=== PATIENT | male | born 1955 | race Caucasian/White ===

== ENCOUNTER 2022-02-09 15:29 | Outpatient (CLI) | payer MEDICARE, BC, SELFPAY ==
[2022-02-09 14:02] LABS: Chloride* 105 mmol/L (96-114); Potassium* 4.8 mmol/L (3.6-5.1); Sodium* 140 mmol/L (135-149)
[2022-02-09 14:04] LABS: Aspartate Amino Transferase* 27 U/L (12-35); Bilirubin Total* 0.6 mg/dL (0.1-1.5); Carbon Dioxide* 31 mmol/L (20-32); Cholesterol* 186 mg/dL (90-199); Creatinine* 0.8 mg/dL (0.5-1.5); Estimated Glomerular Filt Rate 97 ml/min; Total Protein* 6.6 g/dL (6.0-8.3)
[2022-02-09 14:05] LABS: Alanine Aminotransferase* 38 U/L (4-50); Alkaline Phosphatase* 95 U/L (40-150); Blood Urea Nitrogen* 18 mg/dL (7-30); Calcium* 8.9 mg/dL (8.4-10.6); Glucose* 105 mg/dL (60-115); Triglycerides* 138 mg/dL (40-149)
[2022-02-09 14:06] LABS: HDL Cholesterol* 41 mg/dL (>=40); LDL Cholesterol Calculated 117 mg/dL (<100)
[2022-02-09 14:35] LABS: PSA Screen* 2.14 ng/mL (0.10-4.00)
== END 2022-02-09 15:30 | disposition home or self-care (01) ==
PROVIDERS: PCP Internal Medicine; Visit Provider Internal Medicine
DX: E78.5 Hyperlipidemia, unspecified (principal)
CPT/HCPCS: 80053; 80061; 84153

== ENCOUNTER 2023-08-08 08:28 | Outpatient (CLI) | payer MEDICARE, SELFPAY ==
--- OUTSIDE RECORDS SUMMARY | 2023-08-08 12:41 | XMS_ITS | Clinical Summary ---
Author Name Unknown Organization [facility] Address [place], [place] [address] Care Team Providers Care Senior Clinical Study Manager Name Role Phone Macario Villa MD Primary Care Provider Allergies Active Allergy Reactions Criticality Noted Date Comments Ragweed Other - Describe In Comment Field sneezing Medications Medication Sig Dispensed Refills Start Date End Date Status aspirin (ECOTRIN) 81 mg enteric coated tablet Take 1 tablet by mouth once every other day. 0 02/12/2019 Active durable medical equipment (DME)Indications:Non-he aling ulcer of left foot, unspecified ulcer stage (HC),Acquired supination of left foot,Left foot drop Custom AFO for left foot 1 Each 0 05/13/2019 Active atorvastatin (LIPITOR) 20 mg tablet Take 1 Tablet (20 mg) by mouth once daily. 0 01/01/2022 Active Active Problems Problem Noted Date Diagnosed Date Acquired supination of left foot 05/13/2019 Left foot drop 05/13/2019 Non-healing ulcer of left foot 03/11/2019 Non-healing ulcer of ankle 02/17/2019 HYPERLIPIDEMIA 10/19/2003 Immunizations Name Administration Dates Next Due Tdap 02/09/2011 Family History Medical History Relation Name Comments Genetic Other Mother had Diab etes.~Father has hypercholesterolemia Relation Name Status Comments Other Social History Tobacco Use Types Packs/Day Years Used Date Smoking Tobacco: Former Cigarettes Smokeless Tobacco: Current Chew Tobacco Cessation:Counseling Given: Yes Alcohol Use Standard Drinks/Week Comments Yes 0 (1 standard drink = 0.6 oz pur e alcohol) 1 drink per month ks 01/01/22 Sex and Gender Information Value Date Recorded Sex Assigned at Not on file Gender Identity Not on file Sexual Orientation Not on file Obstetrics History Last Filed Vital Signs Vital Sign Reading Time Taken Comments Blood Pressure 162/106 01/01/2022 8:47 AM CDT Pulse 114 01/01/2022 8:47 AM CDT Temperature 36.3 ??C (97.3 ??F) 01/01/2022 8:47 AM CD T Respiratory Rate 18 01/01/2022 8:47 AM CDT Oxygen Saturation 95% 01/01/2022 8:47 AM CDT Inhaled Oxygen Concentration - - Weight 81.9 kg (180 lb 8 oz) 01/01/2022 8:47 AM CDT Height 181.6 cm (5' 11.5) 02/25/2019 1:23 PM CD T Body Mass Index 24.82 02/25/2019 1:23 PM CDT Plan of Treatment Health Maintenance Due Date Last Done Comments COVID-19 vaccine series (#1) 1955 Depression screening for age 12+ 1967 Hepatitis C screening for age 18-79 1973 Colonoscopy through age 75 01/30/2000 Zoster (shingles) series for age 50+ (1 of 2) 2005 Lipids for age 45-75 11/02/2008 11/03/2003, 11/03/19 04 Medicare Wellness for age 65+ 01/30/2020 Pneumococcal series for age 65+ (1 of 1 - PCV) 01/30/2020 BMI (ht and wt on same day) for age 18+ 02/26/2020 0 02/25/2019 Tetanus booster 02/09/2021 02/09/2011 Influenza for age 65+ 03/08/2023 Tdap Completed 02/09/2011 Care Teams Senior Clinical Study Manager Relationship Specialty Start Date End Date Macario Villa MD [address] [place] [address] PCP - General Emergency Medicine 02/22/16
--- OUTSIDE RECORDS SUMMARY | 2023-08-08 12:42 | XMS_ITS | Encounter Summary ---
Author Name Unknown Organization [facility] Address [address] [place] [id number] Care Team Providers Care Hasher Operator Name Role Phone Elsewhere, Pcp Primary Care Provider Unavailabl e Reason for Visit * Reason Onset Date Comments Appt Request 04/11/2023 Encounter Details Date Type Department Care Team ([facility] st Contact Info) Description 04/11/2023 Clinical Communication Department of Urology in [place], [place] [address] [place] [phone] Yuliana Flanagan, PGenoAOnel. [address] [place] [phone] Appt Request Social History Tobacco Use Types Packs/Day Years Used Date Smoking Tobacco: Former Cigarettes 0 0 0 07/12/1967 - 12/02/2006 Smokeless Tobacco: Current Chew Alcohol Use Standard Drinks/Week Comments Yes 1 (1 standard drink = 0.6 oz pur e alcohol) Humiliation, Afraid, Rape, and Kick questionnair e Answer Date Recorded Within the last year, have y ou been afraid of your partner or ex-partner? No 11/24/2022 Within the last year, have y ou been humiliated or emotionally abused in other ways by your partner or ex-partner? No Within the last year, have y ou been kicked, hit, slapped, or otherwise physically hurt by your partner or ex-partner? No 11/24/2022 Within the last year, have y ou been raped or forced to have any kind of sexual activity by your partner or ex-partner? No 11/24/2022 Social Connection and Isolat ion Panel [NHANES] Answer Date Recorded In a typical week, how many times do you talk on the phone with family, friends, or neighbors? More than three times a week 11/24/2022 How often do you get togethe r with friends or relatives? Once a week 11/24/2022 How often do you attend chur ch or oriental orthodox services? More than 4 times per year 11/24/2022 Do you belong to any clubs o r organizations such as mormonism groups, unions, fraternal or athletic groups, or school groups? Yes 11/24/2022 How often do you attend meet ings of the clubs or organizations you belong to? More than 4 times per year 11/24/2022 Are you , , di vorced, , never , or living with a partner? 11/24/2022 AUDIT-C Answer Date Recorded Q1: How often do you have a drink containing alc ohol? Monthly or less 11/24/2022 Q2: How many drinks containi ng alcohol do you have on a typical day when you are drinking? 1 or 2 11/24/2022 Q3: How often do you have si x or more drinks on one occasion? Never 11/24/2022 Overall Financial Resource Strain (CARDIA) Answe r Date Recorded How hard is it for you to pa y for the very basics like food, housing, medical care, and heating? Not hard at all 11/24/2022 [facility] - Occupational Stress Questionnaire Answer Date Recorded Do you feel stress - tense, restless, nervous, or anxious, or unable to sleep at night because your mind is troubled all the time - these days? Not at all 11/24/2022 Exercise Vital Sign Answer Date Recorde d On average, how many days pe r week do you engage in moderate to strenuous exercise (like a brisk walk)? 0 days 11/24/2022 On average, how many minutes do you engage in exercise at this level? 0 min 11/24/2022 Hunger Vital Sign Answer Date Recorded Within the past 12 months, y ou worried that your food would run out before you got the money to buy more. Never true 11/25/19 23 Within the past 12 months, t he food you bought just didn't last and you didn't have money to get more. Never true 11/24/2022 PRAPARE - Transportation Answer Date Re corded In the past 12 months, has l ack of transportation kept you from medical appointments or from getting medications? No 11/06 In the past 12 months, has l ack of transportation kept you from meetings, work, or from getting things needed for daily living? No 11/24/2022 Housing Stability Vital Sign Answer Adam e Recorded In the last 12 months, was t here a time when you were not able to pay the mortgage or rent on time? No 11/24/2022 In the last 12 months, how many places have you lived? 1 11/24/2022 In the last 12 months, was t here a time when you did not have a steady place to sleep or slept in a jail (including now)? No 11/24/2022 Nutrition Answer Date Recorded Nutrition: EVOO Fat Source No 11/24 On average, how many serving s of fruits and vegetables do you eat per day (serving size is equal to 1 cup or approximately the size of a tennis ball)? 0-1 11/24/2022 Dental Answer Date Recorded Dental: Regular Dentist Yes 07/08/19 Employment Answer Date Recorded Employment status Retired 11/24/2022 Education Answer Date Recorded What is the highest level of school you have completed or the highest degree you have received? Associate degree: occupational, technical, or vocational program 03/10/2020 Sex and Gender Information Value Date Recorded Sex Assigned at Male 03/05/2022 8:00 AM CDT Gender Identity Male 12/11/2020 6:50 PM CDT Sexual Orientation Straight 12/11/2020 6: 50 PM CDT documented as of this encounter Plan of Treatment Not on file documented as of this encounter Visit Diagnoses Not on filedocumented in this encounter Care Teams Hasher Operator Relationship Specialty Start Date End Date Elsewhere, Pcp PCP - General Family Medicine 02/28/22 documented as of this encounter
--- OUTSIDE RECORDS SUMMARY | 2023-08-08 12:42 | XMS_ITS | Encounter Summary ---
Author Name Unknown Organization [facility] Address [address] [place] [id number] Care Team Providers Care Desolderer Name Role Phone Elsewhere, Pcp Primary Care Provider Unavailabl e Encounter Details Date Type Department Care Team (Latest Contact Info) Description 05/03/2023 1:59 PM CDT - 05/03/2023 2:48 PM CDT Hospital Encounter Department of Laboratory Medicine and Pathology, [facility] in [place], [place] [address] [place] [phone] Yuliana Flanagan, PSurinder. [address] [place] [phone] Neurogenic Bladder Discharge Disposition: Home or Self Care Social History Tobacco Use Types Packs/Day Years [...] 11/24/2022 How often do you attend chur or confucianist services? More than 4 times per year 11/24/2022 Do you belong to any clubs o r organizations such as zoroastrian groups, unions, fraternal or athletic groups, or [...] and heating? Not hard at all 11/24/2022 [facility] - Occupational Stress [...] the money to buy more. Never true 05/20/20 23 Within the past 12 months, t [...] place to sleep or slept in a intermediate (including now)? No 11/24/2022 Nutrition Answer Date [...] PM CDT documented as of this encounter Medications at Time of Discharge Medication Sig Dispensed Refills Start Date End Date aspirin [address] tablet Take 81 mg by mouth every other day. 0 02/12/2019 atorvastatin (LIPITOR) 20 mg tablet Take 20 mg by mouth at bedtime. 0 01/11/2022 UNABLE TO FIND Custom AFO for left foot 0 05/13/2019 documented as of this encounter Plan of Treatment Not on file documented as of this encounter Procedures Procedure Name Priority Date/Time Associated Diagnosis Comments BASIC METABOLIC PANEL, S/P Routine 05/03/2023 2:09 PM CDT Neurogenic Bladder documented in this encounter Results * (ABNORMAL) Basic Metabolic Panel (05/03/2023 2:09 PM CDT) Potassium, S 5.4(H) 3.6 - 5.2 mmol/L 05/03/2023 3:23 PM CDT DTL Sodium, S 144 135 - 145 mmol/L 05/03/2023 3:23 PM CDT DTL Chloride, S 105 98 - 107 mmol/L 05/03/2023 3:23 PM CDT DTL Bicarbonate, S 29 22 - 29 mmol/L 05/03/2023 3:23 PM CDT DTL Anion Gap 10 7 - 15 05/03/2023 3:23 PM CDT DTL BUN (Blood Urea Nitrogen), S 19 8 - 24 mg/dL 05/03/2023 3:23 PM CDT DTL Creatinine 1.04 0.74 - 1.35 mg/dL 05/03/2023 3:23 PM CDT DTL Estimated GFR (eGFR) 78 >=60 mL/min/BSA 05/03/2023 3:23 PM CDT DTL Comment: Estimated GFR calculated using the 2020 CKD_EPI creatinine equation. Calcium, Total, S 9.3 8.8 - 10.2 mg/dL 05/03/2023 3:23 PM CDT DTL Glucose, S 127 70 - 140 mg/dL 05/03/2023 3:23 PM CDT DTL Blood (Blood, Venous) 05/03/2023 2:09 PM CDT 05/03/2023 2:54 PM CDT Yuliana Flanagan P.A.-C. LAB BLOOD ADD-ON [facility] [address] [place] [address], [place] DTL [facility] [address] [place] [address] documented in this encounter Visit Diagnoses Diagnosis Neurogenic Bladder documented in this encounter Care Teams Desolderer Relationship Specialty Start Date End Date Elsewhere, Pcp PCP - General Family Medicine 02/28/22 documented as of this encounter
--- OUTSIDE RECORDS SUMMARY | 2023-08-08 12:42 | XMS_ITS | Clinical Summary ---
Author Name Unknown Organization [facility] Address [address] [place] [address] Care Team Providers Care Deputy Probation Officer Name Role Phone Elsewhere, Pcp Primary Care Provider Unavailabl e Source Comments Patient records contain information from all sites at [facility]. For routine questions regarding patient records, call [phone] during business hours, M-F 8:00 AM - 5:00 PM Central Time. Record requests for emergency care only can be directed to [phone] at any time.[facility] Allergies Active Allergy Reactions Criticality Noted Date Comments Ragweed Other (see comments) 11/24/2014 Sneezing, itchy eyes Medications Medication Sig Dispensed Refills Start Date End Date Status aspirin [address] tablet Take 81 mg by mouth every other day. 0 02/12/2019 Active atorvastatin (LIPITOR) 20 mg tablet Take 20 mg by mouth at bedtime. 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 Neurogenic Bladder (Primary Dx) 05/22/2023 11:00 AM YARN BLEACHING MACHINE OPERATOR Comprehensive Visit Department of Physical Medicine and Rehabilitation in [place], [place] [address] [place] [phone] Meenakshi Villarreal APRN, CNS, MGenoS. Paraplegia (HCC) (Primary Dx); Abnormal Gait Non Orthopedic; Spasticity; Neurogenic Bladder; Neurogenic Bowel; Dysfunction Erectile Discharge Disposition: Home or Self Care 05/22/2023 9:00 AM YARN BLEACHING MACHINE OPERATOR Procedure visit Department of Physical Medicine and Rehabilitation in [place], [place] [address] [place] [address] Robbi Segal D.O. 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 More than 4 times per year 11/24/2022 Do you belong to any clubs o r organizations such as pentecostalism groups, unions, fraternal or athletic groups, or [...] and heating? Not hard at all 11/24/2022 [facility] [...] place to sleep or slept in a fpc (including now)? No 11/24/2022 Nutrition Answer Date [...] Orientation Straight 12/11/2020 6: 50 PM CDT Last Filed Vital Signs Vital Sign Reading Time Taken Comments Blood Pressure 134/90 03/10/2020 7:58 AM CDT Pulse 91 03/10/2020 7:58 AM CDT Temperature - - Respiratory Rate - - Oxygen Saturation - - Inhaled Oxygen Concentration - - Weight 79.4 kg (175 lb 0.7 oz) 12/26/2022 10:00 AM CDT Height 177 cm (5' 9.69) 12/26/2022 10:00 AM CDT Body Mass Index 25.34 12/26/2022 10:00 AM CDT Plan of Treatment Health Maintenance Due Date Last Done Comments CT Colonography 1955 Cologuard 1955 Colonoscopy 1955 Colorectal Cancer Screening 1955 FIT 1955 Hepatitis C Screening 1955 Tobacco Cessation counseling 1955 COVID-19 Vaccine (#1) 1955 Zoster Vaccines (1 of 2) 2005 Pneumococcal vaccine (65+ ye ars) (1 of 1 - PCV) 01/30/2020 DTaP,Tdap,and Td Vaccines (2 - Td or Tdap) 02/09/2021 02/09/2011 Influenza Vaccine (#1) 2023 Depression Screening (Annual PHQ-2) 07/08/2023 Fall Risk Screen (Annual) 07/08/2023 Fasting Glucose for Diabetes Screening 05/03/2026, 04/25/2022 Abdominal Aortic Aneurysm (AAA) Screen Discontinued Procedures Procedure Name Priority Date/Time Associated Diagnosis Comments PMR BOTULINUM TOXIN PROCEDURE Routine 05/22/2023 9:00 AM YARN BLEACHING MACHINE OPERATOR 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 ? 05/22/2023 ??9:32 AM PMR Botulinum toxin procedure Performed by: Robbi Segal D.O. Authorized by: Antoni Mars M.D. ?? Care team members present 1. Robbi Segal D.O. 2. Tricia Meade, RGenoNGeno PROCEDURE DETAILS Guidance used: EMG and ultrasound guidance ? Ultrasound image guidance used to localize target, identify at risk structures, and dynamically used to direct therapy to the target. Image(s) not saved. Needle gauge/size: 26 G 1.5 inch Negative aspiration used: yes ?? Amount of dilution (preservative free normal saline): 2 ml / 100 units Type of muscle: spastic Dose and ??Site: Left anterior tibialis - 25 units Left posterior tibialis - 75 units (2 sites) Total botulinum toxin lot # units wasted: 0 Total botulinum toxin lot # units injected: 100 CONSENT Consent obtained: written (Risks, benefits and alternatives were discussed and a written Informed Consent was obtained. Please see Informed Consent form for further details.) UNIVERSAL PROTOCOL All relevant documentation and testing were reviewed and available. All required blood products, implants, devices and or special equipment were made available as applicable. Pre-procedure verification was conducted and the correct site was marked if required. A fire risk assessment was done as applicable. The procedural time-out to verify correct patient, correct side/site, and procedure was conducted prior to performing the procedure and confirmed in a procedural pause. PRE PROCEDURE DETAILS Procedure purpose: therapeutic Skin preparation: alcohol SEDATION / ANESTHESIA Anesthesia method: none POST PROCEDURE DETAILS Procedure successful: yes ?? Complications: no apparent complications ?? COMMENTS ?? Patient notes that he is having less spasming in his anterior leg. ??He continues to describe inversion when the tucks in his wearing off of his left foot. ??H he does feel in his agrees that he is ambulating better when the toxin is taking affect. ??Denies any side effects to previous toxin injections. ??We have elected to proceed with an anterior tib and posterior tib injection under ultrasound and EMG guidance we will predominant toxin into the posterior tibialis. ??May be reaching the point where he is deriving less and less affect from toxin and has fairly good ambulation with cane and his braces. Antoni Mars M.D. PROCEDURE/MINOR SURGICAL ORDERABLES Performing Organization Address City/State/[facility] Co de Phone Number [facility] NA from Last 3 Months Care Teams Deputy Probation Officer Relationship Specialty Start Date End Date Elsewhere, Pcp PCP - General Family Medicine 02/28/22
--- OUTSIDE RECORDS SUMMARY | 2023-08-08 12:42 | XMS_ITS | Encounter Summary ---
Author Name Unknown Organization [facility] Address [address] [place] [id number] Care Team Providers Care Product Management Manager Name Role Phone Elsewhere, Pcp Primary Care Provider Unavailabl e Reason for Referral * Outpatient (Routine) - Authorized Specialty Diagnoses / Procedures Referred By Contac t Referred To Contact Diagnoses Neurogenic Bladder Procedures US Kidneys Bilateral with Bladder Yuliana Flanagan P.A.-C. [address] [place] [phone] [facility] Referral ID Status Reason Start Date Expiration Date V isits Requested Visits Authorized [id number] Authorized 05/23/2023 05/22/2024 1 1 SERVICE REPRESENTATIVE * Outpatient (Routine) - Authorized Specialty Diagnoses / Procedures Referred By Contac t Referred To Contact Urology Yuliana Flanagan P.A.-C. [address] [place] [phone] [facility] Referral ID Status Reason Start Date Expiration Date V isits Requested Visits Authorized [id number] Authorized 05/23/2023 05/22/2026 1 1 SERVICE REPRESENTATIVE Reason for Visit * Outpatient (Routine) - Closed Specialty Diagnoses / Procedures Referred By Contac t Referred To Contact Urology Yuliana Flanagan P.A.-C. [address] [place] [phone] Yuliana Flanagan P.A.-C. [address] [place] [phone] Referral ID Status Reason Start Date Expiration Date Visits Re quested Visits Authorized [id number] Closed 02/19/2023 02/18/2026 1 1 Encounter Details Date Type Department Care Team (Late st Contact Info) Description 05/23/2023 2:30 PM FOOD SERVICE REPRESENTATIVE Virtual Visit Department of Urology in [place], [place] [address] [place] [phone] Yuliana Flanagan P.A.-C. [address] [place] [phone] Neurogenic Bladder (Primary Dx) Social History Tobacco Use Types Packs/Day Years [...] week 11/24/2022 How often do you attend [facility] or temple services? More than 4 times per year 11/24/2022 Do you belong to any clubs o r organizations such as temple groups, unions, fraternal or athletic groups, or [...] and heating? Not hard at all 11/24/2022 [facility] - Occupational Stress [...] place to sleep or slept in a residential (including now)? No 11/24/2022 Nutrition Answer Date [...] PM CDT documented as of this encounter Progress Notes * Yuliana Flanagan P.A.-C. - 05/23/2023 2:30 PM CST SUBJECTIVE REFERRAL SOURCE The patient is being seen in consultation at the request of Yuliana Flanagan P.A.-C. [address] [place] [phone] REASON FOR CONSULT Patient on my calendar. Neurogenic bladder recheck. HISTORY OF PRESENT ILLNESS Mr. Hensley is a pleasant 68 y.o. male who presents today for neurogenic bladder. 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 In 2015, he developed urinary retention and inability to catheterize. He underwent cystoscopy which showed a mildly obstructive prostate and a high- riding bladder neck. He transition from a straight tip catheter to a coude tip catheter. He did meet with Urology in 2019 and underwent urodynamic study. He was noted to have a normal bladder capacity with reduced bladder compliance. There is no evidence of detrusor instability or stress incontinence. He voided by Valsalva with findings consistent with an acontractile bladder. At that visit, he was recommended to continue with CIC 5-6 times per day. Urodynamic study completed at his last visit showed normal bladder compliance and an acontractile bladder. He was recommended to continue to catheterize. He has not been having any bladder concerns. He is currently catheterizing 4-6 times per day depending on fluid intake. He doesn't have any trouble passing the catheter. With the current catheters heis doing much better with passing the catheter. He is using prelubricated catheters. He is still using the coude tip catheter. He has not had any urinary tract infections. No urinary incontinence. PMH/PSH The following portions of the patient's history were reviewed and updated as appropriate: allergies, current medications, family history, medical history, social history, surgical history, and problem list. REVIEW OF SYSTEMS REVIEW OF SYSTEMS OBJECTIVE LABS Creatinine dated May 03, 2023 was 1.04. IMAGING Renal ultrasound showed no evidence of hydronephrosis. ASSESSMENT / PLAN #1 Neurogenic bladder on CIC #2 Spinal Cord Infarct I had the pleasure of speaking with Mr. Hensley on the phone today. He had a creatinine completed May 03, 2023 that was 1.04. Renal ultrasound dated May 03, 2023 showed no evidence of hydronephrosis. He has been doing well since last year. No urinary incontinence or infections. We will plan for follow- up in 1 year with creatinine, renal ultrasound, and office visit. On his lab work from April, he had a slightly elevated potassium. We discussed decreasing dietary potassium in having this rechecked with his primary care provider. All questions answered. He will call with further questions. Signed by: Yuliana Flanagan P.A.-C. 05/23/2023 2:33 PM FOOD SERVICE REPRESENTATIVE SERVICE REPRESENTATIVE documented in this encounter Plan of Treatment Scheduled Orders Name Type Priority Associated Diagnoses Orde r Schedule Creatinine with Estimated GFR Lab Routine Neurogenic Bladder Expected: 05/23/2024 (Approximate), Expires: 08/23/2024 US Kidneys Bilateral with Bladder Imaging RAD - Routine (most inpatients and all outpatients) Neurogenic Bladder Expected: 05/23/2024 (Approximate), Expires: 08/23/2024 Scheduled Referrals Name Type Priority Associated Diagnoses Orde r Schedule Urology office visit (clinic) Outpatient Referral Routine Expected: 05/23/2024 (Approximate), Expires: 08/23/2024 documented as of this encounter Visit Diagnoses Diagnosis Neurogenic Bladder- Primary documented in this encounter Care Teams Product Management Manager Relationship Specialty Start Date End Date Elsewhere, Pcp PCP - General Family Medicine 02/28/22 documented as of this encounter
--- OUTSIDE RECORDS SUMMARY | 2023-08-08 12:42 | XMS_ITS | Encounter Summary ---
Author Name Unknown Organization [facility] Address [address] [place] [address] Care Team Providers Care Manager Of Regulatory Affairs Name Role Phone Elsewhere, Pcp Primary Care Provider Unavailabl e Encounter Details Date Type Department Care Team (Late st Contact Info) Description 01/25/2023 4:20 PM CDT Ancillary Procedure Department of Vascular Social History Tobacco Use Types Packs/Day Years [...] often do you attend chur ch or anabaptist services? More than 4 times per year 11/24/2022 Do you belong to any clubs o r organizations such as protestant groups, unions, fraternal or athletic groups, or [...] and heating? Not hard at all 11/24/2022 [facility] of Occupat ional Health - Occupational Stress [...] Procedure Name Priority Date/Time Associated Diagnosis Comments VASCULAR IMAGE EXAM Routine 01/25/2023 4 :20 PM CDT documented in this encounter Results * Foot, Left-Vascular Image Exam (01/25/2023 4:20 PM CDT) 01/25/2023 4:19 PM CDT Narrative [facility] - 01/25/2023 4:21 PM CDT This order has been created and auto-finalized to support the import of images acquired without order. The clinical documentation to support these images can be found on the encounter that produced images. Provider Not In System IMG NON RAD IMAGI NG PROCEDURES [facility] NA documented in this encounter Visit Diagnoses Not on filedocumented in this encounter Care Teams Manager Of Regulatory Affairs Relationship Specialty Start Date End Date Elsewhere, Pcp PCP - General Family Medicine 02/28/22 documented as of this encounter
--- OUTSIDE RECORDS SUMMARY | 2023-08-08 12:42 | XMS_ITS | Encounter Summary ---
Author Name Unknown Organization [facility] Address [address] [place] [address] Care Team Providers Care Inspector Timers Name Role Phone Elsewhere, Pcp Primary Care Provider Unavailabl e Reason for Referral * Outpatient (Routine) - Authorized Specialty Diagnoses / Procedures Referred By Contact Referred To Contact Physical Medicine and Rehabilitation Meenakshi Villarreal APRN, MARY, M.S. [address] [place] [phone] [facility] Referral ID Status Reason Start Date Expiration Date V isits Requested Visits Authorized [id number] Authorized 05/22/2023 05/21/2026 1 1 PING ROOM CLEANER Reason for Visit * Outpatient (Routine) - Closed Specialty Diagnoses / Procedures Referred By Contact Referred To Contact Physical Medicine and Rehabilitation Meenakshi Villarreal APRN, MARY, M.S. [address] [place] [phone] [facility] Referral ID Status Reason Start Date Expiration Date Visits Re quested Visits Authorized [id number] Closed 03/14/2023 03/13/2026 1 1 Encounter Details Date Type Department Care Team (Latest Contact Info) Description 05/22/2023 11:00 AM SLEEPING ROOM CLEANER Comprehensive Visit Department of Physical Medicine and Rehabilitation in [place], [place] [address] [place] [phone] Meenakshi Villarreal APRN, MARY, M.S. [address] [place] [phone] Paraplegia (HCC) (Primary Dx); Abnormal Gait Non Orthopedic; Spasticity; Neurogenic Bladder; Neurogenic Bowel; Dysfunction Erectile Discharge Disposition: Home or Self Care Social [...] week 11/24/2022 How often do you attend [facility] or worship services? More than 4 times per year 11/24/2022 Do you belong to any clubs o r organizations such as alevism groups, unions, fraternal or athletic groups, or [...] and heating? Not hard at all 11/24/2022 [facility] - [facility] Questionnaire Answer Date Recorded [...] money to buy more. Never true 11/25/19 Within the past 12 months, t he [...] place to sleep or slept in a alf (including now)? No 11/24/2022 Nutrition Answer Date [...] as of this encounter Progress Notes * Meenakshi Villarreal APRN, CNS, M.S. - 05/22/2023 11:00 AM CST SUBJECTIVE REQUESTING PROVIDER Meenakshi Villarreal APRN, CNS, M.S. CHIEF COMPLAINT/REASON FOR VISIT Spinal cord dysfunction follow-up HISTORY OF PRESENT ILLNESS Mr. Peng Hensley a 68 y.o. 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 He ambulates to his appointment today using a single point cane as well as his bilateral carbon-fiber AFOs that were obtained early in 2022. He wears his AFOs 12+ hours a day. When I would seen him on a virtual visit in March he was informs me of rolling his ankle even in the brace when ambulating. Scar Moreau, from [facility] joints me today to assess his gait as well as his current status of his leftAFO. He does endorse significant rolling of his ankle without the AFO and does have to remind himself to be very cognizant of how he places his foot on the ground. He underwent Xeomin injection total of 100 units to his left anterior tibialis and left posterior tibialis, prior to my appointment. He did find this injection site pattern to be helpful at his last round of Botox. He continues to manage his neurogenic bladder via self intermittent catheterization 4 to 6 times a day depending on his fluid intake. He has a history of mildly obstructive prostate and high-riding bladder neck therefore uses a coude tip catheter 14 [place]. He underwent urodynamic studies last year. He is following up with Urology tomorrow via virtual visit secondary to his current blood work andultrasound of his kidneys. He otherwise denies any difficulty with his neurogenic bladder. Continues to manage his neurogenic bowel with attempting to have a bowel movement using Valsalva maneuver and digital stimulation when needed on a daily basis. He does not take any oral medications. He does not have sensation of rectal fullness, he does attempt to keep his stools formed as he will have small incontinence with looser stool especially when performing strenuous activities. He does eat 2 meals a day, at times may eat three times a day. He does endorse ability to attain an erection however is unable to sustain. He has trialed Viagra in the past however does not appreciate the side effects. He informs me he is also tried Cialis in the past with no significant difference, finally does endorse the cost of these medications is somewhat prohibiting. He denies any impairments to his insensate skin. PHYSICAL EXAM Gait: Ambulation with bilateral AFOs and single-point cane, he does trend into mild hyperextension of his left knee with lateral rotation of his ankle despite wearing the AFOs. He does have a loose heel lift in his shoe that slides on him in his not secure which he wears between his AFO and his shoe. ASSESSMENT / PLAN #1 Paraplegia (HCC) He continues to have excellent attitude despite his incomplete paraplegia. #2 Abnormal Gait Non Orthopedic He will benefit from a lift onto his left AFO along with a lateral buttress to maintain stability for his gait pattern. He will schedule appointment at [facility] to accommodate this. #3 Spasticity As above he does appreciate the effect of the Xeomin, hopefully will have the same effect after today's Botox injection. #4 Neurogenic Bladder He is doing excellent job at managing his neurogenic bladder and is followed closely by our colleagues in urology. #5 Neurogenic Bowel I do encourage him to eat small meals throughout the day to help with motility and avoid times of constipation. He otherwise has garnered the best way to manage his neurogenic bowel at this time. #6 Dysfunction Erectile As above we did discuss his erectile dysfunction has no further concerns. I did discuss using a good Rx coupon should he like to move forward and trialing Cialis or Viagra again in the future. I would like to see him back in 1 year's time frame. EDUCATION We discussed the diagnosis and treatment plan in detail. The patient expressed understanding of thecontent. No apparent learning barriers were identified; learning preferences include listening. I spent 35 minutes face to face and non-face to face caring for the patient today. Signed by: Meenakshi Villarreal APRN, CNS, M.S. 05/22/2023 3:30 PM SLEEPING ROOM CLEANER PING ROOM CLEANER documented in this encounter Plan of Treatment Scheduled Referrals Name Type Priority Associated Diagnoses Order Schedule Physical Medicine and Rehabilitation office visit (clinic) Outpatient Referral Routine Expected: 05/22/2024 (Approximate), Expires: 08/22/2024 documented as of this encounter Visit Diagnoses Diagnosis Paraplegia (HCC)- Primary Abnormal Gait Non Orthopedic Spasticity Neurogenic Bladder Neurogenic Bowel Dysfunction Erectile documented in this encounter Care Teams Inspector Timers Relationship Specialty Start Date End Date Elsewhere, Pcp PCP - General Family Medicine 02/28/22 documented as of this encounter
--- OUTSIDE RECORDS SUMMARY | 2023-08-08 12:42 | XMS_ITS | Encounter Summary ---
Author Name Unknown Organization [facility] Address [address] [place] [address] Care Team Providers Care Heat Treating Operator Name Role Phone Elsewhere, Pcp Primary Care Provider Unavailabl e Reason for Visit * Outpatient (Routine) - Authorized Specialty Diagnoses / Procedures Referred By Yaron t Referred To Contact Diagnoses Acute Infarction Of Spinal Cord Embolic Nonembolic (HCC) Abnormal Gait Non Orthopedic Spasticity Procedures PMR Botulinum toxin procedure OH XEOMIN, PER UNIT Antoni Mars M.D. [address] [place] [phone] [facility] Referral ID Status Reason Start Date Expiration Date V isits Requested Visits Authorized [id number] Authorized 03/05/2023 03/05/2024 1 4 Encounter Details Date Type Department Care Team (Latest Contact Info) Description 05/22/2023 9:00 AM SPECIAL SERVICE OFFICER Procedure visit Department of Physical Medicine and Rehabilitation in [place], [place] [address] [place] [phone] Robbi Segal D.O. [address] [place] [phone] Acute Infarction Of Spinal Cord Embolic Nonembolic (HCC); Abnormal Gait Non Orthopedic; Spasticity Social History Tobacco Use Types Packs/Day Years [...] week 11/24/2022 How often do you attend [facility] or zoroastrianism services? More than 4 times per year 11/24/2022 Do you belong to any clubs o r organizations such as christianity groups, unions, fraternal or athletic groups, or [...] and heating? Not hard at all 11/24/2022 [facility] of Occupat ional Health - Occupational Stress [...] PM CDT documented as of this encounter Procedure Notes * Robbi Segal D.O. - 05/22/2023 9:00 AM CSTAssociated Order(s): PMR Botulinum toxin procedure Pre-Procedure Diagnose(s): Acute Infarction Of Spinal Cord Embolic Nonembolic (HCC); Abnormal Gait Non Orthopedic; Spasticity Post-Procedure Diagnose(s): Acute Infarction Of Spinal Cord Embolic Nonembolic (HCC); Abnormal GaitNon Orthopedic; Spasticity PMR Botulinum toxin procedure Performed by: Robbi Segal D.O. Authorized by: Antoni Mars M.D. Care team members present 1. Robbi Segal D.O. 2. Tricia Meade R.N. PROCEDURE DETAILS Guidance used: EMG and ultrasound guidance ?? Ultrasound image guidance used to localize target, identify at risk structures, and dynamically used to direct therapy to the target. Image(s) not saved. Needle gauge/size: 26 G 1.5 inch Negative aspiration used: yes Amount of dilution (preservative free normal saline): 2 ml / 100 units Type of muscle: spastic Dose and Site: Left anterior tibialis - 25 units Left [...] none POST PROCEDURE DETAILS Procedure successful: yes Complications: no apparent complications COMMENTS Patient notes that he is having less spasming in his anterior leg. He continues to describe inversion when the tucks in his wearing off of his left foot. H he does feel in his agrees that he is ambulating better when the toxin is taking affect. Denies any side effects to previous toxin injections. We have elected to proceed with an anterior tib and posterior tib injection under ultrasound and EMG guidance we will predominant toxin into the posterior tibialis. May be reaching the point where he is deriving less and less affect from toxin and has fairly good ambulation with cane and his braces. IAL SERVICE OFFICER documented in this encounter Plan of Treatment Not on file documented as of this encounter Procedures Procedure Name Priority Date/Time Associated Diagnosis Comments PMR BOTULINUM TOXIN PROCEDURE Routine 05/22/2023 9:00 AM SPECIAL SERVICE OFFICER Acute Infarction Of Spinal Cord Embolic Nonembolic (HCC) Abnormal Gait Non Orthopedic Spasticity documented in this encounter Results * PMR Botulinum toxin procedure (05/22/2023 9:00 AM SPECIAL SERVICE OFFICER) Narrative MMODAL - 05/22/2023 9:00 AM SPECIAL SERVICE OFFICER Robbi Segal D.O. ? 05/22/2023 ??9:32 AM PMR Botulinum toxin procedure Performed by: Robbi Segal D.O. Authorized by: Antoni Mars M.D. ?? Care team members present 1. Robbi Segal D.O. 2. Tricia Meade RGenoNGeno PROCEDURE DETAILS Guidance used: EMG and [...] braces. Antoni Mars M.D. PROCEDURE/MINOR SURGICAL ORDERABLES MMODAL NA documented in this encounter Visit Diagnoses Diagnosis Acute Infarction Of Spinal Cord Embolic Nonembolic (HCC) Abnormal Gait Non Orthopedic Spasticity documented in this encounter Administered Medications Inactive Administered Medications - up to 3 most recent administrations Medication Order MAR Action Action Date Dose Rate Site incobotulinumtoxinA injection 150 Units (XEOMIN) 150 Units, intramuscular, Once, On Mikaela 05/16/23 at 0000, For 1 dose, Reconstitute per package insert instructions according to rcis. Given 05/22/2023 9:26 AM SPECIAL SERVICE OFFICER 100 Units Other documented in this encounter Care Teams Heat Treating Operator Relationship Specialty Start Date End Date Elsewhere, Pcp PCP - General Family Medicine 02/28/22 documented as of this encounter
--- OUTSIDE RECORDS SUMMARY | 2023-08-08 12:42 | XMS_ITS | Encounter Summary ---
Author Name Unknown Organization [facility] Address [address] [place] [address] Care Team Providers Care Supervisor Cemetery Workers Name Role Phone Elsewhere, Pcp Primary Care Provider Unavailabl e Reason for Visit * Outpatient (Routine) - Closed Specialty Diagnoses / Procedures Referred By Yaron t Referred To Contact Vascular Medicine Lupe Angel APRN, C.N.P., D.N.P. [address] [place] [phone] [facility] Referral ID Status Reason Start Date Expiration Date Visits Re quested Visits Authorized [id number] Closed 12/26/2022 12/25/2025 1 1 Encounter Details Date Type Department Care Team (Late st Contact Info) Description 01/25/2023 4:15 PM CDT Office Visit Department of Vascular Medicine in [place], [place] [address] [place] [phone] Olayinka Milton APRN, C.N.P., D.N.P. 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 More than 4 times per year 11/24/2022 Do you belong to any clubs o r organizations such as hindu groups, unions, fraternal or athletic groups, or [...] heating? Not hard at all 11/24/2022 [facility] - Occupational [...] place to sleep or slept in a senior care (including now)? No 11/24/2022 Nutrition Answer Date [...] PM CDT documented as of this encounter Patient Instructions * Patient Instructions* Shanti Rm R.N. - 01/25/2023 4:15 PM CDT Take your shoes off throughout the day to let your feet air out. Change your socks if they are wet. Apply AmLactin cream to callused areas. Moisturize your heels and feet with unscented moisturizer. Wound Location: Left lateral foot. -- This is HEALED as of 01/25/23 Wash hands Remove old dressing Gently cleanse ulcer base with rough gauze and normal saline (in a gently circular motion) Cut mepilex lite to size of wound. Sticky side on the wound. Secure with cover roll stretch tape Change dressing every 3-5 days or after showering. Continue with this dressing for another 2-3 weeks. Additional Instructions: General Verbal consent obtained to take wound photos at today's visit. Watch for signs of infection: Increased redness, swelling, odor, drainage or pain. Elevated blood sugars or elevated temperature may indicate infection. Seek medical attention immediately with any ofthese signs. Do not leave wounds open to air. Check lower extremities/feet daily for new wounds. Never walk barefoot/stocking foot. Always wear protective footwear when walking. Do not use tape or band-aid on skin unless recommended by provider. Recipe Normal Saline Recipe- 1 teaspoon of salt mixed in 1 quart of distilled water. Do not add solution back to bottle. May keep in refrigerator for up to 1 week. Showering/Bathing Do not soak wounds. This includes swimming. hot tubs, etc. Keep dressing on during shower. Change dressing immediately after showering. Footwear Wear your definitive footwear on both feet with AFO's In process of getting AFO's readjusted (noted on 11/26/22) Wean to Wear: Be sure to inspect your feet carefully each day after wearing your new shoes. Look for redness, bleeding, warmth, blisters and any sign of a new wound. Day 1 - Wear new shoes for 30 minutes only. Day 2 through 7 - Increase your time by 30 minutes each day until you reach 3 hours. Day 7 through 14 - You may wear shoes track laying machine operator in your house only. Beyond day 14 - If no problems have developed, you may begin wearing them outside the house. If you have any wound care questions or concerns please contact the Vascular Center at [phone]. If you need to cancel, reschedule, or schedule a wound care appointment please call [phone]. Provider Signature Olayinka Milton APRN, C.N.P., D.N.P. documented in this encounter Progress Notes * Olayinka Milton APRN, C.N.P., D.N.P. - 01/25/2023 4:15 PM CDT SUBJECTIVE CHIEF COMPLAINT / REASON FOR VISIT Re-evaluation of left lateral foot wound. Patient seen at the Vascular Wound Center. HISTORY OF PRESENT ILLNESS Mr. Peng Hensley is a pleasant 67 y.o. male here today for re-evaluation of left lateral foot wound. Medical history significant for hyperlipidemia, past CVA, lower extremity sensory loss and contractures. He is a former tobacco user with a quit year of 2006. Due to his sensory loss/contractures, he wears a LLE AFO to mobilize. Around August of 2022, modifications were made to this brace and shortly after he noted significant callus build up with subsequent ulceration. He has had ulcerations in this region in the past. He was most recently evaluated by the vascular Wound Center on December 12, 2022. Due to fast callus seen, alginate was tucked into the wound to wick away moisture. He is working on having modifications to his brace done. Most recently seen in wound care on 01/10/2023 during a provider visit. For the ulcerations/wounds recommendations included Mepilex Lite. Today, patient reports appears to be improving. He is accompanied by his . Patient has been compliant with recommendations as described above. Denies concerning signs for infection.. The following portions of the patient's history were reviewed and updated as appropriate: allergies, current medications, family history, past medical history, social history, surgical history, problem list, labs, diagnostics tests. I reviewed the pertinent clinical notes in the electronic health record. OBJECTIVE PHYSICAL EXAMINATION There were no vitals filed for this visit. There is no height or weight on file to calculate BMI. General: Patient is a healthy-appearing male in no acute distress. Head: Atraumatic and normocephalic. Lungs: Non-labored breathing, no cyanosis noted. Extremities: No edema noted in left lower extremity . Warm, well perfused left lower extremity. Gait: Steady and stable. Mental: Pleasant, alert, and oriented with normal affect. Skin: Dry and pink with good turgor. No rashes or ecchymosis seen. Wound Review: Location: Left lateral foot After sharp debridement, no open ulceration. Healed with epithelium. Measurements: 0 x 0 x 0 cm PROCEDURE DETAILS As indicated, sharp debridement was performed today removing devitalized tissue from the following ulcers/wounds: Left lateral foot ulceration: Topical anesthetic (Lidocaine):None. Debridement performed using: Forceps and Curette . Level of Debridement: Skin/Epidermis only. . Complications: No complications. INFORMED CONSENT: Discussed the risks, benefits, alternatives, and the necessity of other members of the healthcare team participating in the procedure. All questions answered and consent given. Please see flow sheets and photographs for additional information. DIAGNOSTIC REVIEW All labs and diagnostic studies/imaging were reviewed. 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 Hensley presents today for re-evaluation of left lateral foot ulceration in the setting of pressure. The left lateral foot ulceration has gone on to heal with epithelium. For the left lateral foot fragile epithelium would recommend Mepilex Lite to pad and protect for an additional 2 weeks. After 2weeks if remaining healed can discontinue. Dressings to be changed daily. Prior to reapplication cleanse with normal saline and rough gauze. He does not have pressure ulcers of the sacrum. However his Roho cushion is deflated and appears asmita malfunctioning. Provided new prescription for Roho cushion. Follow-up: Wound RN visit: None Wound Provider visit: As needed. Healed. It was a pleasure to see Mr. Hensley. Patient ready to learn. No apparent learning barriers were identified. Explained diagnosis and treatment plan. Patient verbalized understanding of all the recommendations and was in agreement with the plan. If any additional questions or concerns arise in the interim, please contact the Vascular Wound Center. Please see the After Visit Summary and/or Patient Instructions outlined in the encounter for details regarding wound care instructions. Olayinka Milton APRN, C.N.P., D.N.P. Total time spent with patient: 25 minutes. Time spent in counselin minutes. Billing does not reflect debridement time. 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
--- OUTSIDE RECORDS SUMMARY | 2023-08-08 12:42 | XMS_ITS | Encounter Summary ---
Author Name Unknown Organization [facility] Address [address] [place] [address] Care Team Providers Care Steam Setter Name Role Phone Elsewhere, Pcp Primary Care Provider Unavailabl e Reason for Referral * Outpatient (Routine) - Closed Specialty Diagnoses / Procedures Referred By Contac t Referred To Contact Diagnoses Neurogenic Bladder Procedures US Kidneys Bilateral with Bladder Yuliana Flanagan P.A.-C. [address] [place] [phone] [facility] Referral ID Status Reason Start Date Expiration Date Visits Re quested Visits Authorized [id number] Closed 05/03/2022 05/03/2023 1 1 Reason for Visit * Outpatient (Routine) - Closed Specialty Diagnoses / Procedures Referred By Contac t Referred To Contact Diagnoses Neurogenic Bladder Procedures US Kidneys Bilateral with Bladder Yuliana Flanagan P.A.-C. [address] [place] [address] [facility] Referral ID Status Reason Start Date Expiration Date Visits Re quested Visits Authorized [id number] Closed 05/03/2022 05/03/2023 1 1 Encounter Details Date Type Department Care Team (Latest Contact Info) Description 05/03/2023 2:49 PM CDT - 05/03/2023 11:59 PM CDT Hospital Encounter Department of Radiology, [facility], in [place], [place] [address] [place] [phone] Yuliana Flanagan P.A.-C. [address] [place] [phone] Neurogenic Bladder Discharge Disposition: Home or Self [...] week 11/24/2022 How often do you attend [facility] or mormon services? More than 4 times per year 11/24/2022 Do you belong to any clubs o r organizations such as confucianism groups, unions, fraternal or athletic groups, or [...] and heating? Not hard at all 11/24/2022 [facility] Stress Questionnaire Answer Date Recorded [...] Procedure Name Priority Date/Time Associated Diagnosis Comments US KIDNEYS BILATERAL WITH BLADDER RAD - Routine (most inpatients and all outpatients) 05/03/2023 3:15 PM CDT Neurogenic Bladder documented in this encounter Results * US Kidneys Bilateral with Bladder (05/03/2023 3:15 PM CDT) Anatomical Region Laterality Modality Abdomen, Renal, Ultrasound R ST LOS, Ultrasound ARZ LOS, Ultrasound FLA LOS Bilateral Ultrasound 05/03/2023 3:17 PM CDT Impressions 05/03/2023 3:35 PM CDT Both kidneys appear normal. No hydronephrosis. Narrative 05/03/2023 3:35 PM CDT EXAM: US KIDNEYS BILATERAL WITH BLADDER COMPARISON: Ultrasound 06/25/2022, CT abdomen/pelvis 12/05/2018. FINDINGS: Right kidney: 11.6 cm. Cortical thickness: Normal. ??Dromedary hump again incidentally noted. Parenchymal echogenicity: Normal. Collecting system: No hydronephrosis. Masses: Small simple cyst, unchanged. Left kidney: 10.6 cm. Cortical thickness: Normal. Parenchymal echogenicity: Normal. Collecting system: No hydronephrosis. Masses: None detected. Bladder: Mildly trabeculated bladder. Mild diffuse bladder wall thickening is likely due to under distention. Procedure Note Bryan Ho M.D. - 05/03/2023 EXAM: US KIDNEYS BILATERAL WITH BLADDER COMPARISON: Ultrasound 06/25/2022, CT abdomen/pelvis 12/05/2018. FINDINGS: Right kidney: 11.6 cm. Cortical thickness: Normal. Dromedary hump again incidentally noted. Parenchymal echogenicity: Normal. Collecting system: No hydronephrosis. Masses: Small simple cyst, unchanged. Left kidney: 10.6 cm. Cortical thickness: Normal. Parenchymal echogenicity: Normal. Collecting system: No hydronephrosis. Masses: None detected. Bladder: Mildly trabeculated bladder. Mild diffuse bladder wall thickeningis likely due to under distention. IMPRESSION: Both kidneys appear normal. No hydronephrosis. Yuliana Flanagan P.A.-C. IMJordan US PROCEDURE S documented in this encounter Visit Diagnoses Diagnosis Neurogenic Bladder documented in this encounter Care Teams Steam Setter Relationship Specialty Start Date End Date Elsewhere, Pcp PCP - General Family Medicine 02/28/22 documented as of this encounter
--- OUTSIDE RECORDS SUMMARY | 2023-08-08 12:42 | XMS_ITS | Encounter Summary ---
Author Name Unknown Organization [facility] Address [address] [place] [address] Care Team Providers Care Accounting Technician Name Role Phone Elsewhere, Pcp Primary Care Provider Unavailabl e Reason for Visit * Reason Onset Date Comments Follow-up 03/20/2023 Xeomin Injection Results Encounter Details Date Type Department Care Team (Latest Contact Info) Description 03/20/2023 Clinical Communication Department of Physical Medicine and Rehabilitation in [place], [place] [address] [place] [address] Meenakshi Villarreal APRN, SHUTTLE PREPARATION SUPERVISOR, M.S. [address] [place] [phone] Follow-up (Xeomin Injection Results ) Social History Tobacco Use Types Packs/Day Years [...] How often do you attend chur or yarsanism services? More than 4 times per year 11/24/2022 Do you belong to any clubs o r organizations such as orthodoxy groups, unions, fraternal or athletic groups, or [...] and heating? Not hard at all 11/24/2022 [facility] Occupat ional Health - Occupational Stress [...] place to sleep or slept in a halfway (including now)? No 11/24/2022 Nutrition Answer Date [...] PM CDT documented as of this encounter Miscellaneous Notes * Telephone Encounter - Tricia Meade, R.N. - 03/20/2023 9:22 AM CDT Call patient for Xeomin f/u. Increased dose from 40 to 100 units. See how it is doing with foot turn. Looks like Meenakshi Villarreal is his primary pmr provider? Or can cc dr mars. Patient met with Meenakshi Villarreal 03/14/23: He underwent botulinum toxin procedure on February 13, [address] Mars. Mr[address] Hensley informs me thatdifferent muscle groups were targeted than previous injections, his left tibialis posterior was injected with 100 units at 3 different sites. He does feel that this injection seem to work quite well for him and would like to continue with the dose and injection site for his next round of Botox. Patient is scheduled 05/22/23 for next injections. Patient will not be called further. documented in this encounter Plan of Treatment Not on file documented as of this encounter Visit Diagnoses Not on filedocumented in this encounter Care Teams Accounting Technician Relationship Specialty Start Date End Date Elsewhere, Pcp PCP - General Family Medicine 02/28/22 documented as of this encounter
--- OUTSIDE RECORDS SUMMARY | 2023-08-08 12:42 | XMS_ITS | Referral Summary ---
Author Name Unknown Organization [facility] Address [address] [place] [address] Care Team Providers Care Surgical Corsetier Name Role Phone Elsewhere, Pcp Primary Care Provider Unavailabl e Source Comments Patient records contain information from all sites at [facility]. For routine questions regarding patient records, call [phone] during business hours, M-F 8:00 AM - 5:00 PM Central Time. Record requests for emergency care only can be directed to [phone] at any time.[facility] Encounters Date Type Department Care Team Description 05/23/2023 2:30 PM TOY ASSEMBLY SUPERVISOR Virtual Visit Department of Urology in [place], [place] [address] [place] [address] Yuliana Flanagan, PGenoA.LyndsayC. Neurogenic Bladder (Primary Dx) 05/22/2023 11:00 AM TOY ASSEMBLY SUPERVISOR Comprehensive Visit Department of Physical Medicine and Rehabilitation in [place], [place] [address] [place] [phone] Meenakshi Villarreal APRN, MEDICAL OFFICE REP, M.S. Paraplegia (HCC) (Primary Dx); Abnormal Gait Non Orthopedic; Spasticity; Neurogenic Bladder; Neurogenic Bowel; Dysfunction Erectile Discharge Disposition: Home or Self Care 05/22/2023 9:00 AM TOY ASSEMBLY SUPERVISOR Procedure visit Department of Physical Medicine and Rehabilitation in [place], [place] [address] [place] [phone] Robbi Segal D.O. 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 More than 4 times per year 11/24/2022 Do you belong to any clubs o r organizations such as bahai groups, unions, fraternal or athletic groups, or [...] heating? Not hard at all 11/24/2022 [facility] Occupat ional Health - Occupational Stress [...] place to sleep or slept in a [place] [facility] [place] facility (including now)? 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 ? 05/22/2023 ??9:32 AM [...] Mars M.D. PROCEDURE/MINOR SURGICAL ORDERABLES [facility] NA from Last 3 Months Care Teams Surgical Corsetier Relationship Specialty Start Date End Date Elsewhere, Pcp PCP - General Family Medicine 02/28/22
--- OUTSIDE RECORDS SUMMARY | 2023-08-08 12:42 | XMS_ITS ---
Author Name Unknown Organization [facility] Address [address] [place] [address] Care Team Providers Care Pharmacy Technician Inpatient Name Role Phone Unavailable Unavailable Unavailable Surgery Details Not on file Complications Check Surgery Details section. Procedure Estimated Blood Loss Check Surgery Details section. Procedure Findings Check Surgery Details section. Procedure Specimens Taken Check Surgery Details section.
--- OUTSIDE RECORDS SUMMARY | 2023-08-08 12:42 | XMS_ITS | Encounter Summary ---
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 [address] [place] [address] [facility] Referral ID Status Reason Start Date Expiration Date Visits Re quested Visits Authorized [id number] Closed 12/20/2022 01/04/2024 1 1 Encounter Details Date Type Department Care Team (Latest Contact Info) Description 02/13/2023 8:00 AM CDT Procedure visit Department of Physical Medicine and Rehabilitation in [place], [place] [address] [place] [address] Antoni Mars M.D. [address] [place] [address] Acute Infarction Of Spinal Cord Embolic Nonembolic [...] How often do you attend chur or rastafari services? More than 4 times per year [...] and heating? Not hard at all 11/24/2022 [facility] - [...] to sleep or slept in a senior living (including now)? No 11/24/2022 Nutrition Answer Date [...] as of this encounter Procedure Notes * Antoni Mars M.D. 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 I have alsoreviewed the pertinent clinical notes in the electronic health record. To summarize: Ayden is a 68 y.o. male who presents today for follow up in the Spasticity clinic, for repeat botulinum toxin injections. The last injections were performed on November 08, 2022, and and Mrs. Hensley report some improvements with foot and ankle positioning during ambulation short duration of approximately 6-8 weeks. They feel that active ankle dorsiflexion has been maintained. On examination, his primary voluntary left ankle activation is inversion with primarily neutral plantar flexion/dorsiflexion. Resting position is approximately 15 degrees of left ankle inversion and he can be brought to almost neutral towards eversion, with inversion to 30 degrees. No significant plantar flexor strength. Left lateral foot callus at the level of the fifth metatarsal, without evidence of infection or impending skin breakdown. Based on these findings, we discussed management options in detail. It would seem reasonable to proceed with repeat botulinum toxin injections targeting primarily the left tibialis posterior. He has previously found that with increased weakness of dorsiflexion, feels that his balance is not as good. The challenge is that he really does not have any significant active ankle eversion, but does have some left ankle inversion contracture either tendinous or periarticular. After discussion of the benefits, risks and alternatives, they wished to proceed with repeat botulinum toxin injections, advancing dosing to 100 units of incobotulinumtoxinA, targeting the left tibialis posterior. EMG was used to localize proper injection sites. We would plan on following up in around 6-8 weeks time by phone to define next steps. This could include repeat injections, versus consideration of reinstituting injections to the left tibialis anterior as well noting his comments above, versus potentially considering a foot and ankle surgical consultation for soft tissue and periarticular release to improve alignment. PMR Botulinum toxin procedure Performed by: Antoni Mars M.D. Authorized by: Rob Horan M.D. Care team members present 1. Tricia Meade R.N. PROCEDURE DETAILS Guidance used: palpation and EMG Needle gauge/size: 25 G 2 inch Negative aspiration used: yes Amount of dilution (preservative free normal saline): 2 cubic centimeters per 100 units Type of muscle: spastic and dystonic Dose and Site: Lower extremity: incobotulinumtoxinA L tibialis posterior- 100 units 3 site(s) including by retrotibial and transmembranous approach Total botulinum toxin lot # units wasted: [...] pause. PRE PROCEDURE DETAILS Procedure purpose: therapeutic Indications: Paraplegia Appropriate hand hygiene, gown, cap, mask, protective eyewear, sterile gloves, skin preparation, sterile drape, and strict aseptic technique were utilized as applicable for the procedure.: yes Skin preparation: alcohol SEDATION / ANESTHESIA Anesthesia method: none POST PROCEDURE DETAILS Procedure successful: yes Complications: no apparent complications COMMENTS Discussed postprocedure care and precautions. After botulinum toxin injection, avoid submerging theinjection site in a bath or pool for 24 hours. Showers are okay. Participation in normal every day activities and therapy is okay. There are no activity restrictions. Slight bruising is normal. The injection should begin to take effect within a few days and start to peak around a week following injection. This may cause the muscle injected to feel weak as the spasticity or dystonia decreases. This is expected. However, if you experience significant weakness in other non-injected muscles, trouble breathing or swallowing or new seizures, you should go to the emergency department. Anticipate followup in 13 weeks time with similar dosing and pattern, to be reassessed pending clinical evolution including follow-up as discussed above. Discussed reasons for urgent consultation. 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 ? 05/22/2023 ??9:32 AM [...] Mars M.D. PROCEDURE/MINOR SURGICAL ORDERABLES MMODAL NA * PMR Botulinum toxin procedure (02/13/2023 8:00 AM CDT) Narrative JANETTE - 02/13/2023 8:00 AM CDT Antoni Mars M.D. ? 02/13/2023 ??9:04 AM PMR Botulinum toxin procedure Performed by: Antoni Mars M.D. Authorized by: Rob Horan M.D. ?? Care team members present 1. Tricia Meade R.N. PROCEDURE DETAILS Guidance used: palpation and EMG ?? Needle gauge/size: 25 G 2 inch Negative aspiration used: yes ?? Amount of dilution (preservative free normal saline): 2 cubic centimeters per 100 units Type of muscle: spastic and dystonic Dose and ??Site: Lower extremity: incobotulinumtoxinA L tibialis posterior- 100 units 3 site(s) including by retrotibial and transmembranous approach Total botulinum toxin lot # units wasted: [...] pause. PRE PROCEDURE DETAILS Procedure purpose: therapeutic Indications: Paraplegia Appropriate hand hygiene, gown, cap, mask, protective eyewear, sterile gloves, skin preparation, sterile drape, and strict aseptic technique were utilized as applicable for the procedure.: yes ?? Skin preparation: alcohol SEDATION / ANESTHESIA Anesthesia method: none POST PROCEDURE DETAILS Procedure successful: yes ?? Complications: no apparent complications ?? COMMENTS ?? Discussed postprocedure care and precautions. ??After botulinum toxin injection, avoid submerging the injection site in a bath or pool for 24 hours. ??Showers are okay. ??Participation in normal every day activities and therapy is okay. ??There are no activity restrictions. ??Slight bruising is normal. ??The injection should begin to take effect within a few days and start to peak around a week following injection. ??This may cause the muscle injected to feel weak as the spasticity or dystonia decreases. ?? This is expected. ??However, if you experience significant weakness in other non-injected muscles, trouble breathing or swallowing or new seizures, you should go to the emergency department. ??Anticipate followup in 13 weeks time with similar dosing and pattern, to be reassessed pending clinical evolution including follow-up as discussed above. ??Discussed reasons for urgent consultation. Rob Horan M.D. 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 Given 02/13/2023 8:58 AM CDT 100 Units Other documented in this encounter Care Teams Big Data Hadoop Developer Relationship Specialty Start Date End Date Elsewhere, Pcp PCP - General Family Medicine 02/28/22 documented as of this encounter
--- OUTSIDE RECORDS SUMMARY | 2023-08-08 12:42 | XMS_ITS | Encounter Summary ---
Author Name Unknown Organization [facility] Address [address] [place] [address] Care Team Providers Care Chucking Lathe Operator Name Role Phone Elsewhere, Pcp Primary Care Provider Unavailabl e Encounter Details Date Type Department Care Team (Late st Contact Info) Description 01/25/2023 4:35 PM CDT Ancillary Procedure Department of Vascular [...] often do you attend chur ch or pentecostalism services? More than 4 times per year [...] Comments VASCULAR IMAGE EXAM Routine 01/25/2023 4 :34 PM CDT documented in this encounter Results * Ankle, Left-Vascular Image Exam (01/25/2023 4:34 PM CDT) 01/25/2023 4:32 PM CDT Narrative IIMS - 01/25/2023 4:34 PM CDT This order has been created and auto-finalized to support the import of images acquired without order. The clinical documentation to support these images can be found on the encounter that produced images. Provider Not In System IMG NON RAD IMAGI NG PROCEDURES IIMS NA documented in this encounter Visit Diagnoses Not on filedocumented in this encounter Care Teams Chucking Lathe Operator Relationship Specialty Start Date End Date Elsewhere, Pcp PCP - General Family Medicine 02/28/22 documented as of this encounter
--- OUTSIDE RECORDS SUMMARY | 2023-08-08 12:42 | XMS_ITS | Encounter Summary ---
Author Name Unknown Organization [facility] Address [address] [place] [id number] Care Team Providers Care Civil Manager Name Role Phone Elsewhere, Pcp Primary Care Provider Unavailabl e Reason for Referral * Outpatient (Routine) - Closed Specialty Diagnoses / Procedures Referred By Contact Referred To Contact Physical Medicine and Rehabilitation Meenakshi Villarreal APRN, CNS, M.S. [address] [place] [phone] [facility] Referral ID Status Reason Start Date Expiration Date Visits Re quested Visits Authorized [id number] Closed 03/14/2023 03/13/2026 1 1 Scheduling Instructions Please schedule at 11 am on Gen 5 Reason for Visit * Outpatient (Routine) - Closed Specialty Diagnoses / Procedures Referred By Contact Referred To Contact Physical Medicine and Rehabilitation Meenakshi Villarreal APRN, CNS, M.S. [address] [place] [phone] [facility] Referral ID Status Reason Start Date Expiration Date Visits Re quested Visits Authorized [id number] Closed 03/05/2022 03/04/2025 1 1 Encounter Details Date Type Department Care Team (Latest Contact Info) Description 03/14/2023 3:00 PM CDT Telemedicine Department of Physical Medicine and Rehabilitation in [place], [place] [address] [place] [phone] Meenakshi Villarreal APRN, MARY, M.S. [address] [place] [address] [place] [phone] Paraplegia (HCC) (Primary Dx); Abnormal Gait Non Orthopedic; Sensation Skin Altered; Neurogenic Bladder; Neurogenic Bowel Discharge Disposition: Home or Self Care Social [...] week 11/24/2022 [facility] often do you [facility] or hinduism services? More than 4 times per year 11/24/2022 Do you belong to any clubs o r organizations such as zoroastrianism groups, unions, fraternal or athletic groups, or [...] and heating? Not hard at all 11/24/2022 [facility] - Occupational Stress Questionnaire Answer Date [...] place to sleep or slept in a mcc (including now)? No 11/24/2022 Nutrition Answer Date [...] * Meenakshi Villarreal APRN, CNS, M.S. - 03/14/2023 3:00 PM CDT SUBJECTIVE REQUESTING PROVIDER Meenakshi Villarreal APRN, CNS, M.S. CHIEF COMPLAINT/REASON FOR VISIT Spinal cord dysfunction follow-up HISTORY OF PRESENT ILLNESS Mr. Peng Hensley a 68 y.o. 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 He is seen today via virtual visit. It has been a year since I have last seen him, he informs me that he is otherwise doing quite well. Over the last year he has obtained his carbon fiber AFOs, however did developa pressure injury which is now healed. He continues to work with [facility] [place], working with Scar for adaption. He feels that he continues to roll his ankle somewhat in the brace when ambulating, Scar does have a plan to alter his shoes to reduce this occurrence. As above he was seen by our colleagues in wound clinic secondary to a left lateral foot wound this has been healed and no further concern at this time. However he does have an reddened area just below his knee on theright secondary to the straps of his AFO, he does place a foam pad under the strap however continues to have redness. He underwent botulinum toxin procedure on February 13, [address] Mars. Mr. Hensley informs me that different muscle groups were targeted than previous injections, his left tibialis posterior was injected with 100 units at 3 different sites. He does feel that this injection seem to work quite well for him and would like to continue with the dose and injection site for his next round of Botox. 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 He continues to perform self catheterization 4 to 6 times a day dependingon his fluid intake. He was seen by our colleagues in urology and underwent urodynamic study, thereis no evidence of detrusor instability, bladder capacity is 474 cc, he has normal bladder compliance. Findings on his urodynamic study are consistent with an acontractile bladder. He continues to manage his neurogenic bowel with digital stimulation for evacuation on a daily basis. He does not have any difficulty with his technique. PHYSICAL EXAM Lower extremity muscle strength: He is able to show me limited muscle strength of his lower extremities, he does have normal extension at bilateral knees, slight left ankle flexion, otherwise no further motor strength in bilateral ankle groups. ASSESSMENT / PLAN #1 Paraplegia (HCC) He otherwise continues to do well staying busy. He is independent with driving as utilizes hand control in all of his vehicles including his RV bus. #2 Abnormal Gait Non Orthopedic #3 Sensation Skin Altered As above he is dealing with pressure over his right tibia just under the knee secondary to his AFO straps. I have not been able to assess his gait pattern [id number] to observe the ankle rolling motion indicated. He will be coming to [facility] in May, [facility] to see if he can join me regarding further bracing or adaption to a shoes to provide safe independent gait pattern. #4 Neurogenic Bladder He is done excellent job at managing his neurogenic bladder via self intermittent catheterization. He is aware that our team in urology would like to see him back yet this year. #5 Neurogenic Bowel He has no concerns regarding his neurogenic bowel program. As above I will see him mid May with [facility] for further assessmentof his gait pattern and accommodations. EDUCATION We discussed the diagnosis and treatment plan in detail. The patient expressed understanding of thecontent. No apparent learning barriers were identified; learning preferences include listening. I spent 30 minutes face to face and non-face to face caring for the patient today. Signed by: Meenakshi Villarreal APRN, CNS, M.S. 03/14/2023 3:30 PM CDT documented in this encounter Plan of Treatment Scheduled Referrals Name Type Priority Associated Diagnoses Order Schedule Physical Medicine and Rehabilitation office visit (clinic) Outpatient Referral Routine Expected: 05/22/2023, Expires: 06/13/2024 documented as of this encounter Visit Diagnoses Diagnosis Paraplegia (HCC)- Primary Abnormal Gait Non Orthopedic Sensation Skin Altered Neurogenic Bladder Neurogenic Bowel documented in this encounter Care Teams Civil Manager Relationship Specialty Start Date End Date Elsewhere, Pcp PCP - General Family Medicine 02/28/22 documented as of this encounter
--- OUTSIDE RECORDS SUMMARY | 2023-08-08 12:43 | XMS_ITS | Encounter Summary ---
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 [address] [place] [address] [facility] Referral ID Status Reason Start Date Expiration Date Visits Re quested Visits Authorized [id number] Closed 12/20/2022 01/04/2024 1 1 Reason for Visit * Reason Onset Date Comments Botox follow-up 12/19/2022 Encounter Details Date Type Department Care Team (Latest Contact Info) Description 12/19/2022 Clinical Communication Department of Physical Medicine and Rehabilitation in [place], [place] [address] [place] [phone] Rob Horan M.D. [address] [place] [phone] Botox follow-up Social History Tobacco Use Types Packs/Day Years [...] How often do you attend chur or voodoo services? More than 4 times per year 11/24/2022 Do you belong to any clubs o r organizations such as methodist groups, unions, fraternal or athletic groups, or [...] and heating? Not hard at all 11/24/2022 [facility] - Occupational [...] as of this encounter Miscellaneous Notes * Addendum Note - Lynne Faustin R.N., VANDANA - 12/20/2022 2:58 PM CDT Addended by: LYNNE FAUSTIN on: 12/20/2022 02:58 PM Modules accepted: Orders * Telephone Encounter - Lynne Faustin R.N., VANDANA - 12/19/2022 1:50 PM CDT SUBJECTIVE Botox f/u CHIEF COMPLAINT / REASON FOR CALL Botox follow-up Information Discussed Patient stated that his botox only lasted 6 weeks. His last injection was done 11/08/[address] Horanwith 40 units in Left tib. Patient mentioned that he noticed it yesterday that he cant get his footlowered into the ground and has been walking outside of his foot. He noticed it yesterday because he walked a lot that day. He has new shoes that he is trying on today which he thinks its helping. PLAN Will update Dr. Horan. Patient will call again if his foot is getting worse. Disposition/Recommendation: notified provider and awaiting recommendations Information/Education: patient/caller able to teach back Caller agreeable to plan of care: yes The following references were used: provider notes * Telephone Encounter - Aurora Agustin - 12/19/2022 12:49 PM CDT PROVIDER'S NAME: Dr. Horan CALLER'S NAME: Peng Hensley WHAT IS THE CALL REGARDING? Reason for the Call: Had Botox injection on 11/08/2022. Was advised to call as to outcome. Details/Desired Outcome: Noticed yesterday that foot was turning to its side so he has been walkingon the side of his foot. Knows that you changed site and dosage of Botox so he doesn't know if thisis due to that, Botox wearing off, etc. Authorization on File: Y Next Follow Up: NA Suggested Next Steps Listed in Clinical Note: NA Response preference: Phone call Additional Comments: Please call him. PATIENT OR CALLER'S PHONE NUMBER: [phone] Leonard documented in this encounter Plan of Treatment Not on file documented as of this encounter Results * PMR Botulinum toxin procedure (02/13/2023 8:00 AM CDT) Narrative MMODAL - 02/13/2023 8:00 AM CDT Antoni Mars M.D. ? 02/13/2023 ??9:04 AM PMR Botulinum toxin procedure Performed by: Antoni Mars M.D. Authorized by: Rob Horan M.D. ?? Care team members present 1. 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
--- OUTSIDE RECORDS SUMMARY | 2023-08-08 12:43 | XMS_ITS | Encounter Summary ---
Author Name Unknown Organization [facility] Address [address] [place] [address] Care Team Providers Care Cement Truck Driver Name Role Phone Elsewhere, Pcp Primary Care Provider Unavailabl e Encounter Details Date Type Department Care Team (Late st Contact Info) Description 12/12/2022 2:20 PM CDT Ancillary Procedure Department of Vascular [...] often do you attend chur ch or religion services? More than 4 times per year [...] and heating? Not hard at all 11/24/2022 [facility]at ional Health - Occupational [...] Associated Diagnosis Comments VASCULAR IMAGE EXAM Routine 12/12/2022 2 :20 PM CDT documented in this encounter Results * Foot, Left-Vascular Image Exam (12/12/2022 2:20 PM CDT) 12/12/2022 2:18 PM CDT Narrative IIMS - 12/12/2022 2:21 PM CDT This order has been created and auto-finalized to support the import of images acquired without order. The clinical documentation to support these images can be found on the encounter that produced images. Provider Not In System IMG NON RAD IMAGI NG PROCEDURES IIMS NA documented in this encounter Visit Diagnoses Not on filedocumented in this encounter Care Teams Cement Truck Driver Relationship Specialty Start Date End Date Elsewhere, Pcp PCP - General Family Medicine 02/28/22 documented as of this encounter
--- OUTSIDE RECORDS SUMMARY | 2023-08-08 12:43 | XMS_ITS | Encounter Summary ---
Author Name Unknown Organization [facility] Address [address] [place] [id number] Care Team Providers Care Mathematician Research Name Role Phone Elsewhere, Pcp Primary Care Provider Unavailabl e Reason for Referral * Outpatient (Routine) - Closed Specialty Diagnoses / Procedures Referred By Contac t Referred To Contact Vascular Medicine Diagnoses Pressure Injury (Ulcer) Of Other Site Unspecified Stage Rob Horan M.D. [address] [place] [phone] [facility] Referral ID Status Reason Start Date Expiration Date Visits Re quested Visits Authorized [id number] Closed 11/14/2022 11/14/2023 1 1 Encounter Details Date Type Department Care Team (Late st Contact Info) Description 11/14/2022 Orders Only Department of Physical Medicine and Rehabilitation in [place], [place] [address] [place] [phone] Rob Horan M.D. [address] [place] [phone] Pressure Injury (Ulcer) Of Other Site Unspecified Stage (Primary Dx) Social History Tobacco Use Types [...] How often do you attend chur or roman catholic services? More than 4 times per year 11/24/2022 Do you belong to any clubs o r organizations such as religion groups, unions, fraternal or athletic groups, or [...] and heating? Not hard at all 11/24/2022 [facility] [place] of Occupat ional Health - Occupational Stress [...] place to sleep or slept in a long term (including now)? No 11/24/2022 Nutrition Answer Date [...] as of this encounter Plan of Treatment Scheduled Referrals Name Type Priority Associated Diagnoses Orde r Schedule Vascular Medicine - Vascular wound care consult (clinic) Outpatient Referral Routine Pressure Injury (Ulcer) Of Other Site Unspecified Stage Expected: 11/14/2022 (Approximate), Expires: 02/15/2024 documented as of this encounter Visit Diagnoses Diagnosis Pressure Injury (Ulcer) Of Other Site Unspecified Stage- Primary documented in this encounter Care Teams Mathematician Research Relationship Specialty Start Date End Date Elsewhere, Pcp PCP - General Family Medicine 02/28/22 documented as of this encounter
--- OUTSIDE RECORDS SUMMARY | 2023-08-08 12:43 | XMS_ITS | Encounter Summary ---
Author Name Unknown Organization [facility] Address [address] [place] [address] Care Team Providers Care Equity Research Associate Name Role Phone Elsewhere, Pcp Primary Care Provider Unavailabl e Reason for Referral * Outpatient (Routine) - Closed Specialty Diagnoses / Procedures Referred By Contac t Referred To Contact Vascular Medicine Diagnoses Pressure Injury (Ulcer) Of Unspecified Site Unspecified Stage Paraplegia (HCC) David Hoover M.D. [address] [place] [phone] [facility] Referral ID Status Reason Start Date Expiration Date Visits Re quested Visits Authorized [id number] Closed 11/26/2022 11/25/2025 1 1 Encounter Details Date Type Department Care Team (Late st Contact Info) Description 11/26/2022 Orders Only Department of Vascular Medicine in [place], [place] [address] [place] [phone] David Hoover M.D. [address] [place] [phone] Pressure Injury (Ulcer) Of Unspecified Site Unspecified Stage (Primary Dx); Paraplegia (HCC) Social History Tobacco Use Types Packs/Day Years [...] week 11/24/2022 How often do you attend [facility] or yarsani services? More than 4 times per year 11/24/2022 Do you belong to any clubs o r organizations such as sabianism groups, unions, fraternal or athletic groups, or [...] and heating? Not hard at all 11/24/2022 [facility] [place] of Occupat ional Health - Occupational Stress [...] place to sleep or slept in a long-term (including now)? No 11/24/2022 Nutrition Answer Date [...] Associated Diagnoses Orde r Schedule Vascular Medicine nurse visit (clinic) Outpatient Referral Routine Pressure Injury (Ulcer) Of Unspecified Site Unspecified Stage Paraplegia (HCC) Expected: 12/10/2022 (Approximate), Expires: 02/27/2024 documented as of this encounter Visit Diagnoses Diagnosis Pressure Injury (Ulcer) Of Unspecified Site Unspecified Stage- Primary Paraplegia (HCC) documented in this encounter Care Teams Equity Research Associate Relationship Specialty Start Date End Date Elsewhere, Pcp PCP - General Family Medicine 02/28/22 documented as of this encounter
--- OUTSIDE RECORDS SUMMARY | 2023-08-08 12:43 | XMS_ITS | Encounter Summary ---
Author Name Unknown Organization [facility] Address [address] [place] [address] Care Team Providers Care Stock Supervisor Name Role Phone Elsewhere, Pcp Primary Care Provider Unavailabl e Encounter Details Date Type Department Care Team (Late st Contact Info) Description 01/10/2023 2:15 PM CDT Ancillary Procedure Department of Vascular [...] often do you attend chur ch or hindu services? More than 4 times per year 11/24/2022 Do you belong to any clubs o r organizations such as oriental orthodox groups, unions, fraternal or athletic groups, or [...] and heating? Not hard at all 11/24/2022 [facility] of Occupat ional Health - Occupational Stress [...] Associated Diagnosis Comments VASCULAR IMAGE EXAM Routine 01/10/2023 2 :15 PM CDT documented in this encounter Results * Foot, Left-Vascular Image Exam (01/10/2023 2:15 PM CDT) 01/10/2023 2:12 PM CDT Narrative IIMS - 01/10/2023 2:15 PM CDT This order has been created and auto-finalized to support the import of images acquired without order. The clinical documentation to support these images can be found on the encounter that produced images. Provider Not In System IMG NON RAD IMAGI NG PROCEDURES IIMS NA documented in this encounter Visit Diagnoses Not on filedocumented in this encounter Care Teams Stock Supervisor Relationship Specialty Start Date End Date Elsewhere, Pcp PCP - General Family Medicine 02/28/22 documented as of this encounter
--- OUTSIDE RECORDS SUMMARY | 2023-08-08 12:43 | XMS_ITS | Encounter Summary ---
Author Name Unknown Organization [facility] Address [address] [place] [address] Care Team Providers Care Skirt Clipper Name Role Phone Elsewhere, Pcp Primary Care Provider Unavailabl e Encounter Details Date Type Department Care Team (Late st Contact Info) Description 09/12/2018 [facility] [address] [place] [address] Erma Morejon M.D. [address] [place] [phone] Social History Tobacco Use Types Packs/Day Years Used Date Smoking Tobacco: Never Assessed Sex and Gender Information Value Date Recorded Sex Assigned at Male 03/05/2022 8:00 AM CDT Gender Identity Male 12/11/2020 6:50 PM CDT Sexual Orientation Straight 12/11/2020 6: 50 PM CDT documented as of this encounter Plan of Treatment Not on file documented as of this encounter Visit Diagnoses Not on filedocumented in this encounter Care Teams Skirt Clipper Relationship Specialty Start Date End Date Elsewhere, Pcp PCP - General Family Medicine 02/28/22 documented as of this encounter
--- OUTSIDE RECORDS SUMMARY | 2023-08-08 12:43 | XMS_ITS | Encounter Summary ---
Author Name Unknown Organization [facility] Address [address] [place] [address] Care Team Providers Care Account Receivable Clerk Name Role Phone Elsewhere, Pcp Primary Care Provider Unavailabl e Encounter Details Date Type Department Care Team (Late st Contact Info) Description 11/26/2022 9:05 AM CDT Ancillary Procedure Department of Vascular Social [...] often do you attend chur ch or anabaptism services? More than 4 times per year 11/24/2022 Do you belong to any clubs o r organizations such as latter-day groups, unions, fraternal or athletic groups, or [...] and heating? Not hard at all 11/24/2022 [facility] of Occupat ional Health - Occupational [...] Associated Diagnosis Comments VASCULAR IMAGE EXAM Routine 11/26/2022 9 :03 AM CDT documented in this encounter Results * Foot, Left-Vascular Image Exam (11/26/2022 9:03 AM CDT) 11/26/2022 9:01 AM CDT Narrative IIMS - 11/26/2022 9:03 AM CDT This order has been created and auto-finalized to support the import of images acquired without order. The clinical documentation to support these images can be found on the encounter that produced images. Provider Not In System IMG NON RAD IMAGI NG PROCEDURES IIMS NA documented in this encounter Visit Diagnoses Not on filedocumented in this encounter Care Teams Account Receivable Clerk Relationship Specialty Start Date End Date Elsewhere, Pcp PCP - General Family Medicine 02/28/22 documented as of this encounter
--- OUTSIDE RECORDS SUMMARY | 2023-08-08 12:43 | XMS_ITS | Encounter Summary ---
Author Name Unknown Organization [facility] Address [address] [place] [address] Care Team Providers Care Braid Folder Name Role Phone Elsewhere, Pcp Primary Care Provider Unavailabl e Reason for Referral * Outpatient (Routine) - Closed Specialty Diagnoses / Procedures Referred By Contac t Referred To Contact Vascular Medicine Diagnoses Pressure Injury (Ulcer) Of Other Site Unspecified Stage David Hoover M.D. [address] [place] [phone] [facility] Referral ID Status Reason Start Date Expiration Date Visits Re quested Visits Authorized [id number] Closed 11/26/2022 11/25/2025 1 1 Reason for Visit * Outpatient (Routine) - Closed Specialty Diagnoses / Procedures Referred By Contac t Referred To Contact Vascular Medicine Diagnoses Pressure Injury (Ulcer) Of Other Site Unspecified Stage Rob Horan M.D. [address] [place] [phone] [facility] Referral ID Status Reason Start Date Expiration Date Visits Re quested Visits Authorized [id number] Closed 11/14/2022 11/14/2023 1 1 Encounter Details Date Type Department Care Team (Latest Contact Info) Description 11/26/2022 8:15 AM CDT Comprehensive Visit Department of Vascular Medicine in [place], [place] [address] [place] [phone] David Hoover M.D. [address] [place] [phone] Pressure Injury (Ulcer) Of Other Site Unspecified [...] How often do you attend chur or yazidi services? More than 4 times per year 11/24/2022 Do you belong to any clubs o r organizations such as anabaptist groups, unions, fraternal or athletic groups, or [...] and heating? Not hard at all 11/24/2022 [facility] of Occupat ional [facility] - Occupational Stress Questionnaire Answer [...] place to sleep or slept in a half-way (including now)? No 11/24/2022 Nutrition Answer Date [...] this encounter Patient Instructions * Patient Instructions* Lidia Cortez, RGenoN. - 11/26/2022 8:15 AM CDT Wound Location: Left lateral foot. Wash hands Remove old dressing Gently cleanse ulcer base with rough gauze and normal saline (in a gently circular motion) Cut ONE piece of Nu-gauze and moisten with normal saline (strip out excess moisture) Lightly tuck the Nu-gauze into the wound base. Cover with soft gauze Secure with cover roll stretch tape Change dressing two times per day. Additional Instructions: General Verbal consent obtained to [...] through 14 - You may wear shoes manager multimedia in your house only. Beyond day 14 - If no problems have developed, you may begin wearing them outside the house. DME wound cares supplies: Patient states he has all supplies needed. No DME order written today 11/26/22. If you have any wound care questions or concerns please contact the Vascular Center at [phone]. If you need to cancel, reschedule, or schedule a wound care appointment please call [phone]. Provider Signature David Hoover M.D. documented in this encounter Consult Notes * David Hoover M.D. - 11/26/2022 8:15 AM CDT REFERRAL SOURCE Rob Horan M.D. [address] [place] [phone] SUBJECTIVE CHIEF COMPLAINT / REASON FOR VISIT Neuropathic left lateral foot wound. HISTORY OF PRESENT ILLNESS Mr. Hensley is a 67 y.o. male that I am seeing today who is referred by Rob Horan M.D. for the above. 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 He is able toambulate with an AFO brace on the left lower extremity. The AFO brace and modifications has been performed through [facility] or now [facility]. Patient wears the bilateral AFO braces with all ambulationand never walks barefoot or in socks. There is a modification in the braces on the left three months ago. He has noticed in area of callus formation at the left lateral foot but not in the exact region of previous neuropathic pressure wounds at this portion of the foot. He was last seen by us in July [facility] in [facility] for left lateral foot neuropathic ulceration. This was able to heal without too much difficulty. He reports of an upcoming appointment to make further adjustments in thecurrent braces. The current wound has been in place for 4+ weeks with occasional clear fluid discharge. There has been no associated pain, erythema, or purulent discharge. The following portions of the patient's history were reviewed and updated as appropriate: allergies, current medications, family history, medical history, social history, surgical history, psychiatric history, problem list, labs, diagnostics tests.. I reviewed the pertinent clinical notes in the electronic health record. REVIEW OF SYSTEMS 14 systems reviewed. Pertinent positives and pertinent negatives are documented in the history of present illness. Medications Prior to Admission medications Medication Sig Start Date End Date Taking? Authorizing Provider aspirin [address] tablet Take 81 mg by mouth every other day. 02/12/19 Provider, Historical atorvastatin (LIPITOR) 20 mg tablet Take 20 mg by mouth at bedtime. 01/11/22 Provider, Historical UNABLE TO FIND Custom AFO for left foot 05/13/19 Provider, Historical OBJECTIVE VITALS There were no vitals taken for this visit. PHYSICAL EXAMINATION There is no height or weight on file to calculate BMI. General exam: Pleasant and well-developed male in no acute distress. HEENT: Unremarkable. Extremities: Small crescent ulceration with minimal undermining in association with callus at the left lateral foot. This is not complicated by erythema, deep tissue exposure, or purulent discharge. Vascular: Pedal pulses are intact. Lymph: No apparent lymphadenopathy. Skin: No apparent rash, ecchymosis, or petechiae. Psych: Alert and oriented with normal mood and affect. PROCEDURAL PAUSE Procedural pause conducted to verify: correct patient identity, procedure to be performed and as applicable, correct side and site, correct patient position, and availability of implants, special equipment or special requirements. Procedure note: After consent was obtained from the patient and topical lidocaine for topical anesthesia was applied, the wound was gently debrided. This was well tolerated and without complication. DIAGNOSTIC REVIEW All labs and diagnostic studies were reviewed. ASSESSMENT / PLAN #1 Pressure Injury (Ulcer) Of Other Site Unspecified Stage Considerations for further evaluation and management were reviewed and discussed in detail with thepatient. Anatomical and pathophysiologic considerations were also reviewed. 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 This is scheduled to undergo further adjustment in the brace in the near future. The patient does report of progress being made in him being fitted in a larger/wider shoe. The current ulceration does not appear to be complicated by secondary infection. Antibiotic therapydoes not appear to be necessary at this time. I anticipate this area to be able to heal quite nicely with continued wound management. For now, given the slight undermining, I have recommended application twice daily quarter-inch Nu Gauze motion with saline dressing changes. The rationale for this approach was reviewed. This will be conducted over the next couple weeks until he is able to return to perhaps adjust the wound dressing regimen to perhaps a collagen based dressing. Continuation with appropriate padding to the lateral aspect of the foot and brace his encouraged. Additional wound care management [facility] and [facility] Detailed written instructions were reviewed and provided. The above has been discussed and reviewed in detail with the patient. He expresses understanding and willingness to proceed. All questions were answered. He is welcome to call or return sooner if necessary with any further questions or concerns. Signs or symptoms of worsening development were reviewed. He appeared to be pleased with information as is outlined above. PATIENT EDUCATION Ready to learn, no apparent learning barriers were identified; learning preferences including listening. Explained diagnosis and treatment plan; patient expressed understanding of the content. David Hoover M.D. documented in this encounter Plan of Treatment Scheduled Referrals Name Type Priority Associated Diagnoses Orde r Schedule Vascular Medicine office visit (clinic) Wound; Local; Neuropathic/diabet ic Outpatient Referral Routine Pressure Injury (Ulcer) Of Other Site Unspecified Stage Expected: 12/27/2022 (Approximate), Expires: 02/27/2024 documented as of this encounter Visit Diagnoses Diagnosis Pressure Injury (Ulcer) Of Other Site Unspecified Stage- Primary documented in this encounter Care Teams Braid Folder Relationship Specialty Start Date End Date Elsewhere, Pcp PCP - General Family Medicine 02/28/22 documented as of this encounter
--- OUTSIDE RECORDS SUMMARY | 2023-08-08 12:43 | XMS_ITS | Encounter Summary ---
Author Name Unknown Organization [facility] Address [address] [place] [address] Care Team Providers Care Home Care Administrator Name Role Phone Elsewhere, Pcp Primary Care Provider Unavailabl e Reason for Visit * Outpatient (Routine) - Closed Specialty Diagnoses / Procedures Referred By Yaron t Referred To Contact Vascular Medicine Lupe Angel APRN, C.N.P., D.N.P. [address] [place] [phone] [facility] Referral ID Status Reason Start Date Expiration Date Visits Re quested Visits Authorized [id number] Closed 12/26/2022 12/25/2025 1 1 Encounter Details Date Type Department Care Team (Latest Contact Info) Description 01/10/2023 1:15 PM CDT Clinical Support Department of Vascular Medicine in [place], [place] [address] [place] [phone] Lupe Angel APRN, C.N.P., D.N.P. [address] [place] [phone] Lesli Castro R.N. Pressure Injury (Ulcer) Of Left Ankle Stage 2 (HCC) (Primary Dx); Pressure Injury (Ulcer) Of Unspecified Site Unspecified Stage; Pressure Injury (Ulcer) Of Other Site Unspecified Stage; Pressure Injury (Ulcer) Of Other Site Stage 2 (HCC) Discharge Disposition: Home or [...] often do you attend chur ch or mandaen services? More than 4 times per year 11/24/2022 Do you belong to any clubs o r organizations such as samaritan groups, unions, fraternal or athletic groups, or [...] and heating? Not hard at all 11/24/2022 [facility] of Occupat ional Health - Occupational Stress [...] place to sleep or slept in a longterm (including now)? No 11/24/2022 Nutrition Answer Date [...] this encounter Patient Instructions * Patient Instructions* Lesli Castro R.N. - 01/10/2023 1:15 PM CDT Follow-up with your AFO adjustment Take your shoes off throughout the day to let your feet air out. Change your socks if they are wet. Apply AmLactin cream to callused areas. Moisturize your heels and feet with unscented moisturizer. Wound Location: Left lateral foot. Wash hands Remove old dressing Gently cleanse ulcer base with rough gauze and normal saline (in a gently circular motion) Cut mepilex lite to size of wound. Sticky side on the wound. Secure with cover roll stretch tape Change dressing every 3-5 days or after showering. Additional Instructions: General Verbal consent obtained to [...] through 14 - You may wear shoes time study technician in your house only. Beyond day 14 - If no problems have developed, you may begin wearing them outside the house. If you have any wound care questions or concerns please contact the Vascular Center at [phone]. If you need to cancel, reschedule, or schedule a wound care appointment please call [phone]. Provider Signature Lesli Castro R.N. documented in this encounter Progress Notes * Lesli Castro R.N. - 01/10/2023 1:15 PM CDT CHIEF COMPLAINT/REASON FOR VISIT: RN to assess and debride. Peng Hensley was seen at the [facility] vascular wound healing clinic. REFERRAL: Lupe Angel APRN, C.N.P., D.N.P. HISTORY OF PRESENT ILLNESS: Peng Hensley is a pleasant 67 y.o.male presenting today for follow up of his left lateral foot wound.His medical history is significant for spinal cord infarct in November 2006 with lower extremity sensoryloss and contractures and hyperlipidemia. Due to his sensory loss/contractures, he wears AFO bilaterally to mobilize. Peng Hensley was last seen by Lupe Angel APRN, C.N.P., D.N.P. on 12/26/2022. Since that time, he has been using medihoney to the wound base daily. Peng Hensley has no new issues or concerns with theirwound at this time. SOCIAL: Dressing changes are done by his . The patient is not having any problems with the dressings. PHYSICAL EXAM: General: Alert and oriented; no acute distress. Pleasant and conversant. Extremities: Warm, well perfused, no edema. Gait: Arrived in a wheelchair. Wearing AFO braces . ASSESSMENT/PLAN Patient complains of 0 /10 pain no lidocaine was applied. There was callus present over the wound base that was sharply debrided with a iris scissors, forceps, and scalpel. The wound base is epithelium. Consulted with Chapis Gomez APRN, DAVEY. Changed dressing to mepilex lite changing every 3-5 days or after showering. Patient also has rash on plantar foot possibly from dryness or sweat. He was encouraged to remove his shoes throughout the day to allow his feet to dry out. He was also encouraged to change socks if they are wet. He will moisturize feet with unscented moisturizer and apply AmLactin to areas of callus. He has a return provider appointment scheduled for 01/25/2023, with Olayinka Milton APRN, C.N.P., BrandonN.P. Peng Hensley was instructed to contact the wound care center with any questions or concerns in the interim. Prior to proceeding with today's debridement a procedural pause was conducted to verify: correct patient identity, procedure to be performed and as applicable, correct side and site, correct patient position, and availability of implants, special equipment or special requirements, and allergies reviewed. documented in this encounter Plan of Treatment Not on file documented as of this encounter Visit Diagnoses Diagnosis Pressure Injury (Ulcer) Of Left Ankle Stage 2 (HCC)- Primary Pressure Injury (Ulcer) Of Unspecified Site Unspecified Stage Pressure Injury (Ulcer) Of Other Site Unspecified Stage Pressure Injury (Ulcer) Of Other Site Stage 2 (HCC) documented in this encounter Care Teams Home Care Administrator Relationship Specialty Start Date End Date Elsewhere, Pcp PCP - General Family Medicine 02/28/22 documented as of this encounter
--- OUTSIDE RECORDS SUMMARY | 2023-08-08 12:43 | XMS_ITS | Encounter Summary ---
Author Name Unknown Organization [facility] Address [address] [place] [address] Care Team Providers Care Toe Former Stitchdowns Name Role Phone Elsewhere, Pcp Primary Care Provider Unavailabl e Encounter Details Date Type Department Care Team (Late st Contact Info) Description 12/26/2022 10:25 AM CDT Ancillary Procedure Department of Vascular [...] often do you attend chur ch or tenriism services? More than 4 times per year [...] and heating? Not hard at all 11/24/2022 [facility] - [...] place to sleep or slept in a usp (including now)? No 11/24/2022 Nutrition Answer Date [...] Associated Diagnosis Comments VASCULAR IMAGE EXAM Routine 12/26/2022 1 0:25 AM CDT documented in this encounter Results * Foot, Left-Vascular Image Exam (12/26/2022 10:25 AM CDT) 12/26/2022 10:2 4 AM CDT Narrative IIMS - 12/26/2022 10:26 AM CDT This order has been created and auto-finalized to support the import of images acquired without order. The clinical documentation to support these images can be found on the encounter that produced images. Provider Not In System IMG NON RAD IMAGI NG PROCEDURES IIMS NA documented in this encounter Visit Diagnoses Not on filedocumented in this encounter Care Teams Toe Former Stitchdowns Relationship Specialty Start Date End Date Elsewhere, Pcp PCP - General Family Medicine 02/28/22 documented as of this encounter
--- OUTSIDE RECORDS SUMMARY | 2023-08-08 12:43 | XMS_ITS | Encounter Summary ---
Author Name Unknown Organization [facility] Address [address] [place] [address] Care Team Providers Care Cullet Washer Name Role Phone Elsewhere, Pcp Primary Care Provider Unavailabl e Encounter Details Date Type Department Care Team (Late st Contact Info) Description 11/26/2022 8:10 AM CDT Ancillary Procedure Department of Vascular [...] often do you attend chur ch or orthodoxy services? More than 4 times per year 11/24/2022 Do you belong to any clubs o r organizations such as roman catholic groups, unions, fraternal or athletic groups, or [...] and heating? Not hard at all 11/24/2022 [facility] - [...] place to sleep or slept in a correction (including now)? No 11/24/2022 Nutrition Answer Date [...] Diagnosis Comments VASCULAR IMAGE EXAM Routine 11/26/2022 8 :10 AM CDT documented in this encounter Results * Foot, Left-Vascular Image Exam (11/26/2022 8:10 AM CDT) 11/26/2022 8:06 AM CDT Narrative IIMS - 11/26/2022 8:10 AM CDT This order has been created and auto-finalized to support the import of images acquired without order. The clinical documentation to support these images can be found on the encounter that produced images. Provider Not In System IMG NON RAD IMAGI NG PROCEDURES IIMS NA documented in this encounter Visit Diagnoses Not on filedocumented in this encounter Care Teams Cullet Washer Relationship Specialty Start Date End Date Elsewhere, Pcp PCP - General Family Medicine 02/28/22 documented as of this encounter
--- OUTSIDE RECORDS SUMMARY | 2023-08-08 12:43 | XMS_ITS | Encounter Summary ---
Author Name Unknown Organization [facility] Address [address] [place] [id number] Care Team Providers Care Skip Load Driver Name Role Phone Elsewhere, Pcp Primary Care Provider Unavailabl e Reason for Visit * Outpatient (Routine) - Closed Specialty Diagnoses / Procedures Referred By Yaron t Referred To Contact Vascular Medicine Diagnoses Pressure Injury (Ulcer) Of Unspecified Site Unspecified Stage Paraplegia (HCC) David Hoover M.D. [address] [place] [phone] [facility] Referral ID Status Reason Start Date Expiration Date Visits Re quested Visits Authorized [id number] Closed 11/26/2022 11/25/2025 1 1 Encounter Details Date Type Department Care Team (Latest Contact Info) Description 12/12/2022 1:15 PM CDT Clinical Support Department of Vascular Medicine in [place], [place] [address] [place] [phone] David Hoover M.D. [address] [place] [phone] Tania Reinoso R.N. [address] [place] [phone] Pressure Injury (Ulcer) Of Unspecified Site Unspecified Stage; Paraplegia (HCC) Social History Tobacco Use Types [...] any clubs o r organizations such as episcopalian groups, unions, fraternal or athletic groups, or [...] and heating? Not hard at all 11/24/2022 [facility] - Occupational Stress [...] this encounter Patient Instructions * Patient Instructions* Tania Reinoso R.N. - 12/12/2022 1:15 PM CDT Wound Location: Left lateral foot. Wash hands Remove old dressing Gently cleanse ulcer base with rough gauze and normal saline (in a gently circular motion) Cut a piece of Alginate Lightly tuck the Alginate into the wound base. Cover with soft gauze Secure with cover roll stretch tape Change dressing one time per day. Additional Instructions: General Verbal consent [...] 14 - You may wear shoes time clerk in your house only. Beyond day 14 - If no problems have developed, you may begin wearing them outside the house. DME wound cares supplies: Patient states he has all supplies needed. No DME order written today 11/26/22. If you have any wound care questions or concerns please contact the Vascular Center at [phone]. If you need to cancel, reschedule, or schedule a wound care appointment please call [phone]. Provider Signature Cristin Prabhakar Reinoso documented in this encounter Progress Notes * Tania Reinoso R.N. - 12/12/2022 1:15 PM CDT CHIEF COMPLAINT/REASON FOR VISIT: RN to assess and debride. Peng Hensley was seen at the [facility]. REFERRAL: David Hoover M.D. HISTORY OF PRESENT ILLNESS: Peng Hensley is a pleasant 67 y.o.male presenting today for follow up of his right lateral foot wound. 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 Peng Hensley was last seen by Dr. David Hoover on 11/26/2022. Since that time, he has been using saline moistened Nu gauze tucked into the wound base. He was only able to use this dressing for about three days, then he reports the wound callused over and he went back to using Iodosorb to the wound daily. Peng Hensley has no new issues or concerns with their wound at this time. SOCIAL: Dressing changes are done by self/wound. The patient is not having any problems with the dressings. PHYSICAL EXAM: General: Alert and oriented; no acute distress. Pleasant and conversant. Extremities: Warm, well perfused, no edema. Gait: Arrived in a wheelchair. Wearing AFO braces . Skin/Wound: See LDA flowsheets Lines/Drains/Airways Wound Duration Wound 11/26/22 Left lateral foot 16 days ASSESSMENT/PLAN Patient complains of 1/10 pain no lidocaine was applied. There was callus present in the wound basethat was sharply debrided with a forceps and scalpel. The wound base is granular. I reviewed my findings with Peng Hensley. Armida Benson PA-C was consulted today to discuss different options for packing this fast callusing wound. We will try a piece of Alginate gently tucked into the wound to wick moisture. This will be covered with soft gauze and cover roll stretch tape or roll gauze. We willmake a return apointmant in two weeks with one of our wound care providers to assess improvement. Patient will continue this at home. He has a return provider appointment scheduled for 12/26/2022, with Lupe Angel APRN, Maranda.N.Leonor, Fredy.N.P.. Peng Ayden was instructed to contact the wound care [...] Of Unspecified Site Unspecified Stage Paraplegia (HCC) documented in this encounter Care Teams Skip Load Driver Relationship Specialty Start Date End Date Elsewhere, Pcp PCP - General Family Medicine 02/28/22 documented as of this encounter
--- OUTSIDE RECORDS SUMMARY | 2023-08-08 12:43 | XMS_ITS | Encounter Summary ---
Author Name Unknown Organization [facility] Address [address] [place] [address] Care Team Providers Care Electrical And Radio Aircraft Mechanic Name Role Phone Elsewhere, Pcp Primary Care Provider Unavailabl e Reason for Referral * Outpatient (Routine) - Closed Specialty Diagnoses / Procedures Referred By Contac t Referred To Contact Vascular Medicine Lupe Angel APRN, C.N.P., D.N.P. [address] [place] [phone] [facility] Referral ID Status Reason Start Date Expiration Date Visits Re quested Visits Authorized [id number] Closed 12/26/2022 12/25/2025 1 1 * Outpatient (Routine) - Closed Specialty Diagnoses / Procedures Referred By Contac t Referred To Contact Vascular Medicine Lupe Angel APRN, C.N.P., D.N.P. [address] [place] [phone] [facility] Referral ID Status Reason Start Date Expiration Date Visits Re quested Visits Authorized [id number] Closed 12/26/2022 12/25/2025 1 1 Reason for Visit * Outpatient (Routine) - Closed Specialty Diagnoses / Procedures Referred By Contac t Referred To Contact Vascular Medicine Diagnoses Pressure Injury (Ulcer) Of Other Site Unspecified Stage David Hoover M.D. [address] [place] [phone] [facility] Referral ID Status Reason Start Date Expiration Date Visits Re quested Visits Authorized [id number] Closed 11/26/2022 11/25/2025 1 1 Encounter Details Date Type Department Care Team (Late st Contact Info) Description 12/26/2022 10:15 AM CDT Office Visit Department of Vascular Medicine in [place], [place] [address] [place] [phone] Lupe Angel, AVTAR, C.N.P., D.N.P. [address] [place] [phone] Pressure Injury (Ulcer) Of Left Ankle Stage 2 (HCC) (Primary Dx); Paraplegia (HCC); Callus [place] Foot Discharge Disposition: Home or Self Care Social [...] often do you attend chur ch or confucianism services? More than 4 times per year 11/24/2022 Do you belong to any clubs o r organizations such as gnosticism groups, unions, fraternal or athletic groups, or [...] and heating? Not hard at all 11/24/2022 [facility] - Occupational [...] place to sleep or slept in a snf (including now)? No 11/24/2022 Nutrition Answer Date [...] PM CDT documented as of this encounter Last Filed Vital Signs Vital Sign Reading Time Taken Comments Blood Pressure - - Pulse - - Temperature - - Respiratory Rate - - Oxygen Saturation - - Inhaled Oxygen Concentration - - Weight 79.4 kg (175 lb 0.7 oz) 12/26/2022 10:00 AM CDT Height 177 cm (5' 9.69) 12/26/2022 10:00 AM CDT Body Mass Index 25.34 12/26/2022 10:00 AM CDT documented in this encounter Patient Instructions * Patient Instructions* Yady Lezama R.N. - 12/26/2022 10:15 AM CDT Follow-up with your AFO adjustment Wound Location: Left lateral foot. Wash hands Remove old dressing Gently cleanse ulcer base with rough gauze and normal saline (in a gently circular motion) Apply the honey to the wound base. Cover with xeroform then soft gauze Secure with cover roll stretch [...] through 14 - You may wear shoes inspector timers in your house only. Beyond day 14 - If no problems have developed, you may begin wearing them outside the house. If you have any wound care questions or concerns please contact the Vascular Center at [phone]. If you need to cancel, reschedule, or schedule a wound care appointment please call [phone]. Provider Signature Lupe Angel APRN, C.N.P., D.N.P. documented in this encounter Progress Notes * Lupe Angel, AVTAR, C.N.P., D.N.P. - 12/26/2022 10:15 AM CDT SUBJECTIVE CHIEF COMPLAINT / REASON FOR [...] on having modifications to his brace done. Since his last evaluation, they have been applying maneuver Honey. He has not been able to have modifications made to his AFO. Currently, he denies fever, chills, or night sweats; or any increase in redness, swelling, pain, ordrainage. The following portions of the patient's history were reviewed and updated as appropriate: allergies, current medications, family history, past medical history, social history, surgical history, problem list, labs, diagnostics tests. I reviewed the pertinent clinical notes in the electronic health record. OBJECTIVE VITALS Ht 177 cm Wt 79.4 kg BMI 25.34 kg/m?? PHYSICAL EXAMINATION General: Patient is a healthy-appearing male in no cardiopulmonary distress. Vessels: Left-Dorsalis Pedis: 3+ Posterior Tibial: 3+ Extremities: No edema noted in lower extremities bilaterally. No upper extremity edema noted. Briskcapillary refill. Gait: Steady and stable. Mental: Pleasant, appropriate, and cooperative. Alert and oriented x3 with normal affect. Skin: Warm, dry and pink with good turgor. No rashes or ecchymosis seen. Wound Review After obtaining informed consent, a topical lidocaine solution of 2% was applied. After which sharpdebridement was performed using a curette, forceps, iris scissors, 15 blade scalpel. Location/Description: Left lateral hindfoot ulcer. Significant callus was reduced from wound perimeter. Wound bed is granular. Measurements: 0.1 X 0.3 X 0.1 cm. ASSESSMENT / PLAN #1 Pressure Injury (Ulcer) Of Left Ankle Stage 2 (HCC) #2 Paraplegia (HCC) #3 Callus [place] Foot I discussed my assessment findings and plan of care with Mr. Peng Hensley and his who was also present at today's visit. Since his last evaluation, his pressure/neuropathic ulcer has decreased in size. However, he has significant callus buildup. Today, a small amount of saline moistened Promogran followed by Xeroform was applied. At home, would recommend continued use of medicinal honey followed by Xeroform in an effort to keep the wound bed clean but also soften callus. He was encouraged to continue working on modifications to his AFO to minimize pressure to this areaas risk for recurrent ulceration will be high. Strategies to promote wound healing include: wound care and off-loading It was a pleasure to see Mr. Hensley. Patient verbalized understanding of all the recommendations and was in agreement with the plan. In the interm if he has any additional questions or concerns he should contact the [facility]. Follow-up as listed: Wound nurse visits: 2 weeks Wound Provider visit: 1 month Please see the After Visit Summary and/or Patient Instructions outlined in the encounter for details regarding wound care instructions. Lupe Angel APRN, C.N.P., D.N.P. INFORMED CONSENT: Discussed the risks, benefits, alternatives, and the necessity of other members of the healthcare team participating in the procedure. All questions answered and consent given. Please see flow sheets and photographs for additional information. PATIENT EDUCATION Ready to learn, no apparent learning barriers were identified; learning preferences include listening. Explained diagnosis and treatment plan; patient expressed understanding of the content. BILLING Total time spent with patient: 20 minutes. Time spent in counselin minutes. Billing does not reflect debridement time. documented in this encounter Plan of Treatment Scheduled Referrals Name Type Priority Associated Diagnoses Orde r Schedule Vascular Medicine nurse visit (clinic) Outpatient Referral Routine Expected: 01/09/2023 (Approximate), Expires: 03/28/2024 Vascular Medicine office visit (clinic) Wound; Regional; Neuropathic/diabet ic Outpatient Referral Routine Expected: 01/25/2023 (Approximate), Expires: 03/28/2024 documented as of this encounter Visit Diagnoses Diagnosis Pressure Injury (Ulcer) Of Left Ankle Stage 2 (HCC)- Primary Paraplegia (HCC) Callus [place] Foot documented in this encounter Administered Medications Inactive Administered Medications - up to 3 most recent administrations Medication Order MAR Action Action Date Dose Rate Site lidocaine 2 % gel 1 Application (XYLOCAINE) 1 Application, topical, As needed, mild pain or score 1-3 of 10, wound debridement, Starting on Sat12/26/22 at 1014, For 4 hours, Saturate gauze dressing and place onto wound base(s). Assess patient's pain level after 5-10 minutes. If pain greater than 4, continue to lidocaine 4%. Given 12/26/2022 10:14 AM CDT 1 Application documented in this encounter Care Teams Electrical And Radio Aircraft Mechanic Relationship Specialty Start Date End Date Elsewhere, Pcp PCP - General Family Medicine 02/28/22 documented as of this encounter
--- OUTSIDE RECORDS SUMMARY | 2023-08-08 12:43 | XMS_ITS | Encounter Summary ---
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 [address] [place] [phone] [facility] Referral ID Status Reason Start Date Expiration Date Visits Re quested Visits Authorized [id number] Closed 07/26/2022 11/01/2023 4 4 Encounter Details Date Type Department Care Team (Latest Contact Info) Description 11/08/2022 1:00 PM CDT Procedure visit Department of Physical Medicine and Rehabilitation in [place], [place] [address] [place] [address] Rob Horan M.D. 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 More than three times a week 03/05/2022 How often do you get togethe r with friends or relatives? Twice a week 03/05/2022 How often do you attend [facility] or congregation services? More than 4 times per year 03/05/2022 Do you belong to any clubs o r organizations such as orthodox groups, unions, fraternal or athletic groups, or school groups? Yes 03/05/2022 How often do you attend meet ings of the clubs or organizations you belong to? More than 4 times per year 03/05/2022 Are you , , di vorced, , never , or living with a partner? 03/05/2022 AUDIT-C Answer Date Recorded Q1: How often do you have a drink containing alc ohol? Monthly or less 03/05/2022 Q2: How many drinks containi ng alcohol do you have on a typical day when you are drinking? 1 or 2 03/05/2022 Q3: How often do you have si x or more drinks on one occasion? Never 03/05/2022 Overall Financial Resource Strain (CARDIA) Answe r Date Recorded How hard is it for you to pa y for the very basics like food, housing, medical care, and heating? Not hard at all 12/11/2020 [facility] of Occupat ional Health - Occupational Stress Questionnaire Answer Date Recorded Do you feel stress - tense, restless, nervous, or anxious, or unable to sleep at night because your mind is troubled all the time - these days? Not at all 12/11/2020 Exercise Vital Sign Answer Date Recorde d On average, how many days pe r week do you engage in moderate to strenuous exercise (like a brisk walk)? 0 days 03/05/2022 On average, how many minutes do you engage in exercise at this level? 0 min 03/05/2022 Hunger Vital Sign Answer Date Recorded Within the past 12 months, y ou worried that your food would run out before you got the money to buy more. Never true 12/12/19 21 Within the past 12 months, t he food you bought just didn't last and you didn't have money to get more. Never true 12/11/2020 PRAPARE - Transportation Answer Date Re corded In the past 12 months, has l ack of transportation kept you from medical appointments or from getting medications? No 02/06 In the past 12 months, has l ack of transportation kept you from meetings, work, or from getting things needed for daily living? No 03/05/2022 Housing Stability Vital Sign Answer Adam e Recorded In the last 12 months, was t here a time when you were not able to pay the mortgage or rent on time? No 03/05/2022 In the last 12 months, how many places have you lived? 1 03/05/2022 In the last 12 months, was t here a time when you did not have a steady place to sleep or slept in a senior living (including now)? No 03/05/2022 Nutrition Answer Date Recorded Nutrition: EVOO Fat Source No 03/10 On average, how many serving s of fruits and vegetables do you eat per day (serving size is equal to 1 cup or approximately the size of a tennis ball)? 0-1 03/10/2020 Dental Answer Date Recorded Dental: Regular Dentist Yes 07/08/19 Employment Answer Date Recorded Employment status Retired 03/05/2022 Education Answer Date Recorded What is the [...] as of this encounter Procedure Notes * Rob Horan M.D. 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 Hensley is a delightful 67 y.o. 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 He ambulates with bilateral AFOs. The first chemodenervation injections done at [place] were performed on 04/25/[address] Segal, and Mr. Hensley reported good benefit with improved walking secondary to decreased ankle inversion and landing less on the outer aspect of his foot which previously has led to callus formation. He has been getting these injections for three or four years up in the [facility] and of note, the tibialis anterior and tibialis posterior have been injected. Prior to starting the injections he did have some active ankle dorsiflexion but some time during the period of chemodenervation treatments he lost that ability which is not very surprising given that the tibialis anterior was targeted. At the last visit (07/26/2022) he denied any kind of spasm or pain or dystonic ankle dorsiflexion that would suggest he needs chemo denervation in the tibialis anterior and so we only injected the tibialis posterior. He found that just as effective as the previous injections, and was able to walk with his foot flat in his AFO. Over the past 2 weeks the effect has worn off and he is landing on the outer side of his foot while ambulation. He does have a large callus over the 5th metatarsal and also a second area of pressure on the plantar aspect of the distal 5th metatarsal region that apparently have been half-way problems for him but he hasn't been seen by Nicole Epperson in [facility] for almost 2 years now. Given that he still has the ability to actively invert, we elected to try decreasing the dose todayso that we do not cause him to lose the ability to actively invert as he has lost the ability to actively dorsiflex. We used 40 units of Xeomin today and will see how that works when we follow up in 3 months. I will also reach out to his wound care providers about follow up there. PMR Botulinum toxin procedure Performed by: Rob Horan M.D. Authorized by: Rob Horan M.D. Care team members present 1. Rob Horan M.D. 2. Praful Fall M.D. 3. Tricia Meade RGenoNGeno PROCEDURE DETAILS Guidance used: EMG Needle gauge/size: 25 G 2 inch Negative aspiration used: yes Amount of dilution (preservative free normal saline): 1 cc Type of muscle: spastic Dose and Site: Incobotulinum toxin type A (Xeomin) Left tibialis posterior Total botulinum toxin lot # units wasted: 10 Total botulinum toxin lot # units injected: 40 CONSENT Consent obtained: written (Risks, benefits and alternatives were discussed and a written Informed Consent was obtained. Please see Informed Consent form for further details.) PRE PROCEDURE DETAILS Procedure purpose: therapeutic Indications: Spasticity Skin preparation: alcohol POST PROCEDURE DETAILS Procedure successful: yes Complications: no apparent complications ATTESTATION STATEMENT A resident or fellow participated in the procedure, and the [employer] retailer sales consultant was present for the entire procedure. 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 ? 11/14/2022 12:36 PM PMR Botulinum toxin procedure Performed by: Rob Horan M.D. Authorized by: Rob Horan M.D. ?? Care team members present 1. Rob Horan M.D. 2. Praful Fall M.D. 3. Tricia Meade R.N. PROCEDURE DETAILS Guidance used: EMG ?? Needle gauge/size: 25 G 2 inch Negative aspiration used: yes ?? Amount of dilution (preservative free normal saline): 1 cc Type of muscle: spastic Dose and ??Site: Incobotulinum toxin type A (Xeomin) Left tibialis posterior Total botulinum toxin lot # units wasted: 10 Total botulinum toxin lot # units injected: 40 CONSENT Consent obtained: written (Risks, benefits and alternatives were discussed and a written Informed Consent was obtained. Please see Informed Consent form for further details.) PRE PROCEDURE DETAILS Procedure purpose: therapeutic Indications: Spasticity Skin preparation: alcohol POST PROCEDURE DETAILS Procedure successful: yes ?? Complications: no apparent complications ?? ATTESTATION STATEMENT A resident or fellow participated in the procedure, and the at[employer] retailer sales consultant was present for the entire procedure. Rob Horan M.D. 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 Given 11/08/2022 1:28 PM CDT 40 Units O ther documented in this encounter Care Teams Card Cutter Helper Relationship Specialty Start Date End Date Elsewhere, Pcp PCP - General Family Medicine 02/28/22 documented as of this encounter
--- OUTSIDE RECORDS SUMMARY | 2023-08-08 12:43 | XMS_ITS | Encounter Summary ---
Author Name Unknown Organization [facility] Address [address] [place] [address] Care Team Providers Care Information Security Officer Name Role Phone Elsewhere, Pcp Primary Care Provider Unavailabl e Encounter Details Date Type Department Care Team (Late st Contact Info) Description 12/26/2022 10:05 AM CDT Ancillary Procedure Department of Vascular [...] often do you attend chur ch or sikhism services? More than 4 times per year 11/24/2022 Do you belong to any clubs o r organizations such as judaism groups, unions, fraternal or athletic groups, or [...] and heating? Not hard at all 11/24/2022 [facility] of Occupat ional Health - Occupational [...] Comments VASCULAR IMAGE EXAM Routine 12/26/2022 1 0:05 AM CDT documented in this encounter Results * Foot, Left-Vascular Image Exam (12/26/2022 10:05 AM CDT) 12/26/2022 10:0 2 AM CDT Narrative IIMS - 12/26/2022 10:06 AM CDT This order has been created and auto-finalized to support the import of images acquired without order. The clinical documentation to support these images can be found on the encounter that produced images. Provider Not In System IMG NON RAD IMAGI NG PROCEDURES IIMS NA documented in this encounter Visit Diagnoses Not on filedocumented in this encounter Care Teams Information Security Officer Relationship Specialty Start Date End Date Elsewhere, Pcp PCP - General Family Medicine 02/28/22 documented as of this encounter
--- OUTSIDE RECORDS SUMMARY | 2023-08-08 12:43 | XMS_ITS | Encounter Summary ---
Author Name Unknown Organization [facility] Address [address] [place] [address] Care Team Providers Care Pump Machine Operator Name Role Phone Elsewhere, Pcp Primary Care Provider Unavailabl e Encounter Details Date Type Department Care Team (Late st Contact Info) Description 11/26/2022 8:15 AM CDT Ancillary Procedure Department of Vascular [...] often do you attend chur ch or jew services? More than 4 times per year 11/24/2022 Do you belong to any clubs o r organizations such as jehovah's witness groups, unions, fraternal or athletic groups, or [...] and heating? Not hard at all 11/24/2022 [facility] of Occupat ional Health - [...] place to sleep or slept in a assisted (including now)? No 11/24/2022 Nutrition Answer Date [...] CDT documented in this encounter Results * Legs-Vascular Image Exam (11/26/2022 8:10 AM CDT) 11/26/2022 [...] on filedocumented in this encounter Care Teams Pump Machine Operator Relationship Specialty Start Date End Date Elsewhere, Pcp PCP - General Family Medicine 02/28/22 documented as of this encounter
--- OUTSIDE RECORDS SUMMARY | 2023-08-08 12:44 | XMS_ITS | Encounter Summary ---
Author Name Unknown Organization [facility] Address [address] [place] [address] Care Team Providers Care Sheet Heater Name Role Phone Elsewhere, Pcp Primary Care Provider Unavailabl e Reason for Referral * Outpatient (Routine) - Closed Specialty Diagnoses / Procedures Referred By Contact Referred To Contact Physical Medicine and Rehabilitation Diagnoses Stroke (HCC) Macario Villa M.D. [address] [place] [address] [facility] Referral ID Status Reason Start Date Expiration Date Visits Re quested Visits Authorized [id number] Closed 08/26/2018 08/26/2019 1 1 ET MAKING MACHINE OPERATOR Encounter Details Date Type Department Care Team (Late st Contact Info) Description 08/26/2018 [facility] [address] [place] [address] Macario Villa M.D. [address] [place] [address] Stroke (HCC) (Primary Dx) Social History Tobacco Use Types Packs/Day Years Used Date Smoking Tobacco: Never Assessed Sex and Gender Information Value Date Recorded Sex Assigned at Male 03/05/2022 8:00 AM CDT Gender Identity Male 12/11/2020 6:50 PM CDT Sexual Orientation Straight 12/11/2020 6: 50 PM CDT documented as of this encounter Plan of Treatment Scheduled Referrals Name Type Priority Associated Diagnoses Orde r Schedule Neurology Referral Outpatient Referral Routine Stroke (HCC) Expected: 08/26/2018 (Approximate), Expires: 08/26/2021 documented as of this encounter Visit Diagnoses Diagnosis Stroke (HCC)- Primary documented in this encounter Care Teams Sheet Heater Relationship Specialty Start Date End Date Elsewhere, Pcp PCP - General Family Medicine 02/28/22 documented as of this encounter
== END 2023-08-08 08:29 | disposition home or self-care (01) ==
LOC: NFLDREF 12:40
PROVIDERS: PCP Internal Medicine; Referring Provider Internal Medicine; Visit Provider Internal Medicine
DX: E78.5 Hyperlipidemia, unspecified (principal); Z12.5 Encounter for screening for malignant neoplasm of prostate; Z13.228 Encounter for screening for other metabolic disorders
CPT/HCPCS: 80053; 80061; G0103

== ENCOUNTER 2024-03-31 12:40 | Outpatient (CLI) | payer MEDICARE, SELFPAY ==
--- OUTSIDE RECORDS SUMMARY | 2024-03-31 12:43 | XMS_ITS | Clinical Summary ---
Author Organization [facility] Address [place], [place] [address] Care Team Providers Care Forester Silviculture Name Role Phone Macario Villa MD Primary [...] Custom AFO for left foot 1 Each 05/13/2019 Active atorvastatin (LIPITOR) 20 mg tablet Take 1 Tablet (20 mg) by mouth once daily. 01/01/2022 Active Active Problems Problem Noted Date [...] Health Maintenance Due Date Last Done Comments Depression screening for age 12+ 1967 Hepatitis [...] 02/26/2020 0 02/25/2019 Tetanus booster 02/09/2021 02/09/2011 COVID-19 vaccine series ( - 2023- season) 2024 Influenza for age 65+ 03/08/2024 Tdap Completed 02/09/2011 Procedures Procedure Name Priority Date/Time Associated Diagnosis Comments CHOLESTEROL,TOTAL Routine 11/03/2003 8:1 7 AM CDT from Last 3 Months or Most Recently Relevant to Health Maintenance Results * (ABNORMAL) CHOLESTEROL,TOTAL (11/03/2003 8:17 AM CDT) CHOLESTEROL,TOT AL 275(H) 110 - 199 mg/dL 11/03/2003 8:17 AM CDT Narrative 12/19/2003 10:31 AM CDT Ordered by an unspecified provider. Other Clinical Staff CHEMISTRY from Last 3 Months or Most Recently Relevant to Health Maintenance Care Teams Forester Silviculture Relationship Specialty Start Date End Date Macario Villa MD [address] [place] [address] PCP - General Emergency Medicine 02/22/16
--- OUTSIDE RECORDS SUMMARY | 2024-03-31 12:44 | XMS_ITS | Encounter Summary ---
Author Organization [facility] Address [address] [place] [address] Care Team Providers Care Precision Agriculture Specialist Name Role Phone Elsewhere, Pcp Primary Care Provider Unavailabl e Encounter Details Date Type Department Care Team (Latest Contact Info) Description 02/19/2024 Clinical Communication Department of Physical Medicine and Rehabilitation in [place], [place] [address] [place] [phone] Meenakshi Villarreal, AVTAR, INTERIOR SURFACE INSULATION WORKER, M.S. [address] [place] [phone] Social History Tobacco Use Types Packs/Day Years Used Date Smoking Tobacco: Former Cigarettes 0 07/12/1967 - 12/02/2006 Smokeless Tobacco: Current [...] often do you attend chur ch or spiritism services? More than 4 times per year [...] and heating? Not hard at all 11/24/2022 [facility] of Occupat ional Health - [...] as of this encounter Plan of Treatment Upcoming Encounters Date Type Department Care Team (Latest Contact Info) Description 04/06/2024 10:00 AM CDT Comprehensive Visit Department of Vascular Medicine in [place], [place] [address] [place] [phone] Rk Bahena M.D. [address] [place] [address] Discharge Disposition: Home or Self Care 05/19/2024 1:00 PM HULL INSPECTOR Telemedicine Department of Physical Medicine and Rehabilitation in [place], [place] [address] [place] [phone] Meenakshi Villarreal APRN, INTERIOR SURFACE INSULATION WORKER, M.S. [address] [place] [phone] Discharge Disposition: Home or Self Care 05/25/2024 9:00 AM HULL INSPECTOR Appointment Department of Laboratory Medicine and Pathology, [facility] in [place], [place] [address] [place] [phone] Yuliana Flanagan P.A.-C. [address] [place] [phone] 05/25/2024 9:30 AM HULL INSPECTOR Appointment Department of Radiology, [facility] in [place], [place] [address] [place] [address] Yuliana Flanagan, P.A.-C. [address] [place] [phone] 05/25/2024 3:00 PM HULL INSPECTOR Office Visit Department of Urology in [place], [place] [address] [place] [phone] Yuliana Flanagan P.A.-C. [address] [place] [phone] documented as of this encounter Visit Diagnoses Diagnosis Abnormal Gait Non Orthopedic- Primary Paraplegia (HCC) Spasticity documented in this encounter Care Teams Precision Agriculture Specialist Relationship Specialty Start Date End Date Elsewhere, Pcp PCP - General Family Medicine 02/28/22 documented as of this encounter
--- OUTSIDE RECORDS SUMMARY | 2024-03-31 12:44 | XMS_ITS | Clinical Summary ---
Author Organization [facility] Address [address] [place] [address] Care Team Providers Care Membership Correspondent Name Role Phone Elsewhere, Pcp Primary Care Provider Unavailabl e Source Comments Patient records contain information from all sites at [facility]. For routine questions regarding patient records, call [phone] during business hours, M-F 8:00 AM - 5:00 PM Central Time. Record requests for emergency care only can be directed to [phone] at any time.[facility] Allergies Active Allergy Reactions Criticality Noted Date Comments Ragweed Other (see comments) 11/24/2014 Sneezing, itchy eyes Medications Medication Sig Dispensed Refills Start Date End Date Status aspirin [address] tablet Take 81 mg by mouth every other day. 02/12/2019 Active atorvastatin (LIPITOR) 20 mg tablet Take 20 mg by mouth at bedtime. 01/11/2022 Active UNABLE TO FIND Custom AFO for left foot 05/13/2019 Active Hospital, Clinic, or Other Facility [...] Encounters Date Type Department Care Team Description 03/16/2024 Ancillary Procedure Department of Vascular Surgery 03/16/2024 [facility] [address] [place] [address] Karime Garduno, AVTAR, C.N.P., D.N.P. 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 Referral Requested 02/19/2024 Clinical Communication Department of Physical Medicine and Rehabilitation in [address] [phone] Meenakshi Villarreal APRN, MARY, M.S. from Last 3 Months Family History Medical [...] week 11/24/2022 How often do you attend [facility] or yazidism services? More than 4 times per year [...] 12/26/2022 10:00 AM CDT Plan of Treatment Upcoming Encounters Date Type Department Care Team (Latest Contact Info) Description 04/06/2024 10:00 AM CDT Comprehensive Visit Department of Vascular Medicine in [place], [place] 200 [place] [address] Rk Bahena M.D. 200 [place] [address] Discharge Disposition: Home or Self Care 05/19/2024 1:00 PM DRY CHAIN OFFBEARER Telemedicine Department of Physical Medicine and Rehabilitation in [place], [place] [address] [place] [phone] Meenakshi Villarreal APRN, MANAGER CABLE, M.S. [address] [place] [phone] Discharge Disposition: Home or Self Care 05/25/2024 9:00 AM DRY CHAIN OFFBEARER Appointment Department of Laboratory Medicine and Pathology, [facility] in [place], [place] [address] [place] [phone] Yuliana Flanagan, P.A.-C. [address] [place] [phone] 05/25/2024 9:30 AM DRY CHAIN OFFBEARER Appointment Department of Radiology, [facility] in [place], [place] [address] [place] [phone] Yuliana Flanagan, P.A.-C. [address] [place] [phone] 05/25/2024 3:00 PM DRY CHAIN OFFBEARER Office Visit Department of Urology in [place], [place] [address] [place] [phone] Yuliana Flanagan, P.A.-C. [address] [place] [phone] Health Maintenance Due Date Last Done Comments CT Colonography 1955 Cologuard 1955 Colonoscopy 1955 Colorectal Cancer Screening 1955 FIT 1955 Hepatitis C Screening 1955 Zoster Vaccines (1 of 2) 2005 Pneumococcal vaccine (65+ ye ars) (1 of 1 - PCV) 01/30/2020 DTaP,Tdap,and Td Vaccines (2 - Td or Tdap) 02/09/2021 02/09/2011 Depression Screening (Annual PHQ-2) 07/08/2023 Fall Risk Screen (Annual) 07/08/2023 COVID-19 Vaccine ( season) 2024 Influenza Vaccine (#1) 2024 Fasting Glucose for Diabetes Screening 05/03/2026, 04/25/2022 Abdominal Aortic Aneurysm (AAA) Screen Completed Procedures Procedure Name Priority Date/Time Associated Diagnosis Comments VASCULAR SURGERY IMAGE EXAM Routine 03/16/2024 12:00 AM CDT BASIC METABOLIC PANEL, S/P Routine 05/03/2023 2:09 PM CDT Neurogenic Bladder CT ABDOMEN PELVIS WITHOUT IV CONTRAST RAD - Routine (most inpatients and all outpatients) 12/05/2018 2:52 PM CDT Neurogenic Bladder from Last 3 Months or Most Recently Relevant to Health Maintenance Results * Unspecified-Vascular Surgery Image Exam (03/16/2024 12:00 AM CDT) Narrative IIMS - 03/16/2024 12:43 PM CDT This order has been created and auto-finalized to support the import of images acquired without order. The clinical documentation to support these images can be found on the encounter that produced images. Provider Not In System IMG NON RAD IMAGI NG PROCEDURES [facility] NA * (ABNORMAL) Basic Metabolic Panel (05/03/2023 2:09 [...] CDT Yuliana Flanagan P.A.-C. LAB BLOOD ADD-ON [facility] [address] [place] [address], [facility] [address] [place] [address] * CT Abdomen Pelvis without IV Contrast (12/05/2018 2:52 PM CDT) Anatomical Region Laterality Modality Abdomen, Pelvis, Abdominal R ST LOS, Abdominal ARZ LOS, Abdominal FLA LOS N/A Computed Tomography 12/05/2018 3:13 PM CDT Impressions 12/05/2018 3:27 PM CDT IMPRESSION: ??Bilateral nonobstructing calyceal tip renal stones. No bladder stones. No evidence of urinary tract dilatation. Diffuse thickening of the urinary bladder. Bladder contains air. Narrative 12/05/2018 3:27 PM CDT EXAM: ??CT ABDOMEN PELVIS WITHOUT IV CONTRAST COMPARISON: ?? None ?? FINDINGS: ??There are 2 tiny approximately 2 mm calyceal tip stones in the right kidney (series 3, image 1:30 and 175). There is an approximate 2 mm stone in the lower pole of the left kidney (series 3, image 162). No evidence of stones in the ureters or urinary bladder. No hydronephrosis or ureterectasis. Diffuse thickening of the urinary bladder wall. Air in the urinary bladder. Prostatic calcifications. Scattered aortoiliac and splenic artery vascular calcification. No aneurysm formation. Unenhanced CT of the liver, gallbladder, spleen, pancreas, and both adrenals negative. Prominent 9 mm paraesophageal lymph node (series 3, image 57). Stool throughout the nondilated colon. Thoracolumbar curve. Degenerative changes lumbar spine and both SI joints. Procedure Note Narda Rome M.D. - 12/05/2018 EXAM: CT ABDOMEN PELVIS WITHOUT IV CONTRAST COMPARISON: None FINDINGS: There are 2 tiny approximately 2 mm calyceal tip stones in theright kidney (series 3, image 1:30 and 175). There is an approximate 2 mm stonein the lower pole of the left kidney (series 3, image 162). No evidence of stonesin the ureters or urinary bladder. No hydronephrosis or ureterectasis.Diffuse thickening of the urinary bladder wall. Air in the urinary bladder. Prostatic calcifications. Scattered aortoiliac and splenic arteryvascular calcification. No aneurysm formation. Unenhanced CT of the liver,gallbladder, spleen, pancreas, and both adrenals negative. Prominent 9 mmparaesophageal lymph node (series 3, image 57). Stool throughout the nondilated colon. Thoracolumbar curve. Degenerative changes lumbar spine and both SIjoints. IMPRESSION: Bilateral nonobstructing calyceal tip renal stones. Nobladder stones. No evidence of urinary tract dilatation. Diffuse thickening ofthe urinary bladder. Bladder contains air. José Miguel MERINO CT PROCEDURES from Last 3 Months or Most Recently Relevant to Health Maintenance Care Teams Membership Correspondent Relationship Specialty Start Date End Date Elsewhere, Pcp PCP - General Family Medicine 02/28/22
--- OUTSIDE RECORDS SUMMARY | 2024-03-31 12:44 | XMS_ITS | Encounter Summary ---
Author Organization [facility] Address [address] [place] [address] Care Team Providers Care Drier Operator Head Name Role Phone Elsewhere, Pcp Primary Care Provider Unavailabl e Encounter Details Date Type Department Care Team (Late st Contact Info) Description 03/16/2024 Ancillary Procedure Department of Vascular Surgery Social History Tobacco Use Types Packs/Day Years [...] week 11/24/2022 How often do you attend [facility] or holiness services? More than 4 times per year 11/24/2022 Do you belong to any clubs o r organizations such as uatsdin groups, unions, fraternal or athletic groups, or [...] and heating? Not hard at all 11/24/2022 [facility] of Occupat ional Health - [...] place to sleep or slept in a penitentiary (including now)? No 11/24/2022 Nutrition Answer Date [...] Comprehensive Visit Department of Vascular Medicine in [place], [place] 200 [place] [phone] Rk Bahena M.D. [address] [place] [phone] Discharge Disposition: Home or Self Care 05/19/2024 1:00 PM SOCIAL WELFARE CLERK Telemedicine Department of Physical Medicine and Rehabilitation in [place], [place] [address] [place] [phone] Meenakshi Villarreal APRN, SALES REPRESENTATIVE [employer], M.S. [address] [place] [phone] Discharge Disposition: Home or Self Care 05/25/2024 9:00 AM SOCIAL WELFARE CLERK Appointment Department of Laboratory Medicine and Pathology, [facility], in [place], [place] [address] [place] [phone] Yuliana Flanagan P.A.-C. [address] [place] [phone] 05/25/2024 9:30 AM SOCIAL WELFARE CLERK Appointment Department of Radiology, [facility] in [place], [place] [address] [place] [phone] Yuliana Flanagan P.A.-C. [address] [place] [phone] 05/25/2024 3:00 PM SOCIAL WELFARE CLERK Office Visit Department of Urology in [place], [place] [address] [place] [phone] Yuliana Flanagan P.A.-C. [address] [place] [phone] documented as of this encounter Procedures Procedure Name Priority Date/Time Associated Diagnosis Comments VASCULAR SURGERY IMAGE EXAM Routine 03/16/2024 12:00 AM CDT documented in this encounter Results * Unspecified-Vascular Surgery Image Exam (03/16/2024 [...] on filedocumented in this encounter Care Teams Drier Operator Head Relationship Specialty Start Date End Date Elsewhere, Pcp PCP - General Family Medicine 02/28/22 documented as of this encounter
--- OUTSIDE RECORDS SUMMARY | 2024-03-31 12:44 | XMS_ITS | Referral Summary ---
Author Organization [facility] Address [address] [place] [address] Care Team Providers Care Manager Safe Name Role Phone Elsewhere, Pcp Primary Care Provider Unavailabl e Source Comments Patient records contain information from all sites at [facility]. For routine questions regarding patient records, call [phone] during business hours, M-F 8:00 AM - 5:00 PM Central Time. Record requests for emergency care only can be directed to [phone] at any time.[facility] Encounters Date Type Department Care Team Description 03/16/2024 Ancillary Procedure Department of Vascular Surgery 03/16/[address] [address] Karime Garduno APRN, C.N.P., D.N.P. Non-Pressure Chronic Ulcer Of Other Part Of Left Foot With Unspecified Severity (HCC) (Primary Dx) 03/12/2024 Clinical Communication Department of Physical Medicine and Rehabilitation in [address] [phone] Meenakshi Villarreal APRN, MARY, M.S. Referral Requested 02/19/2024 Clinical Communication Department of Physical Medicine and Rehabilitation in [address] [phone] Meenakshi Villarreal APRN, MARY, M.S. from Last 3 Months Allergies Active Allergy [...] How often do you attend chur or christian services? More than 4 times per year [...] and heating? Not hard at all 11/24/2022 [facility] of Occupat ional Health - Occupational [...] Comprehensive Visit Department of Vascular Medicine in [place], [place] 200 [place] [address] Rk Bahena M.D. 200 [place] [phone] Discharge Disposition: Home or Self Care 05/19/2024 1:00 PM DOPE SPRAYER Telemedicine Department of Physical Medicine and Rehabilitation in [place], [place] [address] [place] [phone] Meenakshi Villarreal APRN, MAINFRAME SYSTEMS ENGINEER, M.S. [address] [place] [phone] Discharge Disposition: Home or Self Care 05/25/2024 9:00 AM DOPE SPRAYER Appointment Department of Laboratory Medicine and Pathology, [facility] in [place], [place] [address] [place] [phone] Yuliana Flanagan P.A.-C. [address] [place] [phone] 05/25/2024 9:30 AM DOPE SPRAYER Appointment Department of Radiology, [facility] in [place], [place] [address] [place] [phone] Yuliana Flanagan P.A.-C. [address] [place] [phone] 05/25/2024 3:00 PM DOPE SPRAYER Office Visit Department of Urology in [place], [place] [address] [place] [phone] Yuliana Flanagan, P.A.-C. [address] [place] [phone] Procedures Procedure Name Priority Date/Time Associated Diagnosis [...] Image Exam (03/16/2024 12:00 AM CDT) Narrative II - 03/16/2024 12:43 PM CDT This order has been created and auto-finalized to support the import of images acquired without order. The clinical documentation to support these images can be found on the encounter that produced images. Provider Not In System IMG NON RAD IMAGI NG PROCEDURES Performing Organization Address City/[facility]/ZIP Co de Phone Number [facility] NA * (ABNORMAL) Basic Metabolic Panel (05/03/2023 [...] CDT Yuliana Flanagan P.A.-C. LAB BLOOD ADD-ON [address] [address] DTL [facility] [address] [place] [address] * CT Abdomen Pelvis without IV Contrast [...] urinary bladder. Bladder contains air. José Miguel Chi M.D. IMJordan CT PROCEDURES from Last 3 Months or Most Recently Relevant to Health Maintenance Care Teams Manager Safe Relationship Specialty Start Date End Date Elsewhere, Pcp PCP - General Family Medicine 02/28/22
--- OUTSIDE RECORDS SUMMARY | 2024-03-31 12:44 | XMS_ITS | Encounter Summary ---
Author Organization [facility] Address [address] [place] [address] Care Team Providers Care Software Quality Assurance Specialist Name Role Phone Elsewhere, Pcp Primary Care Provider Unavailabl e Reason for Referral * Outpatient (Routine) - Closed Specialty Diagnoses / Procedures Referred By Contact Referred To Contact Physical Medicine and Rehabilitation Diagnoses Stroke (HCC) Macario Villa M.D. [address] [place] [address] [facility] Referral ID Status Reason Start Date Expiration Date Visits Re quested Visits Authorized [id number] Closed 08/26/2018 08/26/2019 1 1 DRILL PRESS OPERATOR Encounter Details Date Type Department Care Team (Late st Contact Info) Description 08/26/2018 [facility] [address] [place] [address] Macario Villa M.D. [address] [place] [phone] Stroke (HCC) (Primary Dx) Social History Tobacco [...] Comprehensive Visit Department of Vascular Medicine in [place], [place] [address] [place] [phone] Rk Bahena M.D. [address] [place] [phone] Discharge Disposition: Home or Self Care 05/19/2024 1:00 PM GANG DRILL PRESS OPERATOR Telemedicine Department of Physical Medicine and Rehabilitation in [place], [place] [address] [place] [phone] Meenakshi Villarreal APRN, STATION BAGGAGE PORTER, M.S. [address] [place] [phone] Discharge Disposition: Home or Self Care 05/25/2024 9:00 AM GANG DRILL PRESS OPERATOR Appointment Department of Laboratory Medicine and Pathology, [facility] in [place], [place] [address] [place] [phone] Yuliana Flanagan, P.A.-C. [address] [place] [phone] 05/25/2024 9:30 AM GANG DRILL PRESS OPERATOR Appointment Department of Radiology, [facility] in [place], [place] [address] [place] [phone] Yuliana Flanagan, P.A.-C. [address] [place] [phone] 05/25/2024 3:00 PM GANG DRILL PRESS OPERATOR Office Visit Department of Urology in [place], [place] [address] [place] [phone] Yuliana Flanagan, P.A.-C. [address] [place] [phone] Scheduled Referrals Name Type Priority Associated Diagnoses Orde r Schedule Neurology Referral Outpatient Referral Routine Stroke (HCC) Expected: 08/26/2018 (Approximate), Expires: 08/26/2021 documented as of this encounter Visit Diagnoses Diagnosis Stroke (HCC)- Primary documented in this encounter Care Teams Software Quality Assurance Specialist Relationship Specialty Start Date End Date Elsewhere, Pcp PCP - General Family Medicine 02/28/22 documented as of this encounter
--- OUTSIDE RECORDS SUMMARY | 2024-03-31 12:44 | XMS_ITS ---
Author Organization [facility] Address [address] [place] [address] Care Team Providers Care Marketing Communications Manager Name Role Phone Unavailable Unavailable Unavailable Surgery Details Not on file Complications Check Surgery Details section. Procedure Estimated Blood Loss Check Surgery Details section. Procedure Findings Check Surgery Details section. Procedure Specimens Taken Check Surgery Details section.
--- OUTSIDE RECORDS SUMMARY | 2024-03-31 12:44 | XMS_ITS | Encounter Summary ---
Author Organization [facility] Address [address] [place] [address] Care Team Providers Care Cullet Crusher Name Role Phone Elsewhere, Pcp Primary Care Provider Unavailabl e Encounter Details Date Type Department Care Team (Late st Contact Info) Description 09/12/2018 [facility] [address] [place] [address] Erma Morejon M.D. [address] [place] [address] Social History Tobacco Use Types Packs/Day Years [...] Comprehensive Visit Department of Vascular Medicine in [place], [place] [address] [place] [address] Rk Bahena M.D. 200 [place] [phone] Discharge Disposition: Home or Self Care 05/19/2024 1:00 PM PIPE LAYER HELPER Telemedicine Department of Physical Medicine and Rehabilitation in [place], [place] [address] [place] [phone] Meenakshi Villarreal APRN, REPAIR WEAVER, M.S. [address] [place] [phone] Discharge Disposition: Home or Self Care 05/25/2024 9:00 AM PIPE LAYER HELPER Appointment Department of Laboratory Medicine and Pathology, [facility] in [place], [place] [address] [place] [phone] Yuliana Flanagan PYimi-CGeno [address] [place] [phone] 05/25/2024 9:30 AM PIPE LAYER HELPER Appointment Department of Radiology, [facility] in [place], [place] [address] [place] [address] Yuliana Flanagan P.A.-CGeno [address] [place] [phone] 05/25/2024 3:00 PM PIPE LAYER HELPER Office Visit Department of Urology in [place], [place] [address] [place] [phone] Yuliana Flanagan, PGenoA.-CGeno [address] [place] [phone] documented as of this encounter Visit Diagnoses Not on filedocumented in this encounter Care Teams Cullet Crusher Relationship Specialty Start Date End Date Elsewhere, Pcp PCP - General Family Medicine 02/28/22 documented as of this encounter
--- OUTSIDE RECORDS SUMMARY | 2024-03-31 12:44 | XMS_ITS | Encounter Summary ---
Author Organization [facility] Address [address] [place] [address] Care Team Providers Care Retail Business Manager Name Role Phone Elsewhere, Pcp Primary Care Provider Unavailabl e Reason for Referral * Outpatient (Routine) - Authorized Specialty Diagnoses / Procedures Referred By Yaron rodriguez Referred To Contact Vascular Medicine Diagnoses Paraplegia (HCC) Abnormal Gait Non Orthopedic Pressure Injury (Ulcer) Of Unspecified Site Unspecified Stage Meenakshi Villarreal APRN, CNS, M.S. [address] [place] [phone] [facility] Referral ID Status Reason Start Date Expiration Date V isits Requested Visits Authorized [id number] Authorized 03/12/2024 09/11/2025 1 1 Reason for Visit * Reason Onset Date Comments Referral Requested 03/12/2024 Encounter Details Date Type Department Care Team (Latest Contact Info) Description 03/12/2024 Clinical Communication Department of Physical Medicine and Rehabilitation in [place], [place] [address] [place] [phone] Meenakshi Villarreal APRN, CNS, M.S. [address] [place] [phone] Referral Requested Social History Tobacco Use Types Packs/Day Years [...] How often do you attend chur or sikh services? More than 4 times per year 11/24/2022 Do you belong to any clubs o r organizations such as denominational groups, unions, fraternal or athletic groups, or [...] and heating? Not hard at all 11/24/2022 [facility] of Occupat ional Health - Occupational Stress [...] Comprehensive Visit Department of Vascular Medicine in [place], [place] [address] [place] [phone] Rk Bahena M.D. [address] [place] [phone] Discharge Disposition: Home or Self Care 05/19/2024 1:00 PM STEAM ENGINEER Telemedicine Department of Physical Medicine and Rehabilitation in [place], [place] [address] [place] [phone] Meenakshi Villarreal APRN, CHEMICAL DETECTION EXPERT, M.S. [address] [place] [phone] Discharge Disposition: Home or Self Care 05/25/2024 9:00 AM STEAM ENGINEER Appointment Department of Laboratory Medicine and Pathology, [facility] in [place], [place] [address] [place] [phone] Yuliana Flanagan, P.A.-C. [address] [place] [phone] 05/25/2024 9:30 AM STEAM ENGINEER Appointment Department of Radiology, [facility] in [place], [place] [address] [place] [phone] Yuliana Flanagan, P.A.-C. [address] [place] [phone] 05/25/2024 3:00 PM STEAM ENGINEER Office Visit Department of Urology in [place], [place] [address] [place] [phone] Yuliana Flanagan, P.A.-C. [address] [place] [phone] Scheduled Referrals Name Type Priority Associated Diagnoses Orde r Schedule Vascular Medicine - Vascular wound care consult (clinic) Outpatient Referral Routine Paraplegia (HCC) Abnormal Gait Non Orthopedic Pressure Injury (Ulcer) Of Unspecified Site Unspecified Stage Expected: 03/12/2024, Expires: 06/11/2025 documented as of this encounter Visit Diagnoses Diagnosis Pressure Injury (Ulcer) Of Unspecified Site Unspecified Stage- Primary Paraplegia (HCC) Abnormal Gait Non Orthopedic documented in this encounter Care Teams Retail Business Manager Relationship Specialty Start Date End Date Elsewhere, Pcp PCP - General Family Medicine 02/28/22 documented as of this encounter
--- OUTSIDE RECORDS SUMMARY | 2024-03-31 12:44 | XMS_ITS | Encounter Summary ---
Author Organization [facility] Address [address] [place] [address] Care Team Providers Care Bindery Machine Operator Name Role Phone Elsewhere, Pcp Primary Care Provider Unavailabl e Reason for Referral * Outpatient (Routine) - Authorized Specialty Diagnoses / Procedures Referred By Contbradford t Referred To Contact Vascular Surgery Diagnoses Non-Pressure Chronic Ulcer Of Other Part Of Left Foot With Unspecified Severity (HCC) Karime Garduno APRN, C.N.P., D.N.P. [address] [place] [address] [facility] Referral ID Status Reason Start Date Expiration Date V isits Requested Visits Authorized [id number] Authorized 03/16/2024 09/15/2025 1 1 Encounter Details Date Type Department Care Team (Late st Contact Info) Description 03/16/2024 [facility] [address] [place] [address] Karime Garduno APRN, C.N.P., D.N.P. [address] [place] [address] Non-Pressure Chronic Ulcer Of Other Part Of Left Foot With Unspecified Severity (HCC) (Primary Dx) Social History Tobacco Use [...] How often do you attend chur or pentecostal services? More than 4 times per year 11/24/2022 Do you belong to any clubs o r organizations such as latter day groups, unions, fraternal or athletic groups, or [...] and heating? Not hard at all 11/24/2022 [facility] - Occupational [...] place to sleep or slept in a group home (including now)? No 11/24/2022 Nutrition Answer Date [...] Comprehensive Visit Department of Vascular Medicine in [place], [place] [address] [place] [phone] Rk Bahena M.D. [address] [place] [phone] Discharge Disposition: Home or Self Care 05/19/2024 1:00 PM STORAGE BATTERY TESTER Telemedicine Department of Physical Medicine and Rehabilitation in [place], [place] [address] [place] [phone] Meenakshi Villarreal APRN, MOBILE DEVELOPER, M.S. [address] [place] [phone] Discharge Disposition: Home or Self Care 05/25/2024 9:00 AM STORAGE BATTERY TESTER Appointment Department of Laboratory Medicine and Pathology, [facility] in [place], [place] [address] [place] [phone] Yuliana Flanagan, P.A.-CGeno [address] [place] [phone] 05/25/2024 9:30 AM STORAGE BATTERY TESTER Appointment Department of Radiology, [facility] in [place], [place] [address] [place] [address] Yuliana Flanagan, P.A.-CGeno [address] [place] [phone] 05/25/2024 3:00 PM STORAGE BATTERY TESTER Office Visit Department of Urology in [place], [place] [address] [place] [phone] Yuliana Flanagan P.A.-C. [address] [place] [address] Scheduled Referrals Name Type Priority Associated Diagnoses Orde r Schedule Vascular Surgery Referral Outpatient Referral Routine Non-Pressure Chronic Ulcer Of Other Part Of Left Foot With Unspecified Severity (HCC) Expected: 03/16/2024 (Approximate), Expires: 06/15/2025 documented as of this encounter Visit Diagnoses Diagnosis Non-Pressure Chronic Ulcer Of Other Part Of Left Foot With Unspecified Severity (HCC)- Primary documented in this encounter Care Teams Bindery Machine Operator Relationship Specialty Start Date End Date Elsewhere, Pcp PCP - General Family Medicine 02/28/22 documented as of this encounter
--- NOTE | 2024-03-31 14:30 | CRLHL7_ITS ---
For Patients: As a result of the Century Cures Act, medical imaging exams and procedure reports are released immediately into your electronic medical record. You may view this report before your referring provider. If you have questions, please contact your health care provider. INDICATION: Chronic ulcer. TECHNIQUE: Three views of the left foot. FINDINGS: Severe skeletal demineralization. Bandage along the lateral mid foot. No subcutaneous gas or radiopaque foreign body. No specific radiographic evidence for osteomyelitis. Degenerative changes in the 1st MTP joint. Dictated by Delfino Neville MD @ 04/01/2024 3:24:34 PM (Electronically Signed)
== END 2024-03-31 12:41 | disposition home or self-care (01) ==
PROVIDERS: PCP Internal Medicine; Visit Provider Nurse Practitioner Family
DX: G62.9 Polyneuropathy, unspecified (principal); L97.528 Non-pressure chronic ulcer of other part of left foot with other specified severity; G95.11 Acute infarction of spinal cord (embolic) (nonembolic); Z99.3 Dependence on wheelchair
CPT/HCPCS: 11042; 73620; G0463

== ENCOUNTER 2024-04-07 13:00 | Outpatient (CLI) | payer MEDICARE, SELFPAY ==
--- OUTSIDE RECORDS SUMMARY | 2024-04-07 13:02 | XMS_ITS | Clinical Summary ---
Author Organization [facility] Address [address] [place] [address] Care Team Providers Care Laboratory Helper Name Role Phone Elsewhere, Pcp Primary Care Provider Unavailabl e Source Comments Patient records contain information from all sites at [facility]. For routine questions regarding patient records, call [phone] during business hours, M-F 8:00 AM - 5:00 PM Central Time. Record requests for emergency care only can be directed to [phone] at any time.[facility] Allergies Active Allergy Reactions Criticality Noted Date [...] Ancillary Procedure Department of Vascular Surgery 03/16/2024 [facility] [address] [place] [address] Karime Garduno, AVTAR, C.N.P., D.N.P. 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 Referral Requested 02/19/2024 Clinical Communication Department of Physical Medicine and Rehabilitation in [address] [phone] Meenakshi Villarreal APRN, MARY, M.S. from Last [...] week 11/24/2022 How often do you attend [facility] or mormonism services? More than 4 times per year [...] place to sleep or slept in a detention (including now)? No 11/24/2022 Nutrition Answer Date [...] Department Care Team (Latest Contact Info) Description 05/19/2024 1:00 PM PRIMARY CARE PHYSICIAN Telemedicine Department of Physical Medicine and Rehabilitation in [place], [place] [address] [place] [phone] Meenakshi Villarreal APRN, RADIOTELEGRAPHER, M.S. [address] [place] [address] Discharge Disposition: Home or Self Care 05/25/2024 9:00 AM PRIMARY CARE PHYSICIAN Appointment Department of Laboratory Medicine and Pathology, [facility], in [place], [place] [address] [place] [address] Yuliana Flanagan P.A.-Avel [address] [place] [phone] 05/25/2024 9:30 AM PRIMARY CARE PHYSICIAN Appointment Department of Radiology, [facility] in [place], [place] [address] [place] [address] Yuliana Flanagan P.A.-Avel [address] [place] [phone] 05/25/2024 3:00 PM PRIMARY CARE PHYSICIAN Office Visit Department of Urology in [place], [place] [address] [place] [address] Yuliana Flanagan P.A.-Avel [address] [place] [phone] Health Maintenance Due Date Last Done Comments CT Colonography 1955 Cologuard 1955 Colonoscopy 1955 Colorectal Cancer Screening 1955 FIT 1955 Hepatitis C Screening 1955 Zoster Vaccines (1 of 2) 2005 Pneumococcal vaccine (65+ ye ars) (1 of 1 - PCV) 01/30/2020 DTaP,Tdap,and Td Vaccines (2 - Td or Tdap) 02/09/2021 02/09/2011 Depression Screening (Annual PHQ-2) 07/08/2023 Fall Risk Screen (Annual) 07/08/2023 COVID-19 Vaccine (1 - season) 2024 Influenza Vaccine (#1) 2024 Fasting [...] System IMG NON RAD IMAGI NG PROCEDURES [facility] NA * (ABNORMAL) Basic Metabolic [...] CDT Yuliana Flanagan P.A.-C. LAB BLOOD ADD-ON [facility] [address] [place] [address], [facility] D[facility] [address] [place] [address] * CT Abdomen Pelvis without IV Contrast [...] Bladder contains air. José Miguel Chi M.D. IMG CT PROCEDURES from Last 3 Months or Most Recently Relevant to Health Maintenance Care Teams Laboratory Helper Relationship Specialty Start Date End Date Elsewhere, Pcp PCP - General Family Medicine 02/28/22
--- OUTSIDE RECORDS SUMMARY | 2024-04-07 13:02 | XMS_ITS | Encounter Summary ---
Author Organization [facility] Address [address] [place] [address] Care Team Providers Care Web Press Jogger Name Role Phone Elsewhere, Pcp Primary Care Provider Unavailabl e Reason for Referral * Outpatient (Routine) - Authorized Specialty Diagnoses / Procedures Referred By Contbradford t Referred To Contact Vascular Surgery Diagnoses Non-Pressure Chronic Ulcer Of Other Part Of Left Foot With Unspecified Severity (HCC) Karime Garduno APRN, C.N.P., D.N.P. [address] [place] [address] [facility] Referral ID Status Reason Start Date Expiration Date V isits Requested Visits Authorized [id number] Authorized 03/16/2024 09/15/2025 1 1 Encounter Details Date Type Department Care Team (Late st Contact Info) Description 03/16/2024 [facility] [address] [place] [address] Karime Garduno APRN, C.N.P., D.N.P. [address] [place] [address] Non-Pressure Chronic Ulcer Of Other [...] How often do you attend chur or taoist services? More than 4 times per year 11/24/2022 Do you belong to any clubs o r organizations such as taoist groups, unions, fraternal or athletic groups, or [...] and heating? Not hard at all 11/24/2022 [facility] Occupat ional Health [...] (Latest Contact Info) Description 05/19/2024 1:00 PM GRAIN UNLOADER Telemedicine Department of Physical Medicine and Rehabilitation in [place], [place] [address] [place] [address] Meenakshi Villarreal APRN, HAND TRIMMER, M.S. [address] [place] [phone] Discharge Disposition: Home or Self Care 05/25/2024 9:00 AM GRAIN UNLOADER Appointment Department of Laboratory Medicine and Pathology, [facility] in [place], [place] [address] [place] [phone] Yuliana Flanagan, P.A.-C. [address] [place] [phone] 05/25/2024 9:30 AM GRAIN UNLOADER Appointment Department of Radiology, [facility] in [place], [place] [address] [place] [address] Yuliana Flanagan, P.A.-C. [address] [place] [phone] 05/25/2024 3:00 PM GRAIN UNLOADER Office Visit Department of Urology in [place], [place] [address] [place] [phone] Yuliana Flanagan, P.A.-C. [address] [place] [phone] Scheduled Referrals Name Type Priority Associated Diagnoses Orde r Schedule Vascular Surgery Referral Outpatient Referral Routine Non-Pressure Chronic Ulcer Of Other Part Of Left Foot With Unspecified Severity (HCC) Expected: 03/16/2024 (Approximate), Expires: 06/15/2025 documented as of this encounter Visit Diagnoses Diagnosis Non-Pressure Chronic Ulcer Of Other Part Of Left Foot With Unspecified Severity (HCC)- Primary documented in this encounter Care Teams Web Press Jogger Relationship Specialty Start Date End Date Elsewhere, Pcp PCP - General Family Medicine 02/28/22 documented as of this encounter
--- OUTSIDE RECORDS SUMMARY | 2024-04-07 13:02 | XMS_ITS | Encounter Summary ---
Author Organization [facility] Address [address] [place] [address] Care Team Providers Care Fountain Pen Turner Name Role Phone Elsewhere, Pcp Primary Care Provider Unavailabl e Encounter Details Date Type Department Care Team (Latest Contact Info) Description 02/19/2024 Clinical Communication Department of Physical Medicine and Rehabilitation in [place], [place] [address] [place] [phone] Meenakshi Villarreal, AVTAR, ADOBE LAYER, M.S. [address] [place] [phone] Social History Tobacco Use Types Packs/Day Years [...] often do you attend chur ch or episcopal services? More than 4 times per year 11/24/2022 Do you belong to any clubs o r organizations such as mu-ism groups, unions, fraternal or athletic groups, or [...] and heating? Not hard at all 11/24/2022 [facility] - Occupational [...] (Latest Contact Info) Description 05/19/2024 1:00 PM PINBALL MACHINE REPAIRER Telemedicine Department of Physical Medicine and Rehabilitation in [place], [place] [address] [place] [phone] Meenakshi Villarreal APRN, ADOBE LAYER, M.S. [address] [place] [address] Discharge Disposition: Home or Self Care 05/25/2024 9:00 AM PINBALL MACHINE REPAIRER Appointment Department of Laboratory Medicine and Pathology, [facility] in [place], [place] [address] [place] [address] Yuliana Flanagan P.A.-C. [address] [place] [phone] 05/25/2024 9:30 AM PINBALL MACHINE REPAIRER Appointment Department of Radiology, [facility] in [place], [place] [address] [place] [address] Yuliana Flanagan P.A.-C. [address] [place] [phone] 05/25/2024 3:00 PM PINBALL MACHINE REPAIRER Office Visit Department of Urology in [place], [place] [address] [place] [address] Yuliana Flanagan P.A.-C. [address] [place] [phone] documented as of this encounter Visit Diagnoses Diagnosis Abnormal Gait Non Orthopedic- Primary Paraplegia (HCC) Spasticity documented in this encounter Care Teams Fountain Pen Turner Relationship Specialty Start Date End Date Elsewhere, Pcp PCP - General Family Medicine 02/28/22 documented as of this encounter
--- OUTSIDE RECORDS SUMMARY | 2024-04-07 13:02 | XMS_ITS | Clinical Summary ---
Author Organization [facility] Address [place], [place] [address] Care Team Providers Care Hardware Manager Name Role Phone Macario Villa MD [...] Recently Relevant to Health Maintenance Care Teams Hardware Manager Relationship Specialty Start Date End Date Macario Villa MD [address] [place] [address] PCP - General Emergency Medicine 02/22/16
--- OUTSIDE RECORDS SUMMARY | 2024-04-07 13:02 | XMS_ITS | Encounter Summary ---
Author Organization [facility] Address [address] [place] [address] Care Team Providers Care Fleet Dispatch Manager Name Role Phone Elsewhere, Pcp Primary Care Provider Unavailabl e Reason for Referral * Outpatient (Routine) - Closed Specialty Diagnoses / Procedures Referred By Contact Referred To Contact Physical Medicine and Rehabilitation Diagnoses Stroke (HCC) Macario Villa M.D. [address] [place] [address] [facility] Referral ID Status Reason Start Date Expiration Date Visits Re quested Visits Authorized [id number] Closed 08/26/2018 08/26/2019 1 1 LE SHEAR OPERATOR Encounter Details Date Type Department Care Team (Late st Contact Info) Description 08/26/2018 [facility] [address] [place] [address] Macario Villa M.D. [address] [place] [phone] Stroke (HCC) (Primary Dx) Social History Tobacco [...] (Latest Contact Info) Description 05/19/2024 1:00 PM STAPLE SHEAR OPERATOR Telemedicine Department of Physical Medicine and Rehabilitation in [place], [place] [address] [place] [phone] Meenakshi Villarreal APRN, INTERVENTION NURSE, M.S. [address] [place] [phone] Discharge Disposition: Home or Self Care 05/25/2024 9:00 AM STAPLE SHEAR OPERATOR Appointment Department of Laboratory Medicine and Pathology, [facility] in [place], [place] [address] [place] [phone] Yuliana Flanagan, P.A.-CGeno [address] [place] [phone] 05/25/2024 9:30 AM STAPLE SHEAR OPERATOR Appointment Department of Radiology, [facility] in [place], [place] [address] [place] [address] Yuliana Flanagan, P.A.-C. [address] [place] [phone] 05/25/2024 3:00 PM STAPLE SHEAR OPERATOR Office Visit Department of Urology in [place], [place] [address] [place] [phone] Yuliana Flanagan P.A.-C. [address] [place] [phone] Scheduled Referrals Name Type Priority Associated Diagnoses Orde r Schedule Neurology Referral Outpatient Referral Routine Stroke (HCC) Expected: 08/26/2018 (Approximate), Expires: 08/26/2021 documented as of this encounter Visit Diagnoses Diagnosis Stroke (HCC)- Primary documented in this encounter Care Teams Fleet Dispatch Manager Relationship Specialty Start Date End Date Elsewhere, Pcp PCP - General Family Medicine 02/28/22 documented as of this encounter
--- OUTSIDE RECORDS SUMMARY | 2024-04-07 13:02 | XMS_ITS ---
Author Organization [facility] Address [address] [place] [address] Care Team Providers Care Machine Puller Name Role Phone Unavailable Unavailable Unavailable Surgery Details Not on file Complications Check Surgery Details section. Procedure Estimated Blood Loss Check Surgery Details section. Procedure Findings Check Surgery Details section. Procedure Specimens Taken Check Surgery Details section.
--- OUTSIDE RECORDS SUMMARY | 2024-04-07 13:02 | XMS_ITS | Encounter Summary ---
Author Organization [facility] Address [address] [place] [address] Care Team Providers Care Fuel Injection Servicer Name Role Phone Elsewhere, Pcp Primary Care Provider Unavailabl e Encounter Details Date Type Department Care Team (Late st Contact Info) Description 09/12/2018 [facility] [address] [place] [address] Erma Morejon M.D. [address] [place] [address] Social History Tobacco Use Types Packs/Day Years [...] (Latest Contact Info) Description 05/19/2024 1:00 PM FAX MACHINE OPERATOR Telemedicine Department of Physical Medicine and Rehabilitation in [place], [place] [address] [place] [phone] Meenakshi Villarreal APRN, ACCOUNTS ADMINISTRATOR, M.S. 200 [place] [phone] Discharge Disposition: Home or Self Care 05/25/2024 9:00 AM FAX MACHINE OPERATOR Appointment Department of Laboratory Medicine and Pathology, [facility], in [place], [place] [address] [place] [phone] Yuliana Flanagan P.A.-C. [address] [place] [address] 05/25/2024 9:30 AM FAX MACHINE OPERATOR Appointment Department of Radiology, [facility], in [place], [place] [address] [place] [address] Yuliana Flanagan P.A.-C. [address] [place] [phone] 05/25/2024 3:00 PM FAX MACHINE OPERATOR Office Visit Department of Urology in [place], [place] [address] [place] [address] Yuliana Flanagan P.A.-C. [address] [place] [phone] documented as of this encounter Visit Diagnoses Not on filedocumented in this encounter Care Teams Fuel Injection Servicer Relationship Specialty Start Date End Date Elsewhere, Pcp PCP - General Family Medicine 02/28/22 documented as of this encounter
--- OUTSIDE RECORDS SUMMARY | 2024-04-07 13:02 | XMS_ITS | Referral Summary ---
Author Organization [facility] Address [address] [place] [address] Care Team Providers Care Panel Sewer Name Role Phone Elsewhere, Pcp Primary Care Provider Unavailabl e Source Comments Patient records contain information from all sites at [facility]. For routine questions regarding patient records, call [phone] during business hours, M-F 8:00 AM - 5:00 PM Central Time. Record requests for emergency care only can be directed to [phone] at any time.[facility] Encounters Date Type Department Care Team Description 03/16/2024 Ancillary Procedure Department of Vascular Surgery 03/16/[address] [address] Karime Garduno APRN, C.N.P., D.N.P. Non-Pressure Chronic Ulcer Of Other Part Of Left Foot With Unspecified Severity (HCC) (Primary Dx) 03/12/2024 Clinical Communication Department of Physical Medicine and Rehabilitation in [address] [phone] Meenakshi Villarreal APRN, MARY, M.S. Referral Requested 02/19/2024 Clinical Communication Department of Physical Medicine and Rehabilitation in [address] [phone] Meenakshi Villarreal APRN, MARY, M.S. from Last [...] How often do you attend chur or protestant services? More than 4 times per year 11/24/2022 Do you belong to any clubs o r organizations such as christian groups, unions, fraternal or athletic groups, or [...] heating? Not hard at all 11/24/2022 [facility] of Occupat ional Health - Occupational [...] (Latest Contact Info) Description 05/19/2024 1:00 PM STEAM GIGGER Telemedicine Department of Physical Medicine and Rehabilitation in [place], [place] [address] [place] [phone] Meenakshi Villarreal APRN, HOME CARE RN, M.S. [address] [place] [address] Discharge Disposition: Home or Self Care 05/25/2024 9:00 AM STEAM GIGGER Appointment Department of Laboratory Medicine and Pathology, [facility], in [place], [place] [address] [place] [address] Yuliana Flanagan P.A.-C. [address] [place] [phone] 05/25/2024 9:30 AM STEAM GIGGER Appointment Department of Radiology, [facility], in [place], [place] [address] [place] [address] Yuliana Flanagan P.A.-C. [address] [place] [phone] 05/25/2024 3:00 PM STEAM GIGGER Office Visit Department of Urology in [place], [place] [address] [place] [address] Yuliana Flanagan P.A.-C. [address] [place] [phone] Procedures Procedure Name Priority Date/Time Associated Diagnosis [...] NON RAD IMAGI NG PROCEDURES [facility] NA * (ABNORMAL) Basic Metabolic Panel (05/03/2023 [...] CDT Yuliana Flanagan P.A.-C. LAB BLOOD ADD-ON [facility] [address] [place] [address], [facility] [address] [place] [address] * CT Abdomen Pelvis without IV Contrast [...] Recently Relevant to Health Maintenance Care Teams Panel Sewer Relationship Specialty Start Date End Date Elsewhere, Pcp PCP - General Family Medicine 02/28/22
--- OUTSIDE RECORDS SUMMARY | 2024-04-07 13:02 | XMS_ITS | Encounter Summary ---
Author Organization [facility] Address [address] [place] [address] Care Team Providers Care Group Counselor Name Role Phone Elsewhere, Pcp Primary Care [...] week 11/24/2022 How often do you attend [facility] or yarsanism services? More than 4 times per year 11/24/2022 Do you belong to any clubs o r organizations such as yarsani groups, unions, fraternal or athletic groups, or [...] and heating? Not hard at all 11/24/2022 [facility] of Occupat ional Health - Occupational [...] place to sleep or slept in a fdc (including now)? No 11/24/2022 Nutrition Answer Date [...] (Latest Contact Info) Description 05/19/2024 1:00 PM OYSTER BUYER Telemedicine Department of Physical Medicine and Rehabilitation in [place], [place] [address] [place] [phone] Meenakshi Villarreal APRN, FICTION AND NONFICTION PROSE WRITER, M.S. 200 [place] [phone] Discharge Disposition: Home or Self Care 05/25/2024 9:00 AM OYSTER BUYER Appointment Department of Laboratory Medicine and Pathology, [facility], in [place], [place] 200 [place] [phone] Yuliana Flanagan, PGenoAGeno-Maranda. [address] [place] [phone] 05/25/2024 9:30 AM OYSTER BUYER Appointment Department of Radiology, [facility], in [place], [place] [address] [place] [address] Yuliana Flanagan P.A.-C. [address] [place] [address] 05/25/2024 3:00 PM OYSTER BUYER Office Visit Department of Urology in [place], [place] [address] [place] [address] Yuliana Flanagan P.A.-C. [address] [place] [address] documented as of this encounter Procedures Procedure [...] on filedocumented in this encounter Care Teams Group Counselor Relationship Specialty Start Date End Date Elsewhere, Pcp PCP - General Family Medicine 02/28/22 documented as of this encounter
--- OUTSIDE RECORDS SUMMARY | 2024-04-07 13:02 | XMS_ITS | Encounter Summary ---
Author Organization [facility] Address [address] [place] [address] Care Team Providers Care Actuarial Analyst Name Role Phone Elsewhere, Pcp Primary Care Provider Unavailabl e Reason for Referral * Outpatient (Routine) - Authorized Specialty Diagnoses / Procedures Referred By Yaron rodriguez Referred To Contact Vascular Medicine Diagnoses Paraplegia (HCC) Abnormal Gait Non Orthopedic Pressure Injury (Ulcer) Of Unspecified Site Unspecified Stage Meenakshi Villarreal APRN, CNS, M.S. [address] [place] [phone] [facility] Referral ID Status Reason Start Date Expiration Date V isits Requested Visits Authorized [id number] Authorized 03/12/2024 09/11/2025 1 1 Reason for Visit * Reason Onset Date Comments Referral Requested 03/12/2024 Encounter Details Date Type Department Care Team (Latest Contact Info) Description 03/12/2024 Clinical Communication Department of Physical Medicine and Rehabilitation in [place], [place] [address] [place] [phone] Meenakshi Villarreal APRN, CNS, M.S. [address] [place] [phone] Referral Requested Social History Tobacco Use Types [...] How often do you attend chur or mandaen services? More than 4 times per year 11/24/2022 Do you belong to any clubs o r organizations such as nondenominational groups, unions, fraternal or athletic groups, or [...] and heating? Not hard at all 11/24/2022 [facility] of Occupat ional Health - Occupational Stress [...] (Latest Contact Info) Description 05/19/2024 1:00 PM TELECOMMUNICATIONS LINESWORKER Telemedicine Department of Physical Medicine and Rehabilitation in [place], [place] [address] [place] [phone] Meenakshi Villarreal APRN, GORE CUTTER, M.S. [address] [place] [phone] Discharge Disposition: Home or Self Care 05/25/2024 9:00 AM TELECOMMUNICATIONS LINESWORKER Appointment Department of Laboratory Medicine and Pathology, [facility] in [place], [place] [address] [place] [phone] Yuliana Flanagan, P.A.-CGeno [address] [place] [phone] 05/25/2024 9:30 AM TELECOMMUNICATIONS LINESWORKER Appointment Department of Radiology, [facility] in [place], [place] [address] [place] [phone] Yuliana Flanagan, P.A.-CGeno [address] [place] [phone] 05/25/2024 3:00 PM TELECOMMUNICATIONS LINESWORKER Office Visit Department of Urology in [place], [place] [address] [place] [phone] Yuliana Flanagan, P.A.-CGeno [address] [place] [phone] Scheduled Referrals Name Type Priority Associated Diagnoses Orde r Aliyah Vascular Medicine - Vascular wound care consult (clinic) Outpatient Referral Routine Paraplegia (HCC) Abnormal Gait Non Orthopedic Pressure Injury (Ulcer) Of Unspecified Site Unspecified Stage Expected: 03/12/2024, Expires: 06/11/2025 documented as of this encounter Visit Diagnoses Diagnosis Pressure Injury (Ulcer) Of Unspecified Site Unspecified Stage- Primary Paraplegia (HCC) Abnormal Gait Non Orthopedic documented in this encounter Care Teams Actuarial Analyst Relationship Specialty Start Date End Date Elsewhere, Pcp PCP - General Family Medicine 02/28/22 documented as of this encounter
== END 2024-04-07 13:01 | disposition home or self-care (01) ==
LOC: WOUND 13:00
PROVIDERS: PCP Internal Medicine; Visit Provider Nurse Practitioner Family
DX: L97.522 Non-pressure chronic ulcer of other part of left foot with fat layer exposed (principal); G99.0 Autonomic neuropathy in diseases classified elsewhere
CPT/HCPCS: 11042

== ENCOUNTER 2024-04-14 12:59 | Outpatient (CLI) | payer MEDICARE, SELFPAY ==
--- OUTSIDE RECORDS SUMMARY | 2024-04-14 13:05 | XMS_ITS | Encounter Summary ---
Author Organization [facility] Address [address] [place] [address] Care Team Providers Care Beer Maker Name Role Phone Elsewhere, Pcp Primary Care Provider Unavailabl e Reason for Referral * Outpatient (Routine) - Authorized Specialty Diagnoses / Procedures Referred By Contbradford t Referred To Contact Vascular Surgery Diagnoses Non-Pressure Chronic Ulcer Of Other Part Of Left Foot With Unspecified Severity (HCC) Karime Garduno APRN, C.N.P., D.N.P. [address] [place] [address] [facility] Referral ID Status Reason Start Date Expiration Date V isits Requested Visits Authorized [id number] Authorized 03/16/2024 09/15/2025 1 1 Encounter Details Date Type Department Care Team (Late st Contact Info) Description 03/16/2024 [facility] [address] [place] [address] Karime Garduno APRN, C.N.P., D.N.P. [address] [place] [address] Non-Pressure Chronic Ulcer Of Other [...] How often do you attend chur or confucianism services? More than 4 times per year 11/24/2022 Do you belong to any clubs o r organizations such as faith groups, unions, fraternal or athletic groups, or [...] and heating? Not hard at all 11/24/2022 [facility] of Occupat ional Health [...] (Latest Contact Info) Description 05/19/2024 1:00 PM THERMIT WELDING MACHINE OPERATOR Telemedicine Department of Physical Medicine and Rehabilitation in [place], [place] [address] [place] [address] Meenakshi Villarreal APRN, BOOT TURNER, M.S. [address] [place] [phone] Discharge Disposition: Home or Self Care 05/25/2024 9:00 AM THERMIT WELDING MACHINE OPERATOR Appointment Department of Laboratory Medicine and Pathology, [facility] in [place], [place] [address] [place] [phone] Yuliana Flanagan, P.A.-C. [address] [place] [phone] 05/25/2024 9:30 AM THERMIT WELDING MACHINE OPERATOR Appointment Department of Radiology, [facility] in [place], [place] [address] [place] [address] Yuliana Flanagan, P.A.-C. [address] [place] [phone] 05/25/2024 3:00 PM THERMIT WELDING MACHINE OPERATOR Office Visit Department of Urology in [place], [place] [address] [place] [phone] Yuliana Flanagan, P.A.-C. [address] [place] [phone] Scheduled Referrals Name Type Priority Associated Diagnoses Orde r Schedule Vascular Surgery Referral Outpatient Referral Routine Non-Pressure Chronic Ulcer Of Other Part Of Left Foot With Unspecified Severity (HCC) Expected: 03/16/2024 (Approximate), Expires: 06/15/2025 documented as of this encounter Visit Diagnoses Diagnosis Non-Pressure Chronic Ulcer Of Other Part Of Left Foot With Unspecified Severity (HCC)- Primary documented in this encounter Care Teams Beer Maker Relationship Specialty Start Date End Date Elsewhere, Pcp PCP - General Family Medicine 02/28/22 documented as of this encounter
--- OUTSIDE RECORDS SUMMARY | 2024-04-14 13:05 | XMS_ITS | Clinical Summary ---
Author Organization [facility] Address [address] [place] [address] Care Team Providers Care Core Fitter Name Role Phone Elsewhere, Pcp Primary Care Provider Unavailabl e Source Comments Patient records contain information from all sites at [facility]. For routine questions regarding patient records, call [phone] during business hours, M-F 8:00 AM - 5:00 PM Central Time. Record requests for emergency care only can be directed to [phone] at any time.[facility] Allergies Active Allergy Reactions Criticality Noted Date [...] Ancillary Procedure Department of Vascular Surgery 03/16/2024 [facility] [address] [place] [address] Karime Garduno, AVTAR, C.N.P., D.N.P. 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 Referral Requested 02/19/2024 Clinical Communication Department of Physical Medicine and Rehabilitation in [address] [phone] Meenakshi Villarreal APRN, MARY, M.S. from Last [...] week 11/24/2022 How often do you attend [facility] or adventism services? More than 4 times per year [...] and heating? Not hard at all 11/24/2022 [facility] of Occupat ional Health - [...] place to sleep or slept in a prison (including now)? No 11/24/2022 Nutrition Answer Date [...] (Latest Contact Info) Description 05/19/2024 1:00 PM RIVET SORTER Telemedicine Department of Physical Medicine and Rehabilitation in [place], [place] [address] [place] [phone] Meenakshi Villarreal APRN, BEATER ENGINEER, M.S. [address] [place] [address] Discharge Disposition: Home or Self Care 05/25/2024 9:00 AM RIVET SORTER Appointment Department of Laboratory Medicine and Pathology, [facility], in [place], [place] [address] [place] [address] Yuliana Flanagan P.A.-Avel [address] [place] [phone] 05/25/2024 9:30 AM RIVET SORTER Appointment Department of Radiology, [facility] in [place], [place] [address] [place] [address] Yuliana Flanagan P.A.-Avel [address] [place] [phone] 05/25/2024 3:00 PM RIVET SORTER Office Visit Department of Urology in [place], [place] [address] [place] [address] Yuliana Flanagan P.A.-Avel [address] [place] [phone] Health Maintenance Due Date Last Done Comments [...] System IMG NON RAD IMAGI NG PROCEDURES [facility] NA * (ABNORMAL) Basic Metabolic Panel (05/03/2023 [...] CDT Yuliana Flanagan P.A.-C. LAB BLOOD ADD-ON [facility] [address] [place] [address], [facility] [address] [place] [address] * CT Abdomen Pelvis without IV Contrast [...] Recently Relevant to Health Maintenance Care Teams Core Fitter Relationship Specialty Start Date End Date Elsewhere, Pcp PCP - General Family Medicine 02/28/22
--- OUTSIDE RECORDS SUMMARY | 2024-04-14 13:05 | XMS_ITS | Encounter Summary ---
Author Organization [facility] Address [address] [place] [address] Care Team Providers Care Partner Management Consultant Name Role Phone Elsewhere, Pcp Primary Care Provider Unavailabl e Reason for Referral * Outpatient (Routine) - Authorized Specialty Diagnoses / Procedures Referred By Yaron rodriguez Referred To Contact Vascular Medicine Diagnoses Paraplegia (HCC) Abnormal Gait Non Orthopedic Pressure Injury (Ulcer) Of Unspecified Site Unspecified Stage Meenakshi Villarreal APRN, CNS, M.S. [address] [place] [phone] [facility] Referral ID Status Reason Start Date Expiration Date V isits Requested Visits Authorized [id number] Authorized 03/12/2024 09/11/2025 1 1 Reason for Visit * Reason Onset Date Comments Referral Requested 03/12/2024 Encounter Details Date Type Department Care Team (Latest Contact Info) Description 03/12/2024 Clinical Communication Department of Physical Medicine and Rehabilitation in [place], [place] [address] [place] [phone] Meenakshi Villarreal APRN, CNS, M.S. [address] [place] [phone] Referral Requested Social History Tobacco Use Types [...] How often do you attend chur or shinto services? More than 4 times per year 11/24/2022 Do you belong to any clubs o r organizations such as mandaen groups, unions, fraternal or athletic groups, or [...] and heating? Not hard at all 11/24/2022 [facility] of Occupat ional Health - Occupational Stress [...] (Latest Contact Info) Description 05/19/2024 1:00 PM HARBOR PILOT Telemedicine Department of Physical Medicine and Rehabilitation in [place], [place] [address] [place] [phone] Meenakshi Villarreal APRN, DRILL RUNNER HELPER, M.S. [address] [place] [phone] Discharge Disposition: Home or Self Care 05/25/2024 9:00 AM HARBOR PILOT Appointment Department of Laboratory Medicine and Pathology, [facility] in [place], [place] [address] [place] [phone] Yuliana Flanagan, P.A.-CGeno [address] [place] [phone] 05/25/2024 9:30 AM HARBOR PILOT Appointment Department of Radiology, [facility] in [place], [place] [address] [place] [phone] Yuliana Falnagan, P.A.-CGeno [address] [place] [phone] 05/25/2024 3:00 PM HARBOR PILOT Office Visit Department of Urology in [place], [place] [address] [place] [phone] Yuliana Flanagan, P.A.-CGeno [address] [place] [phone] Scheduled Referrals Name Type Priority Associated Diagnoses [...] Orthopedic documented in this encounter Care Teams Partner Management Consultant Relationship Specialty Start Date End Date Elsewhere, Pcp PCP - General Family Medicine 02/28/22 documented as of this encounter
--- OUTSIDE RECORDS SUMMARY | 2024-04-14 13:05 | XMS_ITS | Referral Summary ---
Author Organization [facility] Address [address] [place] [address] Care Team Providers Care Bead Flipper Name Role Phone Elsewhere, Pcp Primary Care Provider Unavailabl e Source Comments Patient records contain information from all sites at [facility]. For routine questions regarding patient records, call [phone] during business hours, M-F 8:00 AM - 5:00 PM Central Time. Record requests for emergency care only can be directed to [phone] at any time.[facility] Encounters Date Type Department Care Team Description 03/16/2024 Ancillary Procedure Department of Vascular Surgery 03/16/[address] [address] Karime Garduno APRN, C.N.P., D.N.P. 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 Referral Requested 02/19/2024 Clinical Communication Department of Physical Medicine and Rehabilitation in [address] [phone] Meenakshi Villarreal APRN, MARY, M.S. from Last [...] How often do you attend chur or caodaism services? More than 4 times per year [...] (Latest Contact Info) Description 05/19/2024 1:00 PM RESEARCH ARCHAEOLOGIST Telemedicine Department of Physical Medicine and Rehabilitation in [address] [place] [phone] Meenakshi Villarreal APRN, RECRUITMENT ASSISTANT, M.S. [address] [place] [address] Discharge Disposition: Home or Self Care 05/25/2024 9:00 AM RESEARCH ARCHAEOLOGIST Appointment Department of Laboratory Medicine and Pathology, [place], in [address] [place] [address] Yuliana Flanagan P.A.-C. [address] [place] [phone] 05/25/2024 9:30 AM RESEARCH ARCHAEOLOGIST Appointment Department of Radiology, [facility], in [address] [place] [address] Yuliana Flanagan P.A.-C. [address] [place] [phone] 05/25/2024 3:00 PM RESEARCH ARCHAEOLOGIST Office Visit Department of Urology in [address] [place] [address] Yuliana Flanagan P.A.-C. [address] [place] [phone] Procedures Procedure Name Priority Date/Time Associated Diagnosis [...] CDT Yuliana Flanagan P.A.-C. LAB BLOOD ADD-ON [facility] [address] [place] [address], [facility] [address] [place] [address] * CT Abdomen Pelvis without IV Contrast [...] Recently Relevant to Health Maintenance Care Teams Bead Flipper Relationship Specialty Start Date End Date Elsewhere, Pcp PCP - General Family Medicine 02/28/22
--- OUTSIDE RECORDS SUMMARY | 2024-04-14 13:05 | XMS_ITS ---
Author Organization [facility] Address [address] [place] [address] Care Team Providers Care Postal Service Window Clerk Name Role Phone Unavailable Unavailable Unavailable Surgery Details Not on file Complications Check Surgery Details section. Procedure Estimated Blood Loss Check Surgery Details section. Procedure Findings Check Surgery Details section. Procedure Specimens Taken Check Surgery Details section.
--- OUTSIDE RECORDS SUMMARY | 2024-04-14 13:05 | XMS_ITS | Encounter Summary ---
Author Organization [facility] Address [address] [place] [address] Care Team Providers Care Material Flow Engineer Name Role Phone Elsewhere, Pcp Primary Care Provider Unavailabl e Encounter Details Date Type Department Care Team (Late st Contact Info) Description 09/12/2018 [facility] [address] [place] [address] Erma Morejon M.D. [address] [place] [address] Social History Tobacco Use Types Packs/Day Years [...] (Latest Contact Info) Description 05/19/2024 1:00 PM BOOKKEEPER RECEPTIONIST Telemedicine Department of Physical Medicine and Rehabilitation in [place], [place] [address] [place] [phone] Meenakshi Villarreal APRN, ACTIVITY SPECIALIST, M.S. 200 [place] [phone] Discharge Disposition: Home or Self Care 05/25/2024 9:00 AM BOOKKEEPER RECEPTIONIST Appointment Department of Laboratory Medicine and Pathology, [facility], in [place], [place] [address] [place] [phone] Yuliana Flanagan P.A.-C. [address] [place] [address] 05/25/2024 9:30 AM BOOKKEEPER RECEPTIONIST Appointment Department of Radiology, [facility], in [place], [place] [address] [place] [address] Yuliana Flanagan P.A.-C. [address] [place] [phone] 05/25/2024 3:00 PM BOOKKEEPER RECEPTIONIST Office Visit Department of Urology in [place], [place] [address] [place] [address] Yuliana Flanagan P.A.-C. [address] [place] [phone] documented as of this encounter Visit Diagnoses Not on filedocumented in this encounter Care Teams Material Flow Engineer Relationship Specialty Start Date End Date Elsewhere, Pcp PCP - General Family Medicine 02/28/22 documented as of this encounter
--- OUTSIDE RECORDS SUMMARY | 2024-04-14 13:05 | XMS_ITS | Encounter Summary ---
Author Organization [facility] Address [address] [place] [address] Care Team Providers Care Special Diet Cook Name Role Phone Elsewhere, Pcp Primary Care Provider Unavailabl e Encounter Details Date Type Department Care Team (Latest Contact Info) Description 02/19/2024 Clinical Communication Department of Physical Medicine and Rehabilitation in [place], [place] [address] [place] [phone] Meenakshi Villarreal, AVTAR, GEAR LAPPING MACHINE OPERATOR, M.S. [address] [place] [phone] Social History Tobacco Use Types Packs/Day Years [...] often do you attend chur ch or mandaeism services? More than 4 times per year 11/24/2022 Do you belong to any clubs o r organizations such as taoism groups, unions, fraternal or athletic groups, or [...] heating? Not hard at all 11/24/2022 [facility] of Occupat ional Health - [...] (Latest Contact Info) Description 05/19/2024 1:00 PM MOVIE OPERATOR Telemedicine Department of Physical Medicine and Rehabilitation in [place], [place] [address] [place] [phone] Meenakshi Villarreal APRN, GEAR LAPPING MACHINE OPERATOR, M.S. [address] [place] [address] Discharge Disposition: Home or Self Care 05/25/2024 9:00 AM MOVIE OPERATOR Appointment Department of Laboratory Medicine and Pathology, [facility] in [place], [place] [address] [place] [address] Yuliana Flanagan P.A.-C. [address] [place] [phone] 05/25/2024 9:30 AM MOVIE OPERATOR Appointment Department of Radiology, [facility] in [place], [place] [address] [place] [address] Yuliana Flanagan P.A.-C. [address] [place] [phone] 05/25/2024 3:00 PM MOVIE OPERATOR Office Visit Department of Urology in [place], [place] [address] [place] [address] Yuliana Flanagan P.A.-C. [address] [place] [phone] documented as of this encounter Visit Diagnoses Diagnosis Abnormal Gait Non Orthopedic- Primary Paraplegia (HCC) Spasticity documented in this encounter Care Teams Special Diet Cook Relationship Specialty Start Date End Date Elsewhere, Pcp PCP - General Family Medicine 02/28/22 documented as of this encounter
--- OUTSIDE RECORDS SUMMARY | 2024-04-14 13:05 | XMS_ITS | Encounter Summary ---
Author Organization [facility] Address [address] [place] [address] Care Team Providers Care Quality Control Systems Manager Name Role Phone Elsewhere, Pcp Primary Care Provider Unavailabl e Reason for Referral * Outpatient (Routine) - Closed Specialty Diagnoses / Procedures Referred By Contact Referred To Contact Physical Medicine and Rehabilitation Diagnoses Stroke (HCC) Macario Villa M.D. [address] [place] [address] [facility] Referral ID Status Reason Start Date Expiration Date Visits Re quested Visits Authorized [id number] Closed 08/26/2018 08/26/2019 1 1 TAGGER Encounter Details Date Type Department Care Team (Late st Contact Info) Description 08/26/2018 [facility] [address] [place] [address] Macario Villa M.D. [address] [place] [phone] Stroke (HCC) (Primary Dx) Social History Tobacco [...] (Latest Contact Info) Description 05/19/2024 1:00 PM BEEF TAGGER Telemedicine Department of Physical Medicine and Rehabilitation in [place], [place] [address] [place] [phone] Meenakshi Villarreal APRN, GUIDE DELEGATE, M.S. [address] [place] [phone] Discharge Disposition: Home or Self Care 05/25/2024 9:00 AM BEEF TAGGER Appointment Department of Laboratory Medicine and Pathology, [facility] in [place], [place] [address] [place] [phone] Yuliana Flanagan, P.A.-CGeno [address] [place] [phone] 05/25/2024 9:30 AM BEEF TAGGER Appointment Department of Radiology, [facility] in [place], [place] [address] [place] [address] Yuliana Flanagan, P.A.-C. [address] [place] [phone] 05/25/2024 3:00 PM BEEF TAGGER Office Visit Department of Urology in [place], [place] [address] [place] [phone] Yuliana Flanagan P.A.-C. [address] [place] [phone] Scheduled Referrals Name Type Priority Associated Diagnoses Orde r Schedule Neurology Referral Outpatient Referral Routine Stroke (HCC) Expected: 08/26/2018 (Approximate), Expires: 08/26/2021 documented as of this encounter Visit Diagnoses Diagnosis Stroke (HCC)- Primary documented in this encounter Care Teams Quality Control Systems Manager Relationship Specialty Start Date End Date Elsewhere, Pcp PCP - General Family Medicine 02/28/22 documented as of this encounter
--- OUTSIDE RECORDS SUMMARY | 2024-04-14 13:05 | XMS_ITS | Encounter Summary ---
Author Organization [facility] Address [address] [place] [address] Care Team Providers Care Fur Scraper Name Role Phone Elsewhere, Pcp Primary Care [...] often do you attend [facility] or bahai services? More than 4 times per year 11/24/2022 Do you belong to any clubs o r organizations such as islam groups, unions, fraternal or athletic groups, or [...] place to sleep or slept in a custodial (including now)? No 11/24/2022 Nutrition Answer Date [...] (Latest Contact Info) Description 05/19/2024 1:00 PM QUALITY RN Telemedicine Department of Physical Medicine and Rehabilitation in [place], [place] [address] [place] [phone] Meenakshi Villarreal APRN, PROFESSOR OF INDUSTRIAL TECHNOLOGY, M.S. 200 [place] [phone] Discharge Disposition: Home or Self Care 05/25/2024 9:00 AM QUALITY RN Appointment Department of Laboratory Medicine and Pathology, [facility], in [place], [place] 200 [place] [phone] Yuliana Flanagan, PGenoAGeno-Maranda. [address] [place] [phone] 05/25/2024 9:30 AM QUALITY RN Appointment Department of Radiology, [facility], in [place], [place] [address] [place] [address] Yuliana Flanagan P.A.-C. [address] [place] [address] 05/25/2024 3:00 PM QUALITY RN Office Visit Department of Urology in [place], [place] [address] [place] [address] Yuliana Flanagan P.A.-C. [address] [place] [phone] documented as of this encounter Procedures Procedure [...] on filedocumented in this encounter Care Teams Fur Scraper Relationship Specialty Start Date End Date Elsewhere, Pcp PCP - General Family Medicine 02/28/22 documented as of this encounter
--- OUTSIDE RECORDS SUMMARY | 2024-04-14 13:05 | XMS_ITS | Clinical Summary ---
Author Organization [facility] Address [place], [place] [address] Care Team Providers Care Maintenance Tech Name Role Phone Macario Villa MD Primary Care Provider [phone] Allergies Active Allergy Reactions Criticality Noted Date [...] Recently Relevant to Health Maintenance Care Teams Maintenance Tech Relationship Specialty Start Date End Date Macario Villa MD [address] [place] [address] PCP - General Emergency Medicine 02/22/16
== END 2024-04-14 13:00 | disposition home or self-care (01) ==
LOC: WOUND 12:59
PROVIDERS: PCP Internal Medicine; Visit Provider Nurse Practitioner Family
DX: L97.528 Non-pressure chronic ulcer of other part of left foot with other specified severity (principal); G99.0 Autonomic neuropathy in diseases classified elsewhere
CPT/HCPCS: 11042

== ENCOUNTER 2024-04-21 13:03 | Outpatient (CLI) | payer MEDICARE, SELFPAY ==
--- OUTSIDE RECORDS SUMMARY | 2024-04-21 13:07 | XMS_ITS | Encounter Summary ---
Author Organization [facility] Address [address] [place] [address] Care Team Providers Care Imaging Clerk Name Role Phone Elsewhere, Pcp Primary Care Provider Unavailabl e Encounter Details Date Type Department Care Team (Latest Contact Info) Description 02/19/2024 Clinical Communication Department of Physical Medicine and Rehabilitation in [place], [place] [address] [place] [phone] Meenakshi Villarreal, AVTAR, OXYGEN EQUIPMENT AIDE, M.S. [address] [place] [phone] Social History Tobacco Use Types Packs/Day Years [...] often do you attend chur ch or church services? More than 4 times per year 11/24/2022 Do you belong to any clubs o r organizations such as sabianist groups, unions, fraternal or athletic groups, or [...] Assigned at Male 03/05/2022 8:00 AM CDT Legal Sex Male 4:57 PM CDT Gender Identity Male 12/11/2020 6:50 PM CDT Sexual Orientation Straight 12/11/2020 6: 50 PM CDT documented as of this encounter Plan of Treatment Upcoming Encounters Date Type Department Care Team (Latest Contact Info) Description 05/19/2024 1:00 PM BLACK ASH BURNER OPERATOR Telemedicine Department of Physical Medicine and Rehabilitation in [place], [place] [address] [place] [phone] Meenakshi Villarreal APRN, OXYGEN EQUIPMENT AIDE, M.S. [address] [place] [address] Discharge Disposition: Home or Self Care 05/25/2024 9:00 AM BLACK ASH BURNER OPERATOR Appointment Department of Laboratory Medicine and Pathology, [facility], in [place], [place] [address] [place] [address] Yuliana Flanagan P.A.-C. [address] [place] [phone] 05/25/2024 9:30 AM BLACK ASH BURNER OPERATOR Appointment Department of Radiology, [facility] in [place], [place] [address] [place] [address] Yuliana Flanagan P.A.-C. [address] [place] [phone] 05/25/2024 3:00 PM BLACK ASH BURNER OPERATOR Office Visit Department of Urology in [place], [place] [address] [place] [address] Yuliana Flanagan P.A.-C. [address] [place] [phone] documented as of this encounter Visit Diagnoses Diagnosis Abnormal Gait Non Orthopedic- Primary Paraplegia (HCC) Spasticity documented in this encounter Care Teams Imaging Clerk Relationship Specialty Start Date End Date Elsewhere, Pcp PCP - General Family Medicine 02/28/22 documented as of this encounter
--- OUTSIDE RECORDS SUMMARY | 2024-04-21 13:07 | XMS_ITS | Encounter Summary ---
Author Organization [facility] Address [address] [place] [address] Care Team Providers Care Oil And Gas Well Treatment Operator Name Role Phone Elsewhere, Pcp Primary Care Provider Unavailabl e Reason for Referral * Outpatient (Routine) - Authorized Specialty Diagnoses / Procedures Referred By Yaron t Referred To Contact Vascular Medicine Diagnoses Paraplegia (HCC) Abnormal Gait Non Orthopedic Pressure Injury (Ulcer) Of Unspecified Site Unspecified Stage Meenakshi Villarreal APRN, CNS, M.S. [address] [place] [phone] Phone: tel: fax: [facility] Referral ID Status Reason Start Date Expiration Date V isits Requested Visits Authorized [id number] Authorized 03/12/2024 09/11/2025 1 1 Reason for Visit * Reason Onset Date Comments Referral Requested 03/12/2024 Encounter Details Date Type Department Care Team (Latest Contact Info) Description 03/12/2024 Clinical Communication Department of Physical Medicine and Rehabilitation in [place], [place] [address] [place] [address] Meenakshi Villarreal APRN, MARY, M.S. [address] [place] [phone] Referral Requested Social History Tobacco Use Types [...] any clubs o r organizations such as confucianist groups, unions, fraternal or athletic groups, or [...] and heating? Not hard at all 11/24/2022 [facility] of Occupat ional Health - Occupational Stress [...] (Latest Contact Info) Description 05/19/2024 1:00 PM SENIOR CARE SPECIALIST Telemedicine Department of Physical Medicine and Rehabilitation in [place], [place] [address] [place] [address] Meenakshi Villarreal APRN, JEWELRY CASTING MODEL MAKER APPRENTICE, M.S. [address] [place] [phone] Discharge Disposition: Home or Self Care 05/25/2024 9:00 AM SENIOR CARE SPECIALIST Appointment Department of Laboratory Medicine and Pathology, [facility] in [place], [place] [address] [place] [phone] Yuliana Flanagan, P.A.-C. [address] [place] [phone] 05/25/2024 9:30 AM SENIOR CARE SPECIALIST Appointment Department of Radiology, [facility] in [place], [place] [address] [place] [phone] Yuliana Flanagan, P.A.-C. [address] [place] [phone] 05/25/2024 3:00 PM SENIOR CARE SPECIALIST Office Visit Department of Urology in [place], [place] [address] [place] [phone] Yuliana Flanagan, P.A.-CGeno [address] [place] [phone] Scheduled Referrals Name Type Priority Associated Diagnoses [...] Orthopedic documented in this encounter Care Teams Oil And Gas Well Treatment Operator Relationship Specialty Start Date End Date Elsewhere, Pcp PCP - General Family Medicine 02/28/22 documented as of this encounter
--- OUTSIDE RECORDS SUMMARY | 2024-04-21 13:07 | XMS_ITS | Encounter Summary ---
Author Organization [facility] Address [address] [place] [address] Care Team Providers Care Pinsetter Mechanic Helper Name Role Phone Elsewhere, Pcp Primary [...] week 11/24/2022 How often do you attend [facility] or taoist services? More than 4 times per year 11/24/2022 Do you belong to any clubs o r organizations such as religious groups, unions, fraternal or athletic groups, or [...] and heating? Not hard at all 11/24/2022 [facility] of Occupat ional Health [...] (Latest Contact Info) Description 05/19/2024 1:00 PM LOADING SUPERVISOR Telemedicine Department of Physical Medicine and Rehabilitation in [place], [place] [address] [place] [phone] Meenakshi Villarreal APRN, ASSET ANALYST, M.S. [address] [place] [phone] Discharge Disposition: Home or Self Care 05/25/2024 9:00 AM LOADING SUPERVISOR Appointment Department of Laboratory Medicine and Pathology, [facility], in [place], [place] [address] [place] [phone] Yuliana Flanagan, PAlfonso [address] [place] [phone] 05/25/2024 9:30 AM LOADING SUPERVISOR Appointment Department of Radiology, [facility], in [place], [place] [address] [place] [address] Yuliana Flanagan P.A.-C. [address] [place] [address] 05/25/2024 3:00 PM LOADING SUPERVISOR Office Visit Department of Urology in [place], [place] [address] [place] [address] Yuliana Flanagan P.A.-Avel [address] [place] [address] documented as of this encounter Procedures Procedure [...] found on the encounter that produced images. us Provider Not In System IMG NON RAD IMAGING PROCE DURES Final Result IIMS NA documented in this encounter Visit Diagnoses Not on filedocumented in this encounter Care Teams Pinsetter Mechanic Helper Relationship Specialty Start Date End Date Elsewhere, Pcp PCP - General Family Medicine 02/28/22 documented as of this encounter
--- OUTSIDE RECORDS SUMMARY | 2024-04-21 13:07 | XMS_ITS | Clinical Summary ---
Author Organization [facility] Address [address] [place] [address] Care Team Providers Care Gardener Florist Name Role Phone Elsewhere, Pcp Primary Care Provider Unavailabl e Source Comments Patient records contain information from all sites at [facility]. For routine questions regarding patient records, call [phone] during business hours, M-F 8:00 AM - 5:00 PM Central Time. Record requests for emergency care only can be directed to [phone] at any time.[facility] Allergies Active Allergy Reactions Criticality Noted Date Comments Ragweed Other (see comments) 11/24/2014 Sneezing, itchy eyes Medications * This document contains information received from the source organization and may not represent a complete record from that organization. aspirin [address] tablet Take 81 [...] Ancillary Procedure Department of Vascular Surgery 03/16/2024 [facility] [address] [place] [address] Karime Garduno, AVTAR, C.N.P., D.N.P. 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 Referral Requested 02/19/2024 Clinical Communication Department of Physical Medicine and Rehabilitation in [address] [phone] Meenakshi Villarreal APRN, MARY, M.S. from Last [...] do you attend [facility] or zoroastrian services? More than 4 times per year [...] and heating? Not hard at all 11/24/2022 [facility] of Occupat ional Health - [...] place to sleep or slept in a care home (including now)? No 11/24/2022 Nutrition Answer [...] (Latest Contact Info) Description 05/19/2024 1:00 PM INTERNATIONAL MARKETING COORDINATOR Telemedicine Department of Physical Medicine and Rehabilitation in [address] [phone] Meenakshi Villarreal APRN, HOME COORDINATOR, M.S. [address] [place] [phone] Discharge Disposition: Home or Self Care 05/25/2024 9:00 AM INTERNATIONAL MARKETING COORDINATOR Appointment Department of Laboratory Medicine and Pathology, [facility], in [place], [place] [address] [place] [address] Yuliana Flanagan PGenoA.-CGeno [address] [place] [phone] 05/25/2024 9:30 AM INTERNATIONAL MARKETING COORDINATOR Appointment Department of Radiology, [facility], in [place], [place] [address] [place] [phone] Yuliana Flanagan P.AGeno-CGeno [address] [place] [phone] 05/25/2024 3:00 PM INTERNATIONAL MARKETING COORDINATOR Office Visit Department of Urology in [place], [place] [address] [place] [address] Yuliana Flanagan, PGenoA.-CGeno [address] [place] [phone] Health Maintenance Due Date Last Done Comments [...] Risk Screen (Annual) 07/08/2023 COVID-19 Vaccine ( - season) 2024 Influenza Vaccine (#1) 2024 [...] NON RAD IMAGING PROCE DURES Final Result IIUT NA * (ABNORMAL) Basic Metabolic Panel (05/03/2023 [...] 2:09 PM CDT 05/03/2023 2:54 PM CDT us Yuliana Flanagan P.A.-C. LAB BLOOD ADD-ON Final R esult [facility] [address] [place] [address], [place] DTL [facility] [address] [place] [address] * CT Abdomen Pelvis without IV Contrast [...] José Miguel Chi M.D. IMG CT PROCEDURES Final Resu lt from Last 3 Months or Most Recently Relevant to Health Maintenance Insurance [employer] Care Teams Gardener Florist Relationship Specialty Start Date End Date Elsewhere, Pcp PCP - General Family Medicine 02/28/22
--- OUTSIDE RECORDS SUMMARY | 2024-04-21 13:07 | XMS_ITS | Referral Summary ---
Author Organization [facility] Address [address] [place] [address] Care Team Providers Care Swahili Teacher Name Role Phone Elsewhere, Pcp Primary Care Provider Unavailabl e Source Comments Patient records contain information from all sites at [facility]. For routine questions regarding patient records, call [phone] during business hours, M-F 8:00 AM - 5:00 PM Central Time. Record requests for emergency care only can be directed to [phone] at any time.[facility] Encounters Date Type Department Care Team Description 03/16/2024 Ancillary Procedure Department of Vascular Surgery 03/16/[address] [address] Karime Garduno APRN, C.N.P., D.N.P. 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 Referral Requested 02/19/2024 Clinical Communication Department of Physical Medicine and Rehabilitation in [address] [phone] Meenakshi Villarreal APRN, COGNOS ARCHITECT, M.S. from Last 3 Months Allergies Active [...] How often do you attend [facility] or confucianist services? More than 4 times [...] and heating? Not hard at all 11/24/2022 [facility] of Occupat ional Health - Occupational [...] (Latest Contact Info) Description 05/19/2024 1:00 PM CORPORATION SECRETARY Telemedicine Department of Physical Medicine and Rehabilitation in [place], [place] [address] [place] [phone] Meenakshi Villarreal APRN, COGNOS ARCHITECT, M.S. [address] [place] [address] Discharge Disposition: Home or Self Care 05/25/2024 9:00 AM CORPORATION SECRETARY Appointment Department of Laboratory Medicine and Pathology, [facility] in [place], [place] [address] [place] [address] Yuliana Flanagan P.A.-Avel [address] [place] [phone] 05/25/2024 9:30 AM CORPORATION SECRETARY Appointment Department of Radiology, [facility] in [place], [place] [address] [place] [address] Yuliana Flanagan P.A.-Avel [address] [place] [phone] 05/25/2024 3:00 PM CORPORATION SECRETARY Office Visit Department of Urology in [place], [place] [address] [place] [phone] Yuliana Flanagan P.A.-CGeno [address] [place] [phone] Procedures Procedure Name Priority Date/Time Associated Diagnosis [...] IMAGING PROCE DURES Final Result IIMS NA * (ABNORMAL) Basic Metabolic Panel [...] P.A.-C. LAB BLOOD ADD-ON Final R esult [facility] [address] [place] [address], [place] DTL [facility] [address] [place] [address] * CT Abdomen Pelvis without IV Contrast [...] José Miguel Chi M.D. IMJordan CT PROCEDURES Final Resu lt from Last 3 Months or Most Recently Relevant to Health Maintenance Insurance [facility] Care Teams Swahili Teacher Relationship Specialty Start Date End Date Elsewhere, Pcp PCP - General Family Medicine 02/28/22
--- OUTSIDE RECORDS SUMMARY | 2024-04-21 13:07 | XMS_ITS ---
Author Organization [facility] Address [address] [place] [address] Care Team Providers Care Instructor Substitute Cosmetology Name Role Phone Unavailable Unavailable Unavailable Surgery Details Not on file Complications Check Surgery Details section. Procedure Estimated Blood Loss Check Surgery Details section. Procedure Findings Check Surgery Details section. Procedure Specimens Taken Check Surgery Details section.
--- OUTSIDE RECORDS SUMMARY | 2024-04-21 13:07 | XMS_ITS | Encounter Summary ---
Author Organization [facility] Address [address] [place] [address] Care Team Providers Care Technology Professional Name Role Phone Elsewhere, Pcp Primary Care Provider Unavailabl e Reason for Referral * Outpatient (Routine) - Authorized Specialty Diagnoses / Procedures Referred By Contbradford t Referred To Contact Vascular Surgery Diagnoses Non-Pressure Chronic Ulcer Of Other Part Of Left Foot With Unspecified Severity (HCC) Karime Garduno APRN, C.N.P., D.N.P. [address] [place] [address] Phone: tel: fax: [facility] Referral ID Status Reason Start Date Expiration Date V isits Requested Visits Authorized [id number] Authorized 03/16/2024 09/15/2025 1 1 Encounter Details Date Type Department Care Team (Late st Contact Info) Description 03/16/2024 [facility] [address] [place] [address] Karime Garduno APRN, C.N.P., D.N.P. [address] [place] [phone] Non-Pressure Chronic Ulcer Of Other Part Of [...] How often do you attend chur or nondenominational services? More than 4 times per year [...] and heating? Not hard at all 11/24/2022 [facility] - Occupational Stress Questionnaire Answer Date [...] (Latest Contact Info) Description 05/19/2024 1:00 PM FUNCTIONAL DIRECTOR Telemedicine Department of Physical Medicine and Rehabilitation in [place], [place] [address] [place] [phone] Meenakshi Villarreal APRN, LOCATION ANALYST, M.S. [address] [place] [phone] Discharge Disposition: Home or Self Care 05/25/2024 9:00 AM FUNCTIONAL DIRECTOR Appointment Department of Laboratory Medicine and Pathology, [facility] in [place], [place] [address] [place] [phone] Yuliana Flanagan, P.A.-C. [address] [place] [phone] 05/25/2024 9:30 AM FUNCTIONAL DIRECTOR Appointment Department of Radiology, [facility] in [place], [place] [address] [place] [phone] Yuliana Flanagan, P.A.-C. [address] [place] [phone] 05/25/2024 3:00 PM FUNCTIONAL DIRECTOR Office Visit Department of Urology in [place], [place] [address] [place] [phone] Yuliana Flanagan, P.A.-C. [address] [place] [phone] Scheduled Referrals Name Type Priority Associated Diagnoses Orde r Schedule Vascular Surgery Referral Outpatient Referral Routine Non-Pressure Chronic Ulcer Of Other Part Of Left Foot With Unspecified Severity (HCC) Expected: 03/16/2024 (Approximate), Expires: 06/15/2025 documented as of this encounter Visit Diagnoses Diagnosis Non-Pressure Chronic Ulcer Of Other Part Of Left Foot With Unspecified Severity (HCC)- Primary documented in this encounter Care Teams Technology Professional Relationship Specialty Start Date End Date Elsewhere, Pcp PCP - General Family Medicine 02/28/22 documented as of this encounter
--- OUTSIDE RECORDS SUMMARY | 2024-04-21 13:07 | XMS_ITS | Encounter Summary ---
Author Organization [facility] Address [address] [place] [address] Care Team Providers Care Story Writer Name Role Phone Elsewhere, Pcp Primary Care Provider Unavailabl e Reason for Referral * Outpatient (Routine) - Closed Specialty Diagnoses / Procedures Referred By Contact Referred To Contact Physical Medicine and Rehabilitation Diagnoses Stroke (HCC) Macario Villa M.D. Phone: tel: fax: [facility] Referral ID Status Reason Start Date Expiration Date Visits Re quested Visits Authorized [id number] Closed 08/26/2018 08/26/2019 1 1 STICS LEAD Encounter Details Date Type Department Care Team (Late st Contact Info) Description 08/26/2018 [facility] [address] [place] [address] Macario Villa M.D. [address] [place] [address] Stroke (HCC) (Primary Dx) Social History Tobacco [...] (Latest Contact Info) Description 05/19/2024 1:00 PM LOGISTICS LEAD Telemedicine Department of Physical Medicine and Rehabilitation in [place], [place] [address] [place] [phone] Meenakshi Villarreal APRN, IMMIGRATION CONSULTANT, M.S. [address] [place] [phone] Discharge Disposition: Home or Self Care 05/25/2024 9:00 AM LOGISTICS LEAD Appointment Department of Laboratory Medicine and Pathology, [facility] in [place], [place] [address] [place] [phone] Yuliana Flanagan, P.A.-C. [address] [place] [phone] 05/25/2024 9:30 AM LOGISTICS LEAD Appointment Department of Radiology, [facility] in [place], [place] [address] [place] [phone] Yuliana Flanagan, P.A.-CGeno [address] [place] [phone] 05/25/2024 3:00 PM LOGISTICS LEAD Office Visit Department of Urology in [place], [place] [address] [place] [phone] Yuliana Flanagan, P.A.-CGeno [address] [place] [phone] Scheduled Referrals Name Type Priority Associated Diagnoses Orde r Schedule Neurology Referral Outpatient Referral Routine Stroke (HCC) Expected: 08/26/2018 (Approximate), Expires: 08/26/2021 documented as of this encounter Visit Diagnoses Diagnosis Stroke (HCC)- Primary documented in this encounter Care Teams Story Writer Relationship Specialty Start Date End Date Elsewhere, Pcp PCP - General Family Medicine 02/28/22 documented as of this encounter
--- OUTSIDE RECORDS SUMMARY | 2024-04-21 13:07 | XMS_ITS | Encounter Summary ---
Author Organization [facility] Address [address] [place] [address] Care Team Providers Care Fagoter Name Role Phone Elsewhere, Pcp Primary Care Provider Unavailabl e Encounter Details Date Type Department Care Team (Late st Contact Info) Description 09/12/2018 [facility] [address] [place] [address] Erma Morejon M.D. 1999 [place] [address] Social History Tobacco Use Types Packs/Day Years [...] (Latest Contact Info) Description 05/19/2024 1:00 PM PORTFOLIO ANALYST Telemedicine Department of Physical Medicine and Rehabilitation in [place], [place] [address] [place] [phone] Meenakshi Villarreal APRN, HOGSHEAD PRESS OPERATOR, M.S. [address] [place] [phone] Discharge Disposition: Home or Self Care 05/25/2024 9:00 AM PORTFOLIO ANALYST Appointment Department of Laboratory Medicine and Pathology, [facility], in [place], [place] [address] [place] [address] Yuliana Flanagan P.A.-C. [address] [place] [address] 05/25/2024 9:30 AM PORTFOLIO ANALYST Appointment Department of Radiology, [facility], in [place], [place] [address] [place] [address] Yuliana Flanagan P.A.-C. [address] [place] [phone] 05/25/2024 3:00 PM PORTFOLIO ANALYST Office Visit Department of Urology in [place], [place] [address] [place] [address] Yuliana Flanagan P.A.-C. [address] [place] [phone] documented as of this encounter Visit Diagnoses Not on filedocumented in this encounter Care Teams Fagoter Relationship Specialty Start Date End Date Elsewhere, Pcp PCP - General Family Medicine 02/28/22 documented as of this encounter
== END 2024-04-21 13:04 | disposition home or self-care (01) ==
LOC: WOUND 13:03
PROVIDERS: PCP Internal Medicine; Visit Provider Nurse Practitioner Family
DX: R26.89 Other abnormalities of gait and mobility (principal); G99.0 Autonomic neuropathy in diseases classified elsewhere; L97.528 Non-pressure chronic ulcer of other part of left foot with other specified severity
CPT/HCPCS: 97597

== ENCOUNTER 2024-04-28 12:53 | Outpatient (CLI) | payer MEDICARE, SELFPAY ==
--- OUTSIDE RECORDS SUMMARY | 2024-04-28 12:55 | XMS_ITS | Encounter Summary ---
Author Organization [facility] Address [address] [place] [address] Care Team Providers Care Envelope Sealer Operator Name Role Phone Elsewhere, Pcp Primary Care Provider Unavailabl e Reason for Referral * Outpatient (Routine) - Authorized Specialty Diagnoses / Procedures Referred By Contbradford t Referred To Contact Vascular Surgery Diagnoses Non-Pressure Chronic Ulcer Of Other Part Of Left Foot With Unspecified Severity (HCC) Karime Garduno APRN, C.N.P., D.N.P. [address] [place] [address] Phone: tel: fax: [facility] Referral ID Status Reason Start Date Expiration Date V isits Requested Visits Authorized [id number] Authorized 03/16/2024 09/15/2025 1 1 Encounter Details Date Type Department Care Team (Late st Contact Info) Description 03/16/2024 [facility] [address] [place] [address] Karime Garduno APRN, C.N.P., D.N.P. [address] [place] [phone] Non-Pressure Chronic Ulcer Of Other Part Of [...] How often do you attend chur or amish services? More than 4 times per year 11/24/2022 Do you belong to any clubs o r organizations such as jew groups, unions, fraternal or athletic groups, or [...] and heating? Not hard at all 11/24/2022 [facility] - Occupational Stress Questionnaire Answer Date [...] now)? No 11/24/2022 Nutrition Answer Date Recorded On average, how many serving s of [...] (Latest Contact Info) Description 05/19/2024 1:00 PM PROPERTY WORKER Telemedicine Department of Physical Medicine and Rehabilitation in [place], [place] [address] [place] [phone] Meenakshi Villarreal APRN, COMPANION CAREGIVER, M.S. [address] [place] [phone] Discharge Disposition: Home or Self Care 05/25/2024 9:00 AM PROPERTY WORKER Appointment Department of Laboratory Medicine and Pathology, [facility] in [place], [place] [address] [place] [phone] Yuliana Flanagan, P.A.-C. [address] [place] [phone] 05/25/2024 9:30 AM PROPERTY WORKER Appointment Department of Radiology, [facility] in [place], [place] [address] [place] [phone] Yuliana Flanagan, P.A.-C. [address] [place] [phone] 05/25/2024 3:00 PM PROPERTY WORKER Office Visit Department of Urology in [place], [place] [address] [place] [phone] Yuliana Flanagan, P.A.-CGeno [address] [place] [phone] Scheduled Referrals Name Type Priority Associated Diagnoses Orde r Schedule Vascular Surgery Referral Outpatient Referral Routine Non-Pressure Chronic Ulcer Of Other Part Of Left Foot With Unspecified Severity (HCC) Expected: 03/16/2024 (Approximate), Expires: 06/15/2025 documented as of this encounter Visit Diagnoses Diagnosis Non-Pressure Chronic Ulcer Of Other Part Of Left Foot With Unspecified Severity (HCC)- Primary documented in this encounter Care Teams Envelope Sealer Operator Relationship Specialty Start Date End Date Elsewhere, Pcp PCP - General Family Medicine 02/28/22 documented as of this encounter
--- OUTSIDE RECORDS SUMMARY | 2024-04-28 12:55 | XMS_ITS | Encounter Summary ---
Author Organization [facility] Address [address] [place] [address] Care Team Providers Care Roving Frame Tender Name Role Phone Elsewhere, Pcp Primary Care Provider Unavailabl e Reason for Referral * Outpatient (Routine) - Authorized Specialty Diagnoses / Procedures Referred By Yaron t Referred To Contact Vascular Medicine Diagnoses Paraplegia (HCC) Abnormal Gait Non Orthopedic Pressure Injury (Ulcer) Of Unspecified Site Unspecified Stage Meenakshi Villarreal APRN, CNS, M.S. [address] [place] [phone] Phone: tel: fax: [facility] Referral ID Status Reason Start Date Expiration Date V isits Requested Visits Authorized [id number] Authorized 03/12/2024 09/11/2025 1 1 Reason for Visit * Reason Onset Date Comments Referral Requested 03/12/2024 Encounter Details Date Type Department Care Team (Latest Contact Info) Description 03/12/2024 Clinical Communication Department of Physical Medicine and Rehabilitation in [place], [place] [address] [place] [address] Meenakshi Villarreal APRN, MARY, M.S. [address] [place] [phone] Referral Requested Social History Tobacco Use Types [...] How often do you attend chur or mu-ism services? More than 4 times per year 11/24/2022 Do you belong to any clubs o r organizations such as buddhism groups, unions, fraternal or athletic groups, or [...] and heating? Not hard at all 11/24/2022 [facility] of Occupat ional Health - Occupational Stress [...] place to sleep or slept in a retirement (including now)? No 11/24/2022 Nutrition Answer Date [...] (Latest Contact Info) Description 05/19/2024 1:00 PM MAMMOGRAPHY SUPERVISOR Telemedicine Department of Physical Medicine and Rehabilitation in [place], [place] [address] [place] [address] Meenakshi Villarreal APRN, CANDLE MAKING SUPERVISOR, M.S. [address] [place] [phone] Discharge Disposition: Home or Self Care 05/25/2024 9:00 AM MAMMOGRAPHY SUPERVISOR Appointment Department of Laboratory Medicine and Pathology, [facility] in [place], [place] [address] [place] [phone] Yuliana Flanagan, P.A.-C. [address] [place] [phone] 05/25/2024 9:30 AM MAMMOGRAPHY SUPERVISOR Appointment Department of Radiology, [facility] in [place], [place] [address] [place] [phone] Yuliana Flanagan, P.A.-CGeno [address] [place] [phone] 05/25/2024 3:00 PM MAMMOGRAPHY SUPERVISOR Office Visit Department of Urology in [place], [place] [address] [place] [phone] Yuliana Flanagan, P.A.-CGeno [address] [place] [phone] Scheduled Referrals Name Type Priority Associated Diagnoses [...] Orthopedic documented in this encounter Care Teams Roving Frame Tender Relationship Specialty Start Date End Date Elsewhere, Pcp PCP - General Family Medicine 02/28/22 documented as of this encounter
--- OUTSIDE RECORDS SUMMARY | 2024-04-28 12:55 | XMS_ITS | Encounter Summary ---
Author Organization [facility] Address [address] [place] [address] Care Team Providers Care Assistant Analyst Name Role Phone Elsewhere, Pcp Primary Care Provider Unavailabl e Reason for Referral * Outpatient (Routine) - Closed Specialty Diagnoses / Procedures Referred By Contact Referred To Contact Physical Medicine and Rehabilitation Diagnoses Stroke (HCC) Macario Villa M.D. Phone: tel: fax: [facility] Referral ID Status Reason Start Date Expiration Date Visits Re quested Visits Authorized [id number] Closed 08/26/2018 08/26/2019 1 1 P OR CALF GRADER Encounter Details Date Type Department Care Team (Late st Contact Info) Description 08/26/2018 [facility] [address] [place] [address] Macario Villa M.D. [address] [place] [address] Stroke (HCC) (Primary Dx) Social History Tobacco [...] (Latest Contact Info) Description 05/19/2024 1:00 PM SHEEP OR CALF GRADER Telemedicine Department of Physical Medicine and Rehabilitation in [place], [place] [address] [place] [phone] Meenakshi Villarreal APRN, BRAND AMBASSADORS PROMOTIONAL SALES, M.S. [address] [place] [phone] Discharge Disposition: Home or Self Care 05/25/2024 9:00 AM SHEEP OR CALF GRADER Appointment Department of Laboratory Medicine and Pathology, [facility] in [place], [place] [address] [place] [phone] Yuliana Flanagan, P.A.-C. [address] [place] [phone] 05/25/2024 9:30 AM SHEEP OR CALF GRADER Appointment Department of Radiology, [facility] in [place], [place] [address] [place] [phone] Yuliana Flanagan, P.A.-CGeno [address] [place] [phone] 05/25/2024 3:00 PM SHEEP OR CALF GRADER Office Visit Department of Urology in [place], [place] [address] [place] [phone] Yuliana Flanagan, P.A.-CGeno [address] [place] [phone] Scheduled Referrals Name Type Priority Associated Diagnoses Orde r Schedule Neurology Referral Outpatient Referral Routine Stroke (HCC) Expected: 08/26/2018 (Approximate), Expires: 08/26/2021 documented as of this encounter Visit Diagnoses Diagnosis Stroke (HCC)- Primary documented in this encounter Care Teams Assistant Analyst Relationship Specialty Start Date End Date Elsewhere, Pcp PCP - General Family Medicine 02/28/22 documented as of this encounter
--- OUTSIDE RECORDS SUMMARY | 2024-04-28 12:55 | XMS_ITS | Referral Summary ---
Author Organization [facility] Address [address] [place] [address] Care Team Providers Care Crusher Loader Equipment Operator Name Role Phone Elsewhere, Pcp Primary Care Provider Unavailabl e Source Comments Patient records contain information from all sites at [facility]. For routine questions regarding patient records, call [phone] during business hours, M-F 8:00 AM - 5:00 PM Central Time. Record requests for emergency care only can be directed to [phone] at any time.[facility] Encounters Date Type Department Care Team Description 03/16/2024 Ancillary Procedure Department of Vascular Surgery 03/16/[address] [address] Karime Garduno APRN, C.N.P., D.N.P. Non-Pressure Chronic Ulcer Of Other Part Of Left Foot With Unspecified Severity (HCC) (Primary Dx) 03/12/2024 Clinical Communication Department of Physical Medicine and Rehabilitation in [address] [phone] Meenakshi Villarreal APRN, MARY, M.S. Referral Requested 02/19/2024 Clinical Communication Department of Physical Medicine and Rehabilitation in [address] [phone] Meenakshi Villarreal APRN, CRIME SCENE EXAMINER, M.S. from Last 3 Months Allergies Active [...] How often do you attend [facility] or evangelical services? More than 4 times per year [...] (Latest Contact Info) Description 05/19/2024 1:00 PM CHEF KITCHEN MANAGER Telemedicine Department of Physical Medicine and Rehabilitation in [place], [place] [address] [place] [phone] Meenakshi Villarreal APRN, CRIME SCENE EXAMINER, M.S. [address] [place] [address] Discharge Disposition: Home or Self Care 05/25/2024 9:00 AM CHEF KITCHEN MANAGER Appointment Department of Laboratory Medicine and Pathology, [facility] in [place], [place] [address] [place] [address] Yuliana Flanagan P.A.-C. [address] [place] [phone] 05/25/2024 9:30 AM CHEF KITCHEN MANAGER Appointment Department of Radiology, [facility] in [place], [place] [address] [place] [phone] Yuliana Flanagan P.A.-C. [address] [place] [phone] 05/25/2024 3:00 PM CHEF KITCHEN MANAGER Office Visit Department of Urology in [place], [place] [address] [place] [phone] Yuliana Flanagan P.A.-C. [address] [place] [phone] Procedures Procedure Name Priority Date/Time Associated Diagnosis [...] In System IMG NON RAD IMAGING PROCE WALTES Final Result IIMS NA * (ABNORMAL) Basic [...] P.A.-C. LAB BLOOD ADD-ON Final R esult [facility] [address] [place] [address], [facility] [address] [place] [address] * CT Abdomen Pelvis without IV Contrast [...] thickening ofthe urinary bladder. Bladder contains air. us José Miguel Chi M.D. IMJordan CT PROCEDURES Final Resu lt from Last 3 Months or Most Recently Relevant to Health Maintenance Insurance [facility] Care Teams Crusher Loader Equipment Operator Relationship Specialty Start Date End Date Elsewhere, Pcp PCP - General Family Medicine 02/28/22
--- OUTSIDE RECORDS SUMMARY | 2024-04-28 12:55 | XMS_ITS | Clinical Summary ---
Author Organization [facility] Address [address] [place] [address] Care Team Providers Care Rn Documentation Name Role Phone Elsewhere, Pcp Primary Care Provider Unavailabl e Source Comments Patient records contain information from all sites at [facility]. For routine questions regarding patient records, call [phone] during business hours, M-F 8:00 AM - 5:00 PM Central Time. Record requests for emergency care only can be directed to [phone] at any time.[facility] Allergies Active Allergy Reactions Criticality Noted Date [...] Ancillary Procedure Department of Vascular Surgery 03/16/2024 [facility] [address] [place] [address] Karime Garduno, AVTAR, C.N.P., D.N.P. 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 Referral Requested 02/19/2024 Clinical Communication Department of Physical Medicine and Rehabilitation in [address] [phone] Meenakshi Villarreal APRN, MARY, M.S. from Last [...] week 11/24/2022 How often do you attend [facility] or jain services? More than 4 times per year 11/24/2022 Do you belong to any clubs o r organizations such as druze groups, unions, fraternal or athletic groups, or [...] and heating? Not hard at all 11/24/2022 [facility] of Occupat ional Health - Occupational Stress [...] (Latest Contact Info) Description 05/19/2024 1:00 PM MULTIFOLD OPERATOR Telemedicine Department of Physical Medicine and Rehabilitation in [place], [place] [address] [place] [address] Meenakshi Villarreal APRN, STAMPING PRESS OPERATOR, M.S. [address] [place] [address] Discharge Disposition: Home or Self Care 05/25/2024 9:00 AM MULTIFOLD OPERATOR Appointment Department of Laboratory Medicine and Pathology, [facility], in [place], [place] [address] [place] [address] Yuliana Flanagan P.A.-Avel [address] [place] [phone] 05/25/2024 9:30 AM MULTIFOLD OPERATOR Appointment Department of Radiology, [facility], in [place], [place] [address] [place] [address] Yuliana Flanagan P.A.-Avel [address] [place] [phone] 05/25/2024 3:00 PM MULTIFOLD OPERATOR Office Visit Department of Urology in [place], [place] [address] [place] [address] Yuliana Flanagan PGenoAGeno-CGeno [address] [place] [phone] Health Maintenance Due Date Last Done Comments [...] NON RAD IMAGING PROCE DURES Final Result IIWA NA * (ABNORMAL) Basic Metabolic Panel (05/03/2023 [...] P.A.-C. LAB BLOOD ADD-ON Final R esult [facility] [address] [place] [address], [facility] [address] [place] [address] * CT Abdomen Pelvis without IV Contrast [...] Bladder contains air. José Miguel Chi M.D. IM CT PROCEDURES Final Resu lt from Last 3 Months or Most Recently Relevant to Health Maintenance Insurance [facility] Care Teams Rn Documentation Relationship Specialty Start Date End Date Elsewhere, Pcp PCP - General Family Medicine 02/28/22
--- OUTSIDE RECORDS SUMMARY | 2024-04-28 12:55 | XMS_ITS ---
Author Organization [facility] Address [address] [place] [address] Care Team Providers Care Territory Sales Representative Name Role Phone Unavailable Unavailable Unavailable Surgery Details Not on file Complications Check Surgery Details section. Procedure Estimated Blood Loss Check Surgery Details section. Procedure Findings Check Surgery Details section. Procedure Specimens Taken Check Surgery Details section.
--- OUTSIDE RECORDS SUMMARY | 2024-04-28 12:55 | XMS_ITS | Encounter Summary ---
Author Organization [facility] Address [address] [place] [address] Care Team Providers Care Rubber And Pounder Name Role Phone Elsewhere, Pcp Primary Care Provider Unavailabl e Encounter Details Date Type Department Care Team (Latest Contact Info) Description 02/19/2024 Clinical Communication Department of Physical Medicine and Rehabilitation in [place], [place] [address] [place] [phone] Meenakshi Villarreal, AVTAR, RN TELEPHONIC, M.S. [address] [place] [phone] Social History Tobacco Use Types Packs/Day Years [...] and heating? Not hard at all 11/24/2022 [facility] of Occupat ional Health - [...] (Latest Contact Info) Description 05/19/2024 1:00 PM FRANCHISE BUSINESS CONSULTANT Telemedicine Department of Physical Medicine and Rehabilitation in [place], [place] [address] [place] [phone] Meenakshi Villarreal APRN, RN TELEPHONIC, M.S. [address] [place] [address] Discharge Disposition: Home or Self Care 05/25/2024 9:00 AM FRANCHISE BUSINESS CONSULTANT Appointment Department of Laboratory Medicine and Pathology, [facility] in [place], [place] [address] [place] [address] Yuliana Flanagan P.A.-C. [address] [place] [phone] 05/25/2024 9:30 AM FRANCHISE BUSINESS CONSULTANT Appointment Department of Radiology, [facility] in [place], [place] [address] [place] [address] Yuliana Flanagan P.A.-C. [address] [place] [phone] 05/25/2024 3:00 PM FRANCHISE BUSINESS CONSULTANT Office Visit Department of Urology in [place], [place] [address] [place] [address] Yuliana Flanagan P.A.-C. [address] [place] [phone] documented as of this encounter Visit Diagnoses Diagnosis Abnormal Gait Non Orthopedic- Primary Paraplegia (HCC) Spasticity documented in this encounter Care Teams Rubber And Pounder Relationship Specialty Start Date End Date Elsewhere, Pcp PCP - General Family Medicine 02/28/22 documented as of this encounter
--- OUTSIDE RECORDS SUMMARY | 2024-04-28 12:55 | XMS_ITS | Encounter Summary ---
Author Organization [facility] Address [address] [place] [address] Care Team Providers Care Concrete Panel Installer Name Role Phone Elsewhere, Pcp Primary Care [...] often do you attend [facility] or tenriism services? More than 4 times [...] 11/24/2022 [facility] of Occupat ional Health - [...] (Latest Contact Info) Description 05/19/2024 1:00 PM LOAD MANAGER Telemedicine Department of Physical Medicine and Rehabilitation in [place], [place] [address] [place] [phone] Meenakshi Villarreal APRN, INSPECTION ENGINEER, M.S. [address] [place] [phone] Discharge Disposition: Home or Self Care 05/25/2024 9:00 AM LOAD MANAGER Appointment Department of Laboratory Medicine and Pathology, [facility], in [place], [place] [address] [place] [phone] Yuliana Flanagan, PYimi-Avel [address] [place] [phone] 05/25/2024 9:30 AM LOAD MANAGER Appointment Department of Radiology, [facility], in [place], [place] [address] [place] [address] Yuliana Flanagan P.A.-C. [address] [place] [phone] 05/25/2024 3:00 PM LOAD MANAGER Office Visit Department of Urology in [place], [place] [address] [place] [address] Yuliana Flanagan P.A.-C. [address] [place] [phone] documented as of this encounter Procedures Procedure [...] on filedocumented in this encounter Care Teams Concrete Panel Installer Relationship Specialty Start Date End Date Elsewhere, Pcp PCP - General Family Medicine 02/28/22 documented as of this encounter
--- OUTSIDE RECORDS SUMMARY | 2024-04-28 12:55 | XMS_ITS | Clinical Summary ---
Author Organization [facility] Address [place], [place] [address] Care Team Providers Care Program Development Manager Name Role Phone Macario Villa MD [...] Recently Relevant to Health Maintenance Care Teams Program Development Manager Relationship Specialty Start Date End Date Macario Villa MD [address] [place] [address] PCP - General Emergency Medicine 02/22/16
--- OUTSIDE RECORDS SUMMARY | 2024-04-28 12:55 | XMS_ITS | Encounter Summary ---
Author Organization [facility] Address [address] [place] [address] Care Team Providers Care Bill Poster Installer Name Role Phone Elsewhere, Pcp Primary Care Provider Unavailabl e Encounter Details Date Type Department Care Team (Late st Contact Info) Description 09/12/2018 [facility] AND [facility] [address] [place] [address] Erma Morejon M.D. 1999 [place] [address] Social History Tobacco Use Types Packs/Day Years [...] (Latest Contact Info) Description 05/19/2024 1:00 PM SERVER CASHIER Telemedicine Department of Physical Medicine and Rehabilitation in [place], [place] [address] [place] [phone] Meenakshi Villarreal APRN, [employer]ER [employer], M.S. [address] [place] [phone] Discharge Disposition: Home or Self Care 05/25/2024 9:00 AM SERVER CASHIER Appointment Department of Laboratory Medicine and Pathology, [facility], in [place], [place] [address] [place] [address] Yuliana Flanagan P.A.-C. [address] [place] [phone] 05/25/2024 9:30 AM SERVER CASHIER Appointment Department of Radiology, [facility], in [place], [place] [address] [place] [address] Yuliana Flanagan P.A.-C. [address] [place] [phone] 05/25/2024 3:00 PM SERVER CASHIER Office Visit Department of Urology in [place], [place] [address] [place] [address] Yuliana Flanagan P.A.-C. [address] [place] [phone] documented as of this encounter Visit Diagnoses Not on filedocumented in this encounter Care Teams Bill Poster Installer Relationship Specialty Start Date End Date Elsewhere, Pcp PCP - General Family Medicine 02/28/22 documented as of this encounter
== END 2024-04-28 12:54 | disposition home or self-care (01) ==
LOC: WOUND 12:53
PROVIDERS: PCP Internal Medicine; Visit Provider Nurse Practitioner Family
DX: R26.89 Other abnormalities of gait and mobility (principal); G99.0 Autonomic neuropathy in diseases classified elsewhere; L97.522 Non-pressure chronic ulcer of other part of left foot with fat layer exposed
CPT/HCPCS: 97597

== ENCOUNTER 2024-05-05 13:24 | Outpatient (CLI) | payer MEDICARE, SELFPAY ==
--- OUTSIDE RECORDS SUMMARY | 2024-05-05 13:26 | XMS_ITS | Encounter Summary ---
Author Organization [facility] Address [address] [place] [address] Care Team Providers Care Drupal Php Developer Name Role Phone Elsewhere, Pcp Primary Care Provider Unavailabl e Reason for Referral * Outpatient (Routine) - Closed Specialty Diagnoses / Procedures Referred By Contact Referred To Contact Physical Medicine and Rehabilitation Diagnoses Stroke (HCC) Macario Villa M.D. Phone: tel: fax: [facility] Referral ID Status Reason Start Date Expiration Date Visits Re quested Visits Authorized [id number] Closed 08/26/2018 08/26/2019 1 1 RT KEEPER Encounter Details Date Type Department Care Team (Late st Contact Info) Description 08/26/2018 [facility] 1999 [place] [address] Macario Villa M.D. 1999 [place] [address] Stroke (HCC) (Primary Dx) Social History Tobacco [...] (Latest Contact Info) Description 05/19/2024 1:00 PM RESORT KEEPER Telemedicine Department of Physical Medicine and Rehabilitation in [place], [place] [address] [place] [phone] Meenakshi Villarreal APRN, PANTOGRAPHER, M.S. [address] [place] [phone] Discharge Disposition: Home or Self Care 05/25/2024 9:00 AM RESORT KEEPER Appointment Department of Laboratory Medicine and Pathology, [facility] in [place], [place] [address] [place] [phone] Yuliana Flanagan, P.A.-C. [address] [place] [phone] 05/25/2024 9:30 AM RESORT KEEPER Appointment Department of Radiology, [facility] in [place], [place] [address] [place] [phone] Yuliana Flanagan, P.A.-CGeno [address] [place] [phone] 05/25/2024 3:00 PM RESORT KEEPER Office Visit Department of Urology in [place], [place] [address] [place] [phone] Yuliana Flanagan, P.A.-CGeno [address] [place] [phone] Scheduled Referrals Name Type Priority Associated Diagnoses Orde r Schedule Neurology Referral Outpatient Referral Routine Stroke (HCC) Expected: 08/26/2018 (Approximate), Expires: 08/26/2021 documented as of this encounter Visit Diagnoses Diagnosis Stroke (HCC)- Primary documented in this encounter Care Teams Drupal Php Developer Relationship Specialty Start Date End Date Elsewhere, Pcp PCP - General Family Medicine 02/28/22 documented as of this encounter
--- OUTSIDE RECORDS SUMMARY | 2024-05-05 13:26 | XMS_ITS | Encounter Summary ---
Author Organization [facility] Address [address] [place] [address] Care Team Providers Care Bilingual Administrative Assistant Name Role Phone Elsewhere, Pcp Primary Care Provider Unavailabl e Reason for Referral * Outpatient (Routine) - Authorized Specialty Diagnoses / Procedures Referred By Contbradford t Referred To Contact Vascular Surgery Diagnoses Non-Pressure Chronic Ulcer Of Other Part Of Left Foot With Unspecified Severity (HCC) Karime Garduno APRN, C.N.P., D.N.P. [address] [place] [address] Phone: tel: fax: [facility] Referral ID Status Reason Start Date Expiration Date V isits Requested Visits Authorized [id number] Authorized 03/16/2024 09/15/2025 1 1 Encounter Details Date Type Department Care Team (Late st Contact Info) Description 03/16/2024 [facility] AND [facility] [address] [place] [address] Karime Garduno APRN, C.N.P., D.N.P. [address] [place] [phone] Non-Pressure Chronic Ulcer Of Other Part Of [...] How often do you attend chur or denominational services? More than 4 times per year [...] heating? Not hard at all 11/24/2022 [facility] - Occupational Stress Questionnaire Answer Date [...] (Latest Contact Info) Description 05/19/2024 1:00 PM NEURODIAGNOSTIC TECHNOLOGIST Telemedicine Department of Physical Medicine and Rehabilitation in [place], [place] [address] [place] [phone] Meenakshi Villarreal APRN, GREENHOUSE SPECIALIST, M.S. [address] [place] [phone] Discharge Disposition: Home or Self Care 05/25/2024 9:00 AM NEURODIAGNOSTIC TECHNOLOGIST Appointment Department of Laboratory Medicine and Pathology, [facility] in [place], [place] [address] [place] [phone] Yuliana Flanagan, P.A.-C. [address] [place] [phone] 05/25/2024 9:30 AM NEURODIAGNOSTIC TECHNOLOGIST Appointment Department of Radiology, [facility] in [place], [place] [address] [place] [phone] Yuliana Flanagan, P.A.-C. [address] [place] [phone] 05/25/2024 3:00 PM NEURODIAGNOSTIC TECHNOLOGIST Office Visit Department of Urology in [place], [place] [address] [place] [phone] Yuliana Flanagan, P.A.-CGeno [address] [place] [phone] Scheduled Referrals Name Type Priority Associated Diagnoses Orde r Schedule Vascular Surgery Referral Outpatient Referral Routine Non-Pressure Chronic Ulcer Of Other Part Of Left Foot With Unspecified Severity (HCC) Expected: 03/16/2024 (Approximate), Expires: 06/15/2025 documented as of this encounter Visit Diagnoses Diagnosis Non-Pressure Chronic Ulcer Of Other Part Of Left Foot With Unspecified Severity (HCC)- Primary documented in this encounter Care Teams Bilingual Administrative Assistant Relationship Specialty Start Date End Date Elsewhere, Pcp PCP - General Family Medicine 02/28/22 documented as of this encounter
--- OUTSIDE RECORDS SUMMARY | 2024-05-05 13:26 | XMS_ITS | Referral Summary ---
Author Organization [facility] Address [address] [place] [address] Care Team Providers Care Clinical Research Associate Name Role Phone Elsewhere, Pcp Primary Care Provider Unavailabl e Source Comments Patient records contain information from all sites at [facility]. For routine questions regarding patient records, call [phone] during business hours, M-F 8:00 AM - 5:00 PM Central Time. Record requests for emergency care only can be directed to [phone] at any time.[facility] Encounters Date Type Department Care Team Description 03/16/2024 Ancillary Procedure Department of Vascular Surgery 03/16/[address] [address] Karime Garduno APRN, C.N.P., D.N.P. 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 Referral Requested 02/19/2024 Clinical Communication Department of Physical Medicine and Rehabilitation in [address] [phone] Meenakshi Villarreal APRN, AUTO BODY SHOP MANAGER, M.S. from Last 3 Months Allergies Active [...] How often do you attend [facility] or hinduism services? More than 4 [...] and heating? Not hard at all 11/24/2022 [facility] of Occupat ional Health [...] (Latest Contact Info) Description 05/19/2024 1:00 PM FURNITURE POLISHER Telemedicine Department of Physical Medicine and Rehabilitation in [place], [place] [address] [place] [phone] Meenakshi Villarreal APRN, AUTO BODY SHOP MANAGER, M.S. [address] [place] [address] Discharge Disposition: Home or Self Care 05/25/2024 9:00 AM FURNITURE POLISHER Appointment Department of Laboratory Medicine and Pathology, [facility] in [place], [place] [address] [place] [address] Yuliana Flanagan P.A.-C. [address] [place] [phone] 05/25/2024 9:30 AM FURNITURE POLISHER Appointment Department of Radiology, [facility] in [place], [place] [address] [place] [address] Yuliana Flanagan P.A.-C. [address] [place] [phone] 05/25/2024 3:00 PM FURNITURE POLISHER Office Visit Department of Urology in [place], [place] [address] [place] [phone] Yuliana Flanagan P.A.-C. [address] [place] [phone] Procedures Procedure Name Priority Date/Time Associated Diagnosis [...] P.A.-C. LAB BLOOD ADD-ON Final R esult [facility] [address] [place] [address], [facility] DTL [facility] [address] [place] [address] * CT Abdomen Pelvis without IV Contrast [...] Most Recently Relevant to Health Maintenance Insurance [facility] Care Teams Clinical Research Associate Relationship Specialty Start Date End Date Elsewhere, Pcp PCP - General Family Medicine 02/28/22
--- OUTSIDE RECORDS SUMMARY | 2024-05-05 13:26 | XMS_ITS | Encounter Summary ---
Author Organization [facility] Address [address] [place] [address] Care Team Providers Care Employment Clerk Name Role Phone Elsewhere, Pcp Primary Care Provider Unavailabl e Reason for Referral * Outpatient (Routine) - Authorized Specialty Diagnoses / Procedures Referred By Yaron t Referred To Contact Vascular Medicine Diagnoses Paraplegia (HCC) Abnormal Gait Non Orthopedic Pressure Injury (Ulcer) Of Unspecified Site Unspecified Stage Meenakshi Villarreal APRN, CNS, M.S. [address] [place] [phone] Phone: tel: fax: [facility] Referral ID Status Reason Start Date Expiration Date V isits Requested Visits Authorized [id number] Authorized 03/12/2024 09/11/2025 1 1 Reason for Visit * Reason Onset Date Comments Referral Requested 03/12/2024 Encounter Details Date Type Department Care Team (Latest Contact Info) Description 03/12/2024 Clinical Communication Department of Physical Medicine and Rehabilitation in [place], [place] [address] [place] [address] Meenakshi Villarreal APRN, MARY, M.S. [address] [place] [phone] Referral Requested Social History Tobacco Use Types [...] and heating? Not hard at all 11/24/2022 [facility] [place] of Occupat ional Health - Occupational Stress [...] place to sleep or slept in a chcf (including now)? No 11/24/2022 Nutrition Answer Date [...] (Latest Contact Info) Description 05/19/2024 1:00 PM ELECTRIC DETECTOR OPERATOR Telemedicine Department of Physical Medicine and Rehabilitation in [place], [place] [address] [place] [phone] Meenakshi Villarreal APRN, SUSTAINABILITY COACH, M.S. [address] [place] [phone] Discharge Disposition: Home or Self Care 05/25/2024 9:00 AM ELECTRIC DETECTOR OPERATOR Appointment Department of Laboratory Medicine and Pathology, [facility] in [place], [place] [address] [place] [phone] Yuliana Flanagan, P.A.-C. [address] [place] [phone] 05/25/2024 9:30 AM ELECTRIC DETECTOR OPERATOR Appointment Department of Radiology, [facility] in [place], [place] [address] [place] [phone] Yuliana Flanagan, P.A.-CGeno [address] [place] [phone] 05/25/2024 3:00 PM ELECTRIC DETECTOR OPERATOR Office Visit Department of Urology in [place], [place] [address] [place] [phone] Yuliana Flanagan, P.A.-CGeno [address] [place] [phone] Scheduled Referrals Name Type Priority Associated Diagnoses [...] Orthopedic documented in this encounter Care Teams Employment Clerk Relationship Specialty Start Date End Date Elsewhere, Pcp PCP - General Family Medicine 02/28/22 documented as of this encounter
--- OUTSIDE RECORDS SUMMARY | 2024-05-05 13:26 | XMS_ITS | Encounter Summary ---
Author Organization [facility] Address [address] [place] [address] Care Team Providers Care Wool Hanker Name Role Phone Elsewhere, Pcp Primary Care Provider Unavailabl e Encounter Details Date Type Department Care Team (Latest Contact Info) Description 02/19/2024 Clinical Communication Department of Physical Medicine and Rehabilitation in [place], [place] [address] [place] [phone] Meenakshi Villarreal, AVTAR, LEAD RECOVERER, M.S. [address] [place] [phone] Social History Tobacco Use Types Packs/Day Years [...] often do you attend chur ch or jain services? More than 4 times [...] (Latest Contact Info) Description 05/19/2024 1:00 PM COBBLER UPPER Telemedicine Department of Physical Medicine and Rehabilitation in [place], [place] [address] [place] [phone] Meenakshi Villarreal APRN, LEAD RECOVERER, M.S. [address] [place] [address] Discharge Disposition: Home or Self Care 05/25/2024 9:00 AM COBBLER UPPER Appointment Department of Laboratory Medicine and Pathology, [facility] in [place], [place] [address] [place] [address] Yuliana Flanagan P.A.-C. [address] [place] [phone] 05/25/2024 9:30 AM COBBLER UPPER Appointment Department of Radiology, [facility] in [place], [place] [address] [place] [address] Yuliana Flanagan P.A.-C. [address] [place] [phone] 05/25/2024 3:00 PM COBBLER UPPER Office Visit Department of Urology in [place], [place] [address] [place] [address] Yuliana Flanagan P.A.-C. [address] [place] [phone] documented as of this encounter Visit Diagnoses Diagnosis Abnormal Gait Non Orthopedic- Primary Paraplegia (HCC) Spasticity documented in this encounter Care Teams Wool Hanker Relationship Specialty Start Date End Date Elsewhere, Pcp PCP - General Family Medicine 02/28/22 documented as of this encounter
--- OUTSIDE RECORDS SUMMARY | 2024-05-05 13:26 | XMS_ITS | Encounter Summary ---
Author Organization [facility] Address [address] [place] [address] Care Team Providers Care Trade Manager Name Role Phone Elsewhere, Pcp Primary Care Provider Unavailabl e Encounter Details Date Type Department Care Team (Late st Contact Info) Description 09/12/2018 [facility] [address] [place] [address] Erma Morejon M.D. [address] [place] [address] Social History Tobacco Use Types Packs/Day Years [...] (Latest Contact Info) Description 05/19/2024 1:00 PM GOLD LEAF GILDER Telemedicine Department of Physical Medicine and Rehabilitation in [place], [place] [address] [place] [phone] Meenakshi Villarreal APRN, FARE ENFORCEMENT OFFICER, M.S. [address] [place] [phone] Discharge Disposition: Home or Self Care 05/25/2024 9:00 AM GOLD LEAF GILDER Appointment Department of Laboratory Medicine and Pathology, [facility], in [place], [place] [address] [place] [address] Yuliana Flanagan P.A.-C. [address] [place] [address] 05/25/2024 9:30 AM GOLD LEAF GILDER Appointment Department of Radiology, [facility], in [place], [place] [address] [place] [address] Yuliana Flanagan P.A.-C. [address] [place] [phone] 05/25/2024 3:00 PM GOLD LEAF GILDER Office Visit Department of Urology in [place], [place] [address] [place] [address] Yuliana Flanagan P.A.-C. [address] [place] [phone] documented as of this encounter Visit Diagnoses Not on filedocumented in this encounter Care Teams Trade Manager Relationship Specialty Start Date End Date Elsewhere, Pcp PCP - General Family Medicine 02/28/22 documented as of this encounter
--- OUTSIDE RECORDS SUMMARY | 2024-05-05 13:26 | XMS_ITS | Clinical Summary ---
Author Organization [facility] Address [place], [place] [address] Care Team Providers Care Space Systems Operations Superintendent Name Role Phone Macario Villa MD Primary [...] Recently Relevant to Health Maintenance Care Teams Space Systems Operations Superintendent Relationship Specialty Start Date End Date Macario Villa MD [address] [place] [address] PCP - General Emergency Medicine 02/22/16
--- OUTSIDE RECORDS SUMMARY | 2024-05-05 13:26 | XMS_ITS ---
Author Organization [facility] Address [address] [place] [address] Care Team Providers Care Hearing Stenographer Name Role Phone Unavailable Unavailable Unavailable Surgery Details Not on file Complications Check Surgery Details section. Procedure Estimated Blood Loss Check Surgery Details section. Procedure Findings Check Surgery Details section. Procedure Specimens Taken Check Surgery Details section.
--- OUTSIDE RECORDS SUMMARY | 2024-05-05 13:26 | XMS_ITS | Encounter Summary ---
Author Organization [facility] Address [address] [place] [address] Care Team Providers Care Grinder Name Role Phone Elsewhere, Pcp Primary Care [...] week 11/24/2022 How often do you attend [facility] or yarsani services? More than 4 times per year 11/24/2022 Do you belong to any clubs o r organizations such as gnosticist groups, unions, fraternal or athletic groups, or [...] and heating? Not hard at all 11/24/2022 [facility] of Occupat ional Health - Occupational [...] (Latest Contact Info) Description 05/19/2024 1:00 PM LIVESTOCK NUTRITIONIST Telemedicine Department of Physical Medicine and Rehabilitation in [place], [place] [address] [place] [phone] Meenakshi Villarreal APRN, POKER IN, M.S. [address] [place] [phone] Discharge Disposition: Home or Self Care 05/25/2024 9:00 AM LIVESTOCK NUTRITIONIST Appointment Department of Laboratory Medicine and Pathology, [facility], in [place], [place] 200 [place] [phone] Yuliana Flanagan, PYimi-Avel [address] [place] [phone] 05/25/2024 9:30 AM LIVESTOCK NUTRITIONIST Appointment Department of Radiology, [facility], in [place], [place] [address] [place] [address] Yuliana Flanagan P.A.-C. [address] [place] [address] 05/25/2024 3:00 PM LIVESTOCK NUTRITIONIST Office Visit Department of Urology in [place], [place] [address] [place] [address] Yuliana Flanagan P.A.-C. [address] [place] [address] documented as of this encounter Procedures Procedure [...] on filedocumented in this encounter Care Teams Grinder Relationship Specialty Start Date End Date Elsewhere, Pcp PCP - General Family Medicine 02/28/22 documented as of this encounter
--- OUTSIDE RECORDS SUMMARY | 2024-05-05 13:26 | XMS_ITS | Clinical Summary ---
Author Organization [facility] Address [address] [place] [address] Care Team Providers Care Professor Of Theatre Name Role Phone Elsewhere, Pcp Primary Care Provider Unavailabl e Source Comments Patient records contain information from all sites at [facility]. For routine questions regarding patient records, call [phone] during business hours, M-F 8:00 AM - 5:00 PM Central Time. Record requests for emergency care only can be directed to [phone] at any time.[facility] Allergies Active Allergy Reactions Criticality Noted [...] Ancillary Procedure Department of Vascular Surgery 03/16/2024 [facility] [address] [place] [address] Karime Garduno, AVTAR, C.N.P., D.N.P. 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 Referral Requested 02/19/2024 Clinical Communication Department of Physical Medicine and Rehabilitation in [address] [phone] Meenakshi Villarreal APRN, MARY, M.S. from Last [...] How often do you attend [facility] or scientology services? More than 4 times per year 11/24/2022 Do you belong to any clubs o r organizations such as yarsanism groups, unions, fraternal or athletic groups, or [...] and heating? Not hard at all 11/24/2022 [facility] of Occupat ional Health - Occupational Stress [...] (Latest Contact Info) Description 05/19/2024 1:00 PM AWNING SPREADER Telemedicine Department of Physical Medicine and Rehabilitation in [place], [place] [address] [place] [address] Meenakshi Villarreal APRN, LOSS MITIGATION SPECIALIST, M.S. [address] [place] [address] Discharge Disposition: Home or Self Care 05/25/2024 9:00 AM AWNING SPREADER Appointment Department of Laboratory Medicine and Pathology, [facility], in [place], [place] [address] [place] [address] Yuliana Flanagan P.A.-Avel [address] [place] [phone] 05/25/2024 9:30 AM AWNING SPREADER Appointment Department of Radiology, [facility], in [place], [place] [address] [place] [address] Yuliana Flanagan P.A.-Avel [address] [place] [phone] 05/25/2024 3:00 PM AWNING SPREADER Office Visit Department of Urology in [place], [place] [address] [place] [address] Yuliana Flanagan P.AGeno-CGeno [address] [place] [phone] Health Maintenance Due Date Last Done Comments CT Colonography 1955 Cologuard 1955 Colonoscopy 1955 Colorectal Cancer Screening 1955 FIT 1955 Hepatitis C Screening 1955 Zoster Vaccines (1 of 2) 2005 Pneumococcal vaccine (65+ years) (1 of 1 - PCV) 01/30/2020 DTaP,Tdap,and Td Vaccines (2 - Td or Tdap) 02/09/2021 02/09/2011 Depression Screening (Annual PHQ-2) 07/08/2023 Fall Risk Screen (Annual) 07/08/2023 COVID-19 Vaccine (1 - 2023-2 5 season) 2024 Influenza Vaccine (#1) 2024 Fasting Glucose for Diabetes Screening 05/03/2026 05/03/2023, 04/25/2022 Abdominal Aortic Aneurysm (AAA) Screen Completed 12/05/2018 IPV Vaccines Aged Out No longer eligi ble based on patient's age to complete this topic Procedures Procedure Name Priority Date/Time Associated Diagnosis [...] NON RAD IMAGING PROCE DURES Final Result IIIL NA * (ABNORMAL) Basic Metabolic Panel (05/03/2023 [...] P.A.-C. LAB BLOOD ADD-ON Final R esult [facility] [address] [place] [address], [place] [facility] [address] [place] [address] * CT Abdomen Pelvis without IV Contrast [...] Most Recently Relevant to Health Maintenance Insurance [place] [address] Care Teams Professor Of Theatre Relationship Specialty Start Date End Date Elsewhere, Pcp PCP - General Family Medicine 02/28/22
== END 2024-05-05 13:25 | disposition home or self-care (01) ==
LOC: WOUND 13:24
PROVIDERS: PCP Internal Medicine; Visit Provider Nurse Practitioner Family
DX: G62.9 Polyneuropathy, unspecified (principal); L97.528 Non-pressure chronic ulcer of other part of left foot with other specified severity; R26.89 Other abnormalities of gait and mobility
CPT/HCPCS: G0463

== ENCOUNTER 2024-05-19 11:01 | Outpatient (CLI) | payer MEDICARE, SELFPAY ==
--- OUTSIDE RECORDS SUMMARY | 2024-05-19 11:03 | XMS_ITS | Clinical Summary ---
Author Organization [facility] Address [place], [place] [address] Care Team Providers Care Sales Representative Education Courses Name Role Phone Macario Villa MD Primary [...] Recently Relevant to Health Maintenance Care Teams Sales Representative Education Courses Relationship Specialty Start Date End Date Macario Villa MD [address] [place] [address] PCP - General Emergency Medicine 02/22/16
--- OUTSIDE RECORDS SUMMARY | 2024-05-19 11:03 | XMS_ITS | Clinical Summary ---
Author Organization [facility] Address [address] [place] [address] Care Team Providers Care Real Estate Sales Associate Name Role Phone Elsewhere, Pcp Primary Care Provider Unavailabl e Source Comments Patient records contain information from all sites at [facility]. For routine questions regarding patient records, call [phone] during business hours, M-F 8:00 AM - 5:00 PM Central Time. Record requests for emergency care only can be directed to [phone] at any time.[facility] Allergies Active Allergy Reactions Criticality Noted [...] Ancillary Procedure Department of Vascular Surgery 03/16/2024 [facility] [address] [place] [address] Karime Garduno, AVTAR, C.N.P., D.N.P. 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 Referral Requested 02/19/2024 Clinical Communication Department of Physical Medicine and Rehabilitation in [address] [phone] Meenakshi Villarreal APRN, MARY, M.S. from Last [...] drink = 0.6 oz pur e alcohol) [facility] Utilities Answer Date Recorded In the past 12 months has e [employer], gas, oil, or water [employer] threatened to shut off services in your home? No 05/18/2024 Humiliation, Afraid, Rape, and Kick questionnair e [...] How often do you attend chur or zoroastrian services? More than 4 times [...] and heating? Not hard at all 11/24/2022 [facility] [place] of Occupat ional Health - Occupational Stress [...] exercise (like a brisk walk)? 0 days 05/18/2024 On average, how many minutes do you engage in exercise at this level? 0 min 05/18/2024 Hunger Vital Sign Answer Date Recorded Within the past 12 months, y ou worried that your food would run out before you got the money to buy more. Never true 05/18/20 24 Within the past 12 months, t he food you bought just didn't last and you didn't have money to get more. Never true 05/18/2024 PRAPARE - Transportation Answer Date Re corded In the past 12 months, has l ack of transportation kept you from medical appointments or from getting medications? No 05/08 In the past 12 months, has l ack of transportation kept you from meetings, work, or from getting things needed for daily living? No 05/18/2024 Nutrition Answer Date Recorded On average, how many serving s of fruits and vegetables do you eat per day (serving size is equal to 1 cup or approximately the size of a tennis ball)? 0-2 05/18/2024 Dental Answer Date Recorded Dental: Regular Dentist Yes 07/08/19 Employment Answer Date Recorded Employment status Retired 05/18/2024 Housing Stability Answer Date Recorded What is your living situation today? I have a [facility] place to live 05/18/2024 Education Answer Date Recorded What is the [...] (Latest Contact Info) Description 05/19/2024 1:00 PM VOLLEYBALL ASSEMBLER Telemedicine Department of Physical Medicine and Rehabilitation in [place], [place] [address] [place] [phone] Meenakshi Villarreal APRN, PUPPET DEVELOPER, M.S. [address] [place] [address] Discharge Disposition: Home or Self Care 05/25/2024 9:00 AM VOLLEYBALL ASSEMBLER Appointment Department of Laboratory Medicine and Pathology, [facility], in [place], [place] [address] [place] [address] Yuliana Flanagan P.A.-C. [address] [place] [phone] 05/25/2024 9:30 AM VOLLEYBALL ASSEMBLER Appointment Department of Radiology, [facility], in [place], [place] [address] [place] [address] Yuliana Flanagan P.A.-C. [address] [place] [phone] 05/25/2024 3:00 PM VOLLEYBALL ASSEMBLER Office Visit Department of Urology in [place], [place] [address] [place] [address] Yuliana Flanagan P.A.-C. [address] [place] [phone] Health Maintenance Due Date Last Done Comments [...] NON RAD IMAGING PROCE DURES Final Result IIND NA * (ABNORMAL) Basic Metabolic Panel (05/03/2023 [...] P.A.-C. LAB BLOOD ADD-ON Final R esult [facility] [address] [place] [address], [facility] [address] [place] [address] * CT Abdomen Pelvis without IV Contrast [...] Bladder contains air. José Miguel Chi M.D. [facility] CT PROCEDURES Final Resu lt from Last 3 Months or Most Recently Relevant to Health Maintenance Insurance [facility] Care Teams Real Estate Sales Associate Relationship Specialty Start Date End Date Elsewhere, Pcp PCP - General Family Medicine 02/28/22
--- OUTSIDE RECORDS SUMMARY | 2024-05-19 11:04 | XMS_ITS | Encounter Summary ---
Author Organization [facility] Address [address] [place] [address] Care Team Providers Care Credit Balance Specialist Name Role Phone Elsewhere, Pcp Primary Care Provider Unavailabl e Reason for Referral * Outpatient (Routine) - Authorized Specialty Diagnoses / Procedures Referred By Yaron t Referred To Contact Vascular Medicine Diagnoses Paraplegia (HCC) Abnormal Gait Non Orthopedic Pressure Injury (Ulcer) Of Unspecified Site Unspecified Stage Meenakshi Villarreal APRN, CNS, M.S. [address] [place] [phone] Phone: tel: fax: [facility] Referral ID Status Reason Start Date Expiration Date V isits Requested Visits Authorized [id number] Authorized 03/12/2024 09/11/2025 1 1 Reason for Visit * Reason Onset Date Comments Referral Requested 03/12/2024 Encounter Details Date Type Department Care Team (Latest Contact Info) Description 03/12/2024 Clinical Communication Department of Physical Medicine and Rehabilitation in [place], [place] [address] [place] [phone] Meenakshi Villarreal APRN, MARY, M.S. [address] [place] [phone] Referral Requested Social History Tobacco Use Types [...] How often do you attend chur or anglican services? More than 4 times per year [...] and heating? Not hard at all 11/24/2022 [facility] of Occupat ional Health - Occupational Stress [...] (Latest Contact Info) Description 05/19/2024 1:00 PM WEB DEVELOPMENT MANAGER Telemedicine Department of Physical Medicine and Rehabilitation in [place], [place] [address] [place] [address] Meenakshi Villarreal APRN, STOCK REPLENISHER, M.S. [address] [place] [phone] Discharge Disposition: Home or Self Care 05/25/2024 9:00 AM WEB DEVELOPMENT MANAGER Appointment Department of Laboratory Medicine and Pathology, [facility] in [place], [place] [address] [place] [phone] Yuliana Flanagan, P.A.-C. [address] [place] [phone] 05/25/2024 9:30 AM WEB DEVELOPMENT MANAGER Appointment Department of Radiology, [facility] in [place], [place] [address] [place] [phone] Yuliana Flanagan, P.A.-CGeno [address] [place] [phone] 05/25/2024 3:00 PM WEB DEVELOPMENT MANAGER Office Visit Department of Urology in [place], [place] [address] [place] [phone] Yuliana Flanagan, P.A.-CGeno [address] [place] [phone] Scheduled Referrals Name Type Priority Associated Diagnoses [...] Orthopedic documented in this encounter Care Teams Credit Balance Specialist Relationship Specialty Start Date End Date Elsewhere, Pcp PCP - General Family Medicine 02/28/22 documented as of this encounter
--- OUTSIDE RECORDS SUMMARY | 2024-05-19 11:04 | XMS_ITS | Encounter Summary ---
Author Organization [facility] Address [address] [place] [address] Care Team Providers Care Satellite Tv Installer Name Role Phone Elsewhere, Pcp Primary Care Provider Unavailabl e Reason for Referral * Outpatient (Routine) - Closed Specialty Diagnoses / Procedures Referred By Contact Referred To Contact Physical Medicine and Rehabilitation Diagnoses Stroke (HCC) Macario Villa M.D. Phone: tel: fax: [facility] Referral ID Status Reason Start Date Expiration Date Visits Re quested Visits Authorized [id number] Closed 08/26/2018 08/26/2019 1 1 HER HELPER Encounter Details Date Type Department Care Team (Late st Contact Info) Description 08/26/2018 [facility] [address] [place] [address] Macario Villa M.D. [address] [place] [address] Stroke (HCC) (Primary Dx) Social History Tobacco [...] (Latest Contact Info) Description 05/19/2024 1:00 PM ROUGHER HELPER Telemedicine Department of Physical Medicine and Rehabilitation in [place], [place] [address] [place] [phone] Meenakshi Villarreal APRN, LASER ENGINEER, M.S. [address] [place] [phone] Discharge Disposition: Home or Self Care 05/25/2024 9:00 AM ROUGHER HELPER Appointment Department of Laboratory Medicine and Pathology, [facility] in [place], [place] [address] [place] [phone] Yuliana Flanagan, P.A.-C. [address] [place] [phone] 05/25/2024 9:30 AM ROUGHER HELPER Appointment Department of Radiology, [facility] in [place], [place] [address] [place] [phone] Yuliana Flanagan, P.A.-CGeno [address] [place] [phone] 05/25/2024 3:00 PM ROUGHER HELPER Office Visit Department of Urology in [place], [place] [address] [place] [phone] Yuliana Flanagan, P.A.-CGeno [address] [place] [phone] Scheduled Referrals Name Type Priority Associated Diagnoses Orde r Schedule Neurology Referral Outpatient Referral Routine Stroke (HCC) Expected: 08/26/2018 (Approximate), Expires: 08/26/2021 documented as of this encounter Visit Diagnoses Diagnosis Stroke (HCC)- Primary documented in this encounter Care Teams Satellite Tv Installer Relationship Specialty Start Date End Date Elsewhere, Pcp PCP - General Family Medicine 02/28/22 documented as of this encounter
--- OUTSIDE RECORDS SUMMARY | 2024-05-19 11:04 | XMS_ITS | Encounter Summary ---
Author Organization [facility] Address [address] [place] [address] Care Team Providers Care Switch Repairer Name Role Phone Elsewhere, Pcp Primary Care Provider Unavailabl e Encounter Details Date Type Department Care Team (Latest Contact Info) Description 02/19/2024 Clinical Communication Department of Physical Medicine and Rehabilitation in [place], [place] [address] [place] [phone] Meenakshi Villarreal, AVTAR, SWITCHGEAR REPAIRER, M.S. [address] [place] [phone] Social History Tobacco Use Types Packs/Day Years [...] often do you attend chur ch or yazidism services? More than 4 times [...] (Latest Contact Info) Description 05/19/2024 1:00 PM MOTOR AND GENERATOR BRUSH MAKER Telemedicine Department of Physical Medicine and Rehabilitation in [place], [place] [address] [place] [phone] Meenakshi Villarreal APRN, SWITCHGEAR REPAIRER, M.S. [address] [place] [address] Discharge Disposition: Home or Self Care 05/25/2024 9:00 AM MOTOR AND GENERATOR BRUSH MAKER Appointment Department of Laboratory Medicine and Pathology, [facility] in [place], [place] [address] [place] [address] Yuliana Flanagan P.A.-C. [address] [place] [phone] 05/25/2024 9:30 AM MOTOR AND GENERATOR BRUSH MAKER Appointment Department of Radiology, [facility] in [place], [place] [address] [place] [address] Yuliana Flanagan P.A.-C. [address] [place] [phone] 05/25/2024 3:00 PM MOTOR AND GENERATOR BRUSH MAKER Office Visit Department of Urology in [place], [place] [address] [place] [address] Yuliana Flanagan P.A.-C. [address] [place] [phone] documented as of this encounter Visit Diagnoses Diagnosis Abnormal Gait Non Orthopedic- Primary Paraplegia (HCC) Spasticity documented in this encounter Care Teams Switch Repairer Relationship Specialty Start Date End Date Elsewhere, Pcp PCP - General Family Medicine 02/28/22 documented as of this encounter
--- OUTSIDE RECORDS SUMMARY | 2024-05-19 11:04 | XMS_ITS | Referral Summary ---
Author Organization [facility] Address [address] [place] [address] Care Team Providers Care Room Inspector Name Role Phone Elsewhere, Pcp Primary Care Provider Unavailabl e Source Comments Patient records contain information from all sites at [facility]. For routine questions regarding patient records, call [phone] during business hours, M-F 8:00 AM - 5:00 PM Central Time. Record requests for emergency care only can be directed to [phone] at any time.[facility] Encounters Date Type Department Care Team Description 03/16/2024 Ancillary Procedure Department of Vascular Surgery 03/16/[address] [address] Karime Garduno APRN, C.N.P., D.N.P. 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 Referral Requested 02/19/2024 Clinical Communication Department of Physical Medicine and Rehabilitation in [address] [phone] Meenakshi Villarreal APRN, HEEL SEAT SANDER, M.S. from Last 3 Months Allergies Active [...] drink = 0.6 oz pur e alcohol) [facility] Utilities Answer Date Recorded In the past 12 months has [employer], gas, oil, or water [employer] threatened to shut off services in your [...] often do you attend chur ch or quaker services? More than 4 times per year 11/24/2022 Do you belong to any clubs o r organizations such as scientology groups, unions, fraternal or athletic groups, or [...] and heating? Not hard at all 11/24/2022 [facility] of Occupat ional Health - [...] your living situation today? [facility] 05/18/2024 Education Answer [...] (Latest Contact Info) Description 05/19/2024 1:00 PM STEWARD/STEWARDESS RAILROAD DINING CAR Telemedicine Department of Physical Medicine and Rehabilitation in [place], [place] [address] [place] [phone] Meenakshi Villarreal APRN, HEEL SEAT SANDER, M.S. [address] [place] [address] Discharge Disposition: Home or Self Care 05/25/2024 9:00 AM STEWARD/STEWARDESS RAILROAD DINING CAR Appointment Department of Laboratory Medicine and Pathology, [facility], in [place], [place] [address] [place] [address] Yuliana Flanagan P.A.-C. [address] [place] [address] 05/25/2024 9:30 AM STEWARD/STEWARDESS RAILROAD DINING CAR Appointment Department of Radiology, [facility], in [place], [place] [address] [place] [address] Yuliana Flanagan P.A.-C. [address] [place] [address] 05/25/2024 3:00 PM STEWARD/STEWARDESS RAILROAD DINING CAR Office Visit Department of Urology in [place], [place] [address] [place] [phone] Yuliana Flanagan P.A.-C. [address] [place] [phone] Procedures Procedure Name Priority Date/Time Associated Diagnosis [...] NON RAD IMAGING PROCE DURES Final Result IIKS NA * (ABNORMAL) Basic Metabolic Panel (05/03/2023 [...] P.A.-C. LAB BLOOD ADD-ON Final R esult [facility] [address] [place] [address], [facility] [place] [address] [place] [address] * CT Abdomen Pelvis without IV Contrast [...] contains air. José Miguel MERINO CT PROCEDURES Final Resu lt from Last 3 Months or Most Recently Relevant to Health Maintenance Insurance [facility] Care Teams Room Inspector Relationship Specialty Start Date End Date Elsewhere, Pcp PCP - General Family Medicine 02/28/22
--- OUTSIDE RECORDS SUMMARY | 2024-05-19 11:04 | XMS_ITS | Encounter Summary ---
Author Organization [facility] Address [address] [place] [address] Care Team Providers Care Satellite Dish Installer Name Role Phone Elsewhere, Pcp Primary Care Provider Unavailabl e Reason for Referral * Outpatient (Routine) - Authorized Specialty Diagnoses / Procedures Referred By Contbradford t Referred To Contact Vascular Surgery Diagnoses Non-Pressure Chronic Ulcer Of Other Part Of Left Foot With Unspecified Severity (HCC) Karime Garduno APRN, C.N.P., D.N.P. [address] [place] [address] Phone: tel: fax: [facility] Referral ID Status Reason Start Date Expiration Date V isits Requested Visits Authorized [id number] Authorized 03/16/2024 09/15/2025 1 1 Encounter Details Date Type Department Care Team (Late st Contact Info) Description 03/16/2024 [facility] [address] [place] [address] Karime Garduno APRN, C.N.P., D.N.P. [address] [place] [phone] Non-Pressure Chronic Ulcer Of Other Part Of [...] How often do you attend chur or quaker services? More than 4 times per year 11/24/2022 Do you belong to any clubs o r organizations such as baptist groups, unions, fraternal or athletic groups, or [...] and heating? Not hard at all 11/24/2022 [facility] [place] [facility] - Occupational Stress Questionnaire Answer Date Recorded [...] (Latest Contact Info) Description 05/19/2024 1:00 PM HAND QUILTER Telemedicine Department of Physical Medicine and Rehabilitation in [place], [place] [address] [place] [phone] Meenakshi Villarreal APRN, FUEL TESTING TECHNICIAN, M.S. [address] [place] [phone] Discharge Disposition: Home or Self Care 05/25/2024 9:00 AM HAND QUILTER Appointment Department of Laboratory Medicine and Pathology, [facility] in [place], [place] [address] [place] [phone] Yuliana Flanagan, P.A.-C. [address] [place] [phone] 05/25/2024 9:30 AM HAND QUILTER Appointment Department of Radiology, [facility] in [place], [place] [address] [place] [phone] Yuliana Flanagan, P.A.-C. [address] [place] [phone] 05/25/2024 3:00 PM HAND QUILTER Office Visit Department of Urology in [place], [place] [address] [place] [phone] Yuliana Flanagan, P.A.-CGeno [address] [place] [phone] Scheduled Referrals Name Type Priority Associated Diagnoses Orde r Schedule Vascular Surgery Referral Outpatient Referral Routine Non-Pressure Chronic Ulcer Of Other Part Of Left Foot With Unspecified Severity (HCC) Expected: 03/16/2024 (Approximate), Expires: 06/15/2025 documented as of this encounter Visit Diagnoses Diagnosis Non-Pressure Chronic Ulcer Of Other Part Of Left Foot With Unspecified Severity (HCC)- Primary documented in this encounter Care Teams Satellite Dish Installer Relationship Specialty Start Date End Date Elsewhere, Pcp PCP - General Family Medicine 02/28/22 documented as of this encounter
--- OUTSIDE RECORDS SUMMARY | 2024-05-19 11:04 | XMS_ITS ---
Author Organization [facility] Address [address] [place] [address] Care Team Providers Care Waist Presser Name Role Phone Unavailable Unavailable Unavailable Surgery Details Not on file Complications Check Surgery Details section. Procedure Estimated Blood Loss Check Surgery Details section. Procedure Findings Check Surgery Details section. Procedure Specimens Taken Check Surgery Details section.
--- OUTSIDE RECORDS SUMMARY | 2024-05-19 11:04 | XMS_ITS | Encounter Summary ---
Author Organization [facility] Address [address] [place] [id number] Care Team Providers Care Ornament Stitcher Name Role Phone Elsewhere, Pcp Primary Care Provider Unavailabl e Encounter Details Date Type Department Care Team (Late st Contact Info) Description 09/12/2018 [facility] [address] [place] [address] Erma Morejon M.D. [address] [place] [address] Social History Tobacco Use Types Packs/Day Years [...] (Latest Contact Info) Description 05/19/2024 1:00 PM ROPEMAN Telemedicine Department of Physical Medicine and Rehabilitation in [place], [place] [address] [place] [phone] Meenakshi Villarreal APRN, SHAKER PLATE OPERATOR, M.S. [address] [place] [phone] Discharge Disposition: Home or Self Care 05/25/2024 9:00 AM ROPEMAN Appointment Department of Laboratory Medicine and Pathology, [facility], in [place], [place] [address] [place] [address] Yuliana Flanagan P.A.-C. [address] [place] [address] 05/25/2024 9:30 AM ROPEMAN Appointment Department of Radiology, [facility], in [place], [place] [address] [place] [address] Yuliana Flanagan P.A.-C. [address] [place] [phone] 05/25/2024 3:00 PM ROPEMAN Office Visit Department of Urology in [place], [place] [address] [place] [address] Yuliana Flanagan P.A.-C. [address] [place] [phone] documented as of this encounter Visit Diagnoses Not on filedocumented in this encounter Care Teams Ornament Stitcher Relationship Specialty Start Date End Date Elsewhere, Pcp PCP - General Family Medicine 02/28/22 documented as of this encounter
--- OUTSIDE RECORDS SUMMARY | 2024-05-19 11:04 | XMS_ITS | Encounter Summary ---
Author Organization [facility] Address [address] [place] [address] Care Team Providers Care Daycare Teacher Name Role Phone Elsewhere, Pcp Primary [...] week 11/24/2022 How often do you attend [facility]? More than 4 times [...] and heating? Not hard at all 11/24/2022 [facility] - Occupational [...] (Latest Contact Info) Description 05/19/2024 1:00 PM TROUSSEAU CONSULTANT Telemedicine Department of Physical Medicine and Rehabilitation in [place], [place] [address] [place] [phone] Meenakshi Villarreal APRN, PRODUCTION CONTROLLER, M.S. [address] [place] [phone] Discharge Disposition: Home or Self Care 05/25/2024 9:00 AM TROUSSEAU CONSULTANT Appointment Department of Laboratory Medicine and Pathology, [facility], in [place], [place] [address] [place] [phone] Yuliana Flanagan, PYimi-Avel [address] [place] [phone] 05/25/2024 9:30 AM TROUSSEAU CONSULTANT Appointment Department of Radiology, [facility], in [place], [place] [address] [place] [address] Yuliana Flanagan P.A.-C. [address] [place] [phone] 05/25/2024 3:00 PM TROUSSEAU CONSULTANT Office Visit Department of Urology in [place], [place] [address] [place] [address] Yuliana Flanagan P.A.-C. [address] [place] [phone] documented as of this encounter Procedures Procedure [...] on filedocumented in this encounter Care Teams Daycare Teacher Relationship Specialty Start Date End Date Elsewhere, Pcp PCP - General Family Medicine 02/28/22 documented as of this encounter
== END 2024-05-19 11:02 | disposition home or self-care (01) ==
LOC: WOUND 11:01
PROVIDERS: PCP Internal Medicine; Visit Provider Family Medicine
DX: R26.89 Other abnormalities of gait and mobility (principal); G99.0 Autonomic neuropathy in diseases classified elsewhere
CPT/HCPCS: G0463

== ENCOUNTER 2024-12-16 09:58 | Outpatient (CLI) | payer MEDICARE, BC, SELFPAY | END 2024-12-16 09:59 | disposition home or self-care (01) | LOC: NFLDREF 12-17 22:54 | PROVIDERS: PCP Internal Medicine; Referring Provider Internal Medicine; Visit Provider Internal Medicine | DX: E78.5 Hyperlipidemia, unspecified (principal); Z12.5 Encounter for screening for malignant neoplasm of prostate | CPT/HCPCS: 80053; 80061; G0103 ==